=== PATIENT | male | born 1960 | race Caucasian/White ===

== ENCOUNTER 2020-10-12 19:15 | Inpatient (IN) ==
--- NOTE | 2020-10-12 21:24 | DR.DIZZY ---
HPI Time seen Time Seen by Provider: 10/12/20 21:16 PCP Primary Care Physician: Maggie HPI Comment HPI Comment: He's feeling dizzy as below with diarrhea x 2 days after he used an otc laxative; admits using otc laxative quite a bit to have a bm; otherwise, he's extremely constipated; no n/v/f/c; he has a cough when he "drinks water"; admits abd pain but denies wt loss, h/o anemia, cp, sob, dysuria and hematuria. Complaint Chief Complaint:: "I feel dizzy. When I pee, I pee a lot. Dry mouth. Pain in my neck and back from bad discs." COVID-19 Coronavirus risk:travel/contact w/high risk person: No Has patient experienced Coronavirus symptoms: No Source History Provided: Patient Timing Onset of Chief Complaint: 10/10/20 Context Stroke Symptoms: None PMH PMH Past Medical History: Yes Past Medical History: Arthritis Past Medical History Comment: pain doctor for pain management Past Surgical History: Yes Surgical History: Cholecystectomy Family History History of Family Medical Conditions: No Family Medical History: Cancer Social History Alcohol Use: None Do you use any recreational Drugs:: No Lives With: Spouse Lives Where: Home Travel Risk Coronavirus risk:travel/contact w/high risk person: No Has patient experienced Coronavirus symptoms: No Infectious screening In the last 2 months have you had wt loss of >10#?: NO Have you had fever, night sweats or hemotysis?: No Have you traveled outside the country in the last 6 months?: No Isolation: Standard ROS Review of Systems Eyes: No Symptoms Reported ENTM: No Symptoms Reported Cardiovascular: No Symptoms Reported Genitourinary: No Symptoms Reported Neurological: No Symptoms Reported Integumentary: No Symptoms Reported Hematologic/Lymphatic: No Symptoms Reported PE Vital Signs Vitals: Temperature 98.1 F Pulse Rate [Left] 92 Pulse Rate 86 Respiratory Rate 16 Blood Pressure [Left Arm] 124/56 Blood Pressure [Right Arm] 176/80 Blood Pressure 118/60 O2 Sat by Pulse Oximetry 98 General Limitations: No Limitations General Appearance: Alert and In No Apparent Distress Head Head Exam: Normal Inspection Eyes Eye exam: Normal Appearance ENT ENT Exam: Normal Exam, Normal Oropharynx and Normal External Ear Exam Neck Neck Exam: Normal Inspection and Full ROM Chest Chest Inspection: Normal Inspection Respiratory Respiratory Exam: Normal Lung Sounds Bilat Cardiovascular Cardiovascular Exam: Regular Rate and Normal Rhythm Abdominal Exam Abdominal Exam: Normal Inspection, Soft and Hyperactive Bowel Sounds Abdominal Tenderness: Epigastrium Rectal Rectal Exam: Deferred Extremeties Extremities Exam: Normal Inspection and Full ROM Back Back Exam: Normal Inspection and Full ROM Neurologic Neurological Exam: Alert and Oriented X3 Psychiatric Psychiatric Exam: Normal Affect and Normal Mood Skin Skin Exam: Pallor COURSE Consultation Call Returned: 00:05 (admission d/w Dr Serrano who accepts; transfuse) ROR Labs Reviewed Laboratory Results Reviewed?: Yes Result Diagrams: 10/12/20 21:30 10/12/20 21:30 Laboratory: WBC 32.8 X10^3/uL (3.6-10.0) H* 10/12/20 21: RBC 3.98 X10^6/uL (4.7-6.0) L 10/12/20 21:30 Hgb 7.7 g/dL (13.5-18.0) L 10/12/20 21: Hct 25.7 % (42.0-54.0) L 10/12/20 21: MCV 64.6 fL (80.0-100.0) L 10/12/20 21:30 MCH 19.3 pg (27.0-34.0) L 10/12/20 21: MCHC 29.9 g/dL (33.0-35.0) L 10/12/20 21:30 RDW 18.8 % (11.6-16.5) H 10/12/20 21:30 Plt Count 409 X10^3/uL (150.0-450.0) 10/12/20 21: Plt Count Comment Adequate (ADEQUATE) 10/12/20 21: MPV 7.4 fL (7.4-11.0) 10/12/20 21:30 Neut % (Auto) 86.5 % (42.0-75.0) H 10/12/20 21: Lymph % (Auto) 8.2 % (21.0-51.0) L 10/12/20 21:30 [place] % (Auto) 4.4 % (0.0-13.0) 10/12/20 21: Eos % (Auto) 0.4 % (0.9-2.9) L 10/12/20 21:30 Baso % (Auto) 0.5 % (0.2-1.0) 10/12/20 21:30 Neut # (Auto) 28.3 x10^3/uL (2.2-4.8) H 10/12/20 21:30 Lymph # (Auto) 2.7 X10^3/uL (1.3-2.9) 10/12/20 21:30 [place] # (Auto) 1.4 x10^3/uL (0.3-0.8) H 10/12/20 21:30 Eos # (Auto) 0.1 x10^3/uL (0.0-0.2) 10/12/20 21:30 Baso # (Auto) 0.2 X10^3/uL (0.0-0.1) H 10/12/20 21:30 Absolute Nucleated RBC 0.1 /100WBC 10/12/20 21:30 Total Counted 100 10/12/20 21:30 Neutrophils % (Manual) 91 % (39-76) H 10/12/20 21:30 Lymphocytes % (Manual) 7 % (13-43) L 10/12/20 21:30 Monocytes % (Manual) 2 % (4-9) L 10/12/20 21:30 Plt Morphology Comment Normal (NORMAL) 10/12/20 21: RBC Morphology Abnormal (NORMAL) 10/12/20 21:30 Hypochromasia 2+ A 10/12/20 21:30 Microcytosis 2+ A 10/12/20 21:30 Target Cells Present 10/12/20 21:30 Sodium 132 mmol/L (136-145) L 10/12/20 21:30 Corrected Sodium TNP 10/12/20 21:30 Potassium 4.7 mmol/L (3.5-5.1) 10/12/20 21:30 Chloride 98 mmol/L (98-107) 10/12/20 21: Carbon Dioxide 27.1 mmol/L (21-32) 10/12/20 21:30 BUN 36 mg/dL (7-18) H 10/12/20 21:30 Creatinine 1.90 mg/dL (0.70-1.30) H 10/12/20 21:30 Est GFR (MDRD) Af Amer 47 (>60) L 10/12/20 21:30 Est GFR (MDRD) Non-Af 38 (>60) L 10/12/20 21: Glucose 103 mg/dL (65-99) H 10/12/20 21:30 Calcium 8.6 mg/dL (8.5-10.1) 10/12/20 21: Corrected Calcium 10.3 mg/dL (8.5-10.1) H 10/12/20:30 Total Bilirubin 0.60 mg/dL (0.2-1.0) 10/12/20: AST 89 Units/L (15-37) H 10/12/20: ALT 53 Units/L (12-78) 10/12/20: Alkaline Phosphatase 293 Units/L (46-116) H 10/12/20: Total Protein 6.7 g/dL (6.4-8.2) 10/12/20: Albumin 1.9 g/dL (3.4-5.0) L 10/12/20: Globulin 4.8 g/dL (2.5-4.5) H 10/12/20 21: Albumin/Globulin Ratio 0.4 Ratio (1.1-2.1) L 10/12/20: Lipase 46 Units/L (73-393) L 10/12/20 21:30 Blood Type O NEGATIVE 10/12/20 23:20 Antibody Screen Negative 10/12/20 23:20 XRAY X-ray Results: ct abd: - Bilateral nonobstructing nephrolithiasis is seen. Mild left-sided hydroureter and hydronephrosis is present and may be due to a recently passed kidney stone. - Moderate to severe constipation is noted. In addition, there is progressively worsening colonic wall edema with pericolic inflammatory changes involving the rectosigmoid region. Overall, this appears worsened when compared to the prior study dated April 26, 2019. Differential diagnosis for this imaging feature should include, but is not limited to infectious, inflammatory process, or possible underlying malignancy. Given the severity of the constipation, I am concerned about the possibility of obstruction due to a mass causing constipation. Follow-up with surgery may be obtained as clinically indicated. - Status post cholecystectomy abd series: . Abundant fecal material is seen within the left-sided large bowel loops and rectum in keeping with constipation and possible fecal retention in the appropriate clinical setting. 2. Abundant air is seen within up to 6.1 cm dilated right-sided large bowel loops (proximal to the fecal column, and small bowel loops, which may represent obstipation and/or ileus. 3. No gross organomegaly, free intraperitoneal air, or suspicious calcifications seen. Opioid Opioid Risk Tool Age (Shakir box if 16-45): Yes History of Preadolescent Sexual Abuse: No Total: 1 Total Score Risk Category: Low Risk Copyright: Noe MALONEY predicting aberrant behaviors Diagnosis Discharge Problem: Neutrophilic leukocytosis, Dehydration, Symptomatic anemia, Bilateral nephrolithiasis Diarrhea Qualifiers: Diarrhea type: unspecified type Qualified Code(s): R19.7 - Diarrhea, unspecified Anemia Qualifiers: Anemia type: unspecified type Qualified Code(s): D64.9 - Anemia, unspecified Renal failure, acute Qualifiers: Acute renal failure type: unspecified Qualified Code(s): N17.9 - Acute kidney failure, unspecified Constipation Qualifiers: Constipation type: unspecified constipation type Qualified Code(s): K59.00 - Constipation, unspecified Instructions Instructions: Diarrhea, Adult, Madn-mn-Lzyd Forms: Precautions for COVID19 Patient Portal Social Distancing
--- NOTE | 2020-10-12 21:47 | RAD ---
EXAM: ABDOMEN X-RAY SERIES WITH CXRHISTORY: Abdominal pain.TECHNIQUE: Supine and erect views of the abdomen; frontal single view CXRCOMPARISON: None.FINDINGS:ABDOMEN: Abundant fecal material is seen within the left-sided large bowel loops and rectum in keeping with constipation and possible fecal retention in the appropriate clinical setting.Abundant air is seen within up to 6.1 cm dilated right-sided large bowel loops (proximal to the fecal column, and small bowel loops, which may represent obstipation and/or ileus.No gross organomegaly, free intraperitoneal air, or suspicious calcifications seen. Multiple surgical clips are seen in the right upper quadrant. Diffuse osteopenia is noted.CHEST: The heart size and mediastinum are within normal limits. The lung vallejo and costophrenic angles are clear. There is no acute parenchymal infiltrate, pleural effusion, or pneumothorax seen. The visualized bony structures are within normal limits.IMPRESSION:1. Abundant fecal material is seen within the left-sided large bowel loops and rectum in keeping with constipation and possible fecal retention in the appropriate clinical setting.2. Abundant air is seen within up to 6.1 cm dilated right-sided large bowel loops (proximal to the fecal column, and small bowel loops, which may represent obstipation and/or ileus.3. No gross organomegaly, free intraperitoneal air, or suspicious calcifications seen.4. No evidence for acute cardiopulmonary disease seen.Electronically signed by: Lindsay Quiñonez (Oct 12, 2020 21:46:14)
[2020-10-12 21:58] LABS: ALANINE AMINOTRANSFERASE 53 Units/L (12-78); ALBUMIN 1.9 g/dL (3.4-5.0); ALKALINE PHOSPHATASE 293 Units/L (46-116); ASPARTATE AMINO TRANSFERASE 89 Units/L (15-37); BLOOD UREA NITROGEN 36 mg/dL (7-18); CALCIUM 8.6 mg/dL (8.5-10.1); CARBON DIOXIDE 27.1 mmol/L (21-32); CHLORIDE 98 mmol/L (98-107); COR CA(FOR HYPOALB) 10.3 mg/dL (8.5-10.1); LIPASE 46 Units/L (73-393); SODIUM 132 mmol/L (136-145); TOTAL PROTEIN 6.7 g/dL (6.4-8.2); eGFR NON BLACK RACES 38 (>60)
[2020-10-12 22:02] LABS: BASOPHILS # (AUTO) 0.2 X10^3/uL (0.0-0.1); BASOPHILS % (AUTO) 0.5 % (0.2-1.0); EOSINOPHILS # (AUTO) 0.1 x10^3/uL (0.0-0.2); EOSINOPHILS % (AUTO) 0.4 % (0.9-2.9); HEMATOCRIT 25.7 % (42.0-54.0); HEMOGLOBIN 7.7 g/dL (13.5-18.0); LYMPHOCYTES # (AUTO) 2.7 X10^3/uL (1.3-2.9); LYMPHOCYTES % (AUTO) 8.2 % (21.0-51.0); MEAN CORPUSCULAR HEMOGLOBIN 19.3 pg (27.0-34.0); MEAN CORPUSCULAR HGB CONC 29.9 g/dL (33.0-35.0); MEAN CORPUSCULAR VOLUME 64.6 fL (80.0-100.0); MEAN PLATELET VOLUME 7.4 fL (7.4-11.0); MONOCYTES # (AUTO) 1.4 x10^3/uL (0.3-0.8); MONOCYTES % (AUTO) 4.4 % (0.0-13.0); NEUTROPHILS # (AUTO) 28.3 x10^3/uL (2.2-4.8); NEUTROPHILS % (AUTO) 86.5 % (42.0-75.0); PLATELET COUNT 409 X10^3/uL (150.0-450.0); RED BLOOD COUNT 3.98 X10^6/uL (4.7-6.0); RED CELL DISTRIBUTION WIDTH 18.8 % (11.6-16.5)
[2020-10-12 22:19] LABS: HYPOCHROMASIA 2+; MICROCYTOSIS 2+; PLATELET MORPHOLOGY COMMENT NORMAL (NORMAL); TARGET CELLS PRESENT; WHITE BLOOD COUNT 32.8 X10^3/uL (3.6-10.0)
[2020-10-12] MEDS ORDERED: NS 1000 ML 1,000 ML ONE (23:25)
[2020-10-12] MEDS: NS 1000 ML 1,000 ML IV SCH (23:32)
--- NOTE | 2020-10-13 02:02 | CT ---
STUDY: CT ABDOMEN AND PELVIS WITHOUT IV CONTRASTCOMPARISON: April 26, 2019TECHNIQUE: Axial images were obtained of the abdomen and pelvis without IV contrast. Sagittal and coronal reformatted images were provided. All images were reviewed in a variety of windows and levels.RADIATION REDUCTION TECHNIQUE: Automated exposure control, adjustment of the mA or kV according to patient size, or iterative reconstruction techniques were used.HISTORY: PT STATES "I FEEL DIZZY, WHEN I PEE, I PEE ALOT. DRY MOUTH. PAIN IN MY NECK AND BACK FROM BAD DISCS" PT IS ALSO HAVING DIARRHEA, HE STATES "I TOOK A LAXATIVE"FINDINGS:Please note that lack of IV contrast does limit evaluation of the soft tissues and vascular detail.The visualized lower lung zones demonstrates scar-like changes with mild pleural thickening. The heart size is within normal limits. There is no evidence of a pericardial effusion.The liver, spleen, pancreas, adrenal glands, and kidneys are grossly unremarkable. The patient is status post cholecystectomy. Calcifications in the liver and spleen is most likely from prior cholecystectomy. Mild right-sided hydroureter and hydronephrosis is seen which may be from a recently passed kidney stone. Multiple calcified phleboliths are seen in the lower pelvis.Bilateral nonobstructing nephrolithiasis is noted.The stomach and small bowel appear grossly unremarkable. There is marked colonic wall thickening with pericolonic inflammatory changes around the rectosigmoid colon. Severe constipation is noted. These imaging features in the rectosigmoid colon are worrisome for a possible colonic mass which may be due to malignancy. Please note, this finding was previously noted on the April 26, 2019 CT examination but this appears worsened when compared to the prior study.There is no evidence of retroperitoneal or mesenteric lymphadenopathy.The visualized bones demonstrate degenerative changes. There are no concerning lytic or blastic lesions identified.IMPRESSION:- Bilateral nonobstructing nephrolithiasis is seen. Mild left-sided hydroureter and hydronephrosis is present and may be due to a recently passed kidney stone.- Moderate to severe constipation is noted. In addition, there is progressively worsening colonic wall edema with pericolic inflammatory changes involving the rectosigmoid region. Overall, this appears worsened when compared to the prior study dated April 26, 2019. Differential diagnosis for this imaging feature should include, but is not limited to infectious, inflammatory process, or possible underlying malignancy. Given the severity of the constipation, I am concerned about the possibility of obstruction due to a mass causing constipation. Follow-up with surgery may be obtained as clinically indicated.- Status post cholecystectomyElectronically signed by: Man Valladares (Oct 13, 2020 02:01:05)
[2020-10-13] MEDS ORDERED: NS 1000 ML 1,000 ML IV SCH (03:00)
[2020-10-13] MEDS ORDERED: PERCOCET TAB 5/325 MG ONE (03:03)
[2020-10-13] MEDS: PERCOCET TAB 5/325 MG PO PRN ×3 (03:07→20:59)
[2020-10-13] MEDS ORDERED: NS 500 ML IV 500 ML IV ONE (04:46)
[2020-10-13 05:56] LABS: BASOPHILS # (AUTO) 0.1 X10^3/uL (0.0-0.1); BASOPHILS % (AUTO) 0.2 % (0.2-1.0); EOSINOPHILS # (AUTO) 0.1 x10^3/uL (0.0-0.2); EOSINOPHILS % (AUTO) 0.2 % (0.9-2.9); HEMATOCRIT 27.1 % (42.0-54.0); HEMOGLOBIN 8.3 g/dL (13.5-18.0); MEAN CORPUSCULAR HEMOGLOBIN 19.7 pg (27.0-34.0); MEAN CORPUSCULAR HGB CONC 30.6 g/dL (33.0-35.0); MEAN CORPUSCULAR VOLUME 64.2 fL (80.0-100.0); MEAN PLATELET VOLUME 7.7 fL (7.4-11.0); MONOCYTES % (AUTO) 3.7 % (0.0-13.0); NEUTROPHILS # (AUTO) 25.3 x10^3/uL (2.2-4.8); NEUTROPHILS % (AUTO) 88.9 % (42.0-75.0); PLATELET COUNT 414 X10^3/uL (150.0-450.0); RED BLOOD COUNT 4.21 X10^6/uL (4.7-6.0); RED CELL DISTRIBUTION WIDTH 19.6 % (11.6-16.5); WHITE BLOOD COUNT 28.4 X10^3/uL (3.6-10.0)
[2020-10-13 05:59] LABS: ALANINE AMINOTRANSFERASE 58 Units/L (12-78); ALBUMIN 2.2 g/dL (3.4-5.0); ALKALINE PHOSPHATASE 346 Units/L (46-116); ASPARTATE AMINO TRANSFERASE 91 Units/L (15-37); BLOOD UREA NITROGEN 35 mg/dL (7-18); CARBON DIOXIDE 25.2 mmol/L (21-32); CHLORIDE 96 mmol/L (98-107); COR CA(FOR HYPOALB) 10.4 mg/dL (8.5-10.1); CREATININE 1.73 mg/dL (0.70-1.30); SODIUM 133 mmol/L (136-145); TOTAL PROTEIN 7.6 g/dL (6.4-8.2); eGFR NON BLACK RACES 43 (>60)
[2020-10-13 06:15] LABS: BILIRUBIN,URINE NEGATIVE (NEGATIVE); BLOOD/HEMOGLOBIN,URINE 5+ (NEGATIVE); GLUCOSE, URINE NEGATIVE (NEGATIVE); KETONES,URINE NEGATIVE (NEGATIVE); LEUKOCYTE ESTERASE ,URINE 3+ (NEGATIVE); NITRITES,URINE NEGATIVE (NEGATIVE); PROTEIN,URINE 3+ (NEGATIVE); UROBILINOGEN,URINE NORMAL (NORMAL)
[2020-10-13] MEDS: NS 1000 ML 1,000 ML IV SCH ×4 (06:29→23:09)
[2020-10-13 06:50] LABS: APPEARANCE,URINE SLIGHTLY HAZY (CLEAR); BACTERIA,URINE TRACE /HPF (NEGATIVE); COLOR,URINE YELLOW (YELLOW); SQUAMOUS EPITHELIAL CELL,UR RARE /HPF (NEGATIVE)
[2020-10-13 07:19] LABS: ANISOCYTOSIS SLIGHT; BAND NEUTROPHILS % 14 % (0-10); HYPOCHROMASIA 1+; PLATELET MORPHOLOGY COMMENT NORMAL (NORMAL)
[2020-10-13 08:54] LABS: IRON < 5 ug/dL (50-175)
[2020-10-13] MEDS ORDERED: NULYTELY or GO-LYTELY PO SCH (09:00)
[2020-10-13] MEDS ORDERED: COLACE CAP 100 MG PO SCH (09:00)
[2020-10-13] MEDS: PriLOSEC PO SCH (10:15)
[2020-10-13] MEDS ORDERED: LINZESS PO PRN (11:19)
[2020-10-13 11:28] LABS: MICROCYTOSIS 2+
[2020-10-13] MEDS ORDERED: ZOFRAN INJ 4 MG VIAL IVP NR (12:00)
[2020-10-13 13:15] VITALS: BMI 19.5
[2020-10-13] MEDS ORDERED: NS 100 ML IV + SPIKE MINIBAG* 100 ML IV ONE (17:47)
[2020-10-13] MEDS ORDERED: MERREM VIAL ONE (17:47)
[2020-10-13] MEDS: MERREM VIAL 500 MG in NS 100 ML IV + SPIKE MINIBAG* 100 ML IV SCH ×2 (19:00→21:00)
[2020-10-14] MEDS: MERREM VIAL 500 MG in NS 100 ML IV + SPIKE MINIBAG* 100 ML IV SCH ×3 (06:06→22:10)
--- NOTE | 2020-10-14 06:24 | RAD ---
[id number] is mild gaseous distention of scattered segments of small bowel and colon. The appearance does not suggest mechanical obstruction. There is n o evidence for mass, organ enlargement or urinary calcification. Surgical clips right upper quadrant. The lung bases are clear.IMPRESSIONMild nonobstructive intestinal distention. No excessive fecal bur den is identified.Electronically signed by: SHELLEY PUGH (Oct 14, 2020 06:22:36)
[2020-10-14 06:35] LABS: BASOPHILS % (AUTO) 0.1 % (0.2-1.0); EOSINOPHILS % (AUTO) 0.2 % (0.9-2.9); HEMATOCRIT 33.5 % (42.0-54.0); HEMOGLOBIN 10.5 g/dL (13.5-18.0); LYMPHOCYTES # (AUTO) 1.5 X10^3/uL (1.3-2.9); LYMPHOCYTES % (AUTO) 6.5 % (21.0-51.0); MEAN CORPUSCULAR HEMOGLOBIN 22.1 pg (27.0-34.0); MEAN CORPUSCULAR HGB CONC 31.5 g/dL (33.0-35.0); MEAN PLATELET VOLUME 7.7 fL (7.4-11.0); MONOCYTES # (AUTO) 1.3 x10^3/uL (0.3-0.8); MONOCYTES % (AUTO) 5.9 % (0.0-13.0); NEUTROPHILS # (AUTO) 19.8 x10^3/uL (2.2-4.8); NEUTROPHILS % (AUTO) 87.3 % (42.0-75.0); PLATELET COUNT 332 X10^3/uL (150.0-450.0); RED BLOOD COUNT 4.78 X10^6/uL (4.7-6.0); RED CELL DISTRIBUTION WIDTH 25.1 % (11.6-16.5); WHITE BLOOD COUNT 22.7 X10^3/uL (3.6-10.0)
[2020-10-14 06:48] LABS: ALANINE AMINOTRANSFERASE 60 Units/L (12-78); ALBUMIN 1.8 g/dL (3.4-5.0); ALKALINE PHOSPHATASE 522 Units/L (46-116); ASPARTATE AMINO TRANSFERASE 87 Units/L (15-37); BLOOD UREA NITROGEN 21 mg/dL (7-18); CALCIUM 8.8 mg/dL (8.5-10.1); CARBON DIOXIDE 26.7 mmol/L (21-32); CHLORIDE 99 mmol/L (98-107); COR CA(FOR HYPOALB) 10.6 mg/dL (8.5-10.1); CREATININE 1.28 mg/dL (0.70-1.30); SODIUM 135 mmol/L (136-145); TOTAL PROTEIN 6.6 g/dL (6.4-8.2); eGFR NON BLACK RACES > 60 (>60)
[2020-10-14 07:10] LABS: BAND NEUTROPHILS % 3 % (0-10); PLATELET MORPHOLOGY COMMENT NORMAL (NORMAL)
[2020-10-14 07:11] LABS: ANISOCYTOSIS 3+
[2020-10-14] MEDS: PriLOSEC PO SCH (08:45)
[2020-10-14] MEDS ORDERED: LINZESS PO SCH (09:00)
[2020-10-14] MEDS ORDERED: NS 100 ML IV 100 ML with VENOFER 400 MG IV NR ×2 (09:00)
[2020-10-14] MEDS: NS 1000 ML 1,000 ML IV SCH ×2 (10:22→14:57)
[2020-10-14] MEDS: COLACE CAP 100 MG PO SCH ×2 (10:24→20:47)
--- NOTE | 2020-10-14 11:41 | DR.PROGNOT ---
Hospital Progress Notes - Progress Note for Day of: Progress Note Date: 10/14/20 - Chief Complaint Chief Complaint: having moderate abdominal pain and loose bloody mucousy BM . no nausea or vomiting .. having BLOOD transfusioin - Past Medical Family Social History Past Med/Fam/Surg Hx: No changes since H&P Allergies: Allergies tramadol Allergy (Unknown, Verified 10/12/20 20:50) meloxicam [From Mobic] Allergy (Verified 10/12/20 20:50) Penicillins Allergy (Verified 04/26/19 00:59) - Review Of Systems ROS: No change since H&P - Vital Signs Vital Signs: Temperature 99.3 F Pulse Rate [Left] 86 Pulse Rate 86 Respiratory Rate 20 Blood Pressure [Left Arm] 136/65 Blood Pressure [Right Arm] 152/69 Blood Pressure 118/60 O2 Sat by Pulse Oximetry 94 - Physical Exam Oriented: Normal Eyes: Normal Ear: Normal Nose: Normal Respiratory: Normal Cardiovascular: Normal : Normal GI:Auscultation: Normal GI: Tenderness: Diffuse (mild distention and tympany ..BS+.. rectal exam revealed large, friable low rectal mass with partial obstruction .) Skin: Normal Musculoskeletal: Normal Psychiatric: Normal Mood Description: Calm Speech Pattern: Clear, Appropriate - Laboratory and Diagnostics Result Diagrams: 10/14/20 06:08 10/14/20 06:08 Labs: Laboratory WBC 22.7 X10^3/uL (3.6-10.0) H 10/14/20 06:08 RBC 4.78 X10^6/uL (4.7-6.0) 10/14/20 06:08 Hgb 10.5 g/dL (13.5-18.0) L D 10/14/20 06:08 Hct 33.5 % (42.0-54.0) L 10/14/20 06:08 MCV 70.0 fL (80.0-100.0) L 10/14/20 06:08 MCH 22.1 pg (27.0-34.0) L 10/14/20 06:08 MCHC 31.5 g/dL (33.0-35.0) L 10/14/20 06:08 RDW 25.1 % (11.6-16.5) H 10/14/20 06:08 Plt Count 332 X10^3/uL (150.0-450.0) 10/14/20 06:08 Plt Count Comment Adequate (ADEQUATE) 10/14/20 06:08 MPV 7.7 fL (7.4-11.0) 10/14/20 06:08 Neut % (Auto) 87.3 % (42.0-75.0) H 10/14/20 06:08 Lymph % (Auto) 6.5 % (21.0-51.0) L 10/14/20 06:08 [place] % (Auto) 5.9 % (0.0-13.0) 10/14/20 06:08 Eos % (Auto) 0.2 % (0.9-2.9) L 10/14/20 06:08 Baso % (Auto) 0.1 % (0.2-1.0) L 10/14/20 06:08 Neut # (Auto) 19.8 x10^3/uL (2.2-4.8) H 10/14/20 06:08 Lymph # (Auto) 1.5 X10^3/uL (1.3-2.9) 10/14/20 06:08 [place] # (Auto) 1.3 x10^3/uL (0.3-0.8) H 10/14/20 06:08 Eos # (Auto) 0.0 x10^3/uL (0.0-0.2) 10/14/20 06:08 Baso # (Auto) 0.0 X10^3/uL (0.0-0.1) 10/14/20 06:08 Absolute Nucleated RBC 0.0 /100WBC 10/14/20 06:08 Total Counted 0 10/14/20 06:08 Neutrophils % (Manual) 89 % (39-76) H 10/14/20 06:08 Band Neutrophils % 3 % (0-10) 10/14/20 06:08 Lymphocytes % (Manual) 4 % (13-43) L 10/14/20 06:08 Monocytes % (Manual) 4 % (4-9) 10/14/20 06:08 Plt Morphology Comment Normal (NORMAL) 10/14/20 06:08 RBC Morphology Abnormal (NORMAL) 10/14/20 06:08 Dimorphic RBCs Slight 10/14/20 06:08 Hypochromasia 1+ A 10/13/20 04:00 Anisocytosis 3+ A 10/14/20 06:08 Microcytosis 2+ A 10/13/20 04:00 Macrocytosis Wall Cleaner 10/13/20 04:00 Target Cells Present 10/12/20 21:30 Sodium 135 mmol/L (136-145) L 10/14/20 06:08 Corrected Sodium TNP 10/14/20 06:08 Potassium 3.6 mmol/L (3.5-5.1) 10/14/20 06:08 Chloride 99 mmol/L (98-107) 10/14/20 06:08 Carbon Dioxide 26.7 mmol/L (21-32) 10/14/20 06:08 BUN 21 mg/dL (7-18) H 10/14/20 06:08 Creatinine 1.28 mg/dL (0.70-1.30) 10/14/20 06:08 Est GFR (MDRD) Af Amer > 60 (>60) 10/14/20 06:08 Est GFR (MDRD) Non-Af > 60 (>60) 10/14/20 06:08 Glucose 91 mg/dL (65-99) 10/14/20 06:08 POC Glucose (mg/dL) 86 mg/dL (65-99) 10/14/20 11:33 Calcium 8.8 mg/dL (8.5-10.1) 10/14/20 06:08 Corrected Calcium 10.6 mg/dL (8.5-10.1) H 10/14/20 06:08 Iron < 5 ug/dL (50-175) L 10/13/20 04:00 Transferrin 195 mg/dL (202-364) L 10/13/20 04:00 Ferritin 114 ng/mL (26-388) 10/13/20 04:00 Total Bilirubin 1.40 mg/dL (0.2-1.0) H 10/14/20 06:08 AST 87 Units/L (15-37) H 10/14/20 06:08 ALT 60 Units/L (12-78) 10/14/20 06:08 Alkaline Phosphatase 522 Units/L (46-116) H 10/14/20 06:08 Total Protein 6.6 g/dL (6.4-8.2) 10/14/20 06:08 Albumin 1.8 g/dL (3.4-5.0) L 10/14/20 06:08 Globulin 4.8 g/dL (2.5-4.5) H 10/14/20 06:08 Albumin/Globulin Ratio 0.4 Ratio (1.1-2.1) L 10/14/20 06:08 Lipase 46 Units/L (73-393) L 10/12/20 21:30 Vitamin B12 > 2000 pg/mL (193-986) H 10/13/20 04:00 Folate 4.7 ng/mL (>8.6) L 10/13/20 04:00 Specimen Type Clean catch urine 10/13/20 06:09 Urine Color Yellow (YELLOW) 10/13/20 06:09 Urine Appearance Slightly hazy (CLEAR) 10/13/20 06:09 Urine pH 7.0 (5.0 - 8.0) 10/13/20 06:09 Ur Specific [place] 1.010 (1.000-1.030) 10/13/20 06:09 Urine Protein 3+ (NEGATIVE) 10/13/20 06:09 Urine Glucose (UA) Negative (NEGATIVE) 10/13/20 06:09 Urine Ketones Negative (NEGATIVE) 10/13/20 06:09 Urine Occult Blood 5+ (NEGATIVE) 10/13/20 06:09 Urine Nitrite Negative (NEGATIVE) 10/13/20 06:09 Urine Bilirubin Negative (NEGATIVE) 10/13/20 06:09 Urine Urobilinogen Normal (NORMAL) 10/13/20 06:09 Ur Leukocyte Esterase 3+ (NEGATIVE) 10/13/20 06:09 Urine RBC 3-5 /HPF (0-3) A 10/13/20 06:09 Urine WBC 20-30 /HPF (0-5) A 10/13/20 06:09 Ur Squamous Epith Cells Rare /HPF (NEGATIVE) 10/13/20 06:09 Urine Bacteria Trace /HPF (NEGATIVE) 10/13/20 06:09 Ur Culture Indicated? Yes/culture set up 10/13/20 06:09 SARS CoV-2 RNA Rapid ADELINA Negative (NEGATIVE) 10/13/20 02:55 Blood Type O NEGATIVE 10/12/20 23:20 Antibody Screen Negative 10/12/20 23:20 Crossmatch See Detail 10/12/20 23:20 - Assessment and Plan 1: large friable and bleeding low rectal cancer . anemia . partial large HORACIO . for colonoscopy on friday .. - Problem Patient Problems: Patient Problems Diarrhea (Acute) R19.7 Neutrophilic leukocytosis (Acute) D72.9 Anemia (Acute) D64.9 Renal failure, acute (Acute) N17.9 Dehydration (Acute) E86.0 Symptomatic anemia (Acute) D64.9 Constipation (Acute) K59.00 Bilateral nephrolithiasis (Acute) N20.0
[2020-10-14] MEDS: PERCOCET TAB 5/325 MG PO PRN ×2 (16:01→22:10)
[2020-10-14] MEDS ORDERED: NS 100 ML IV 100 ML with VENOFER 400 MG IV ONE ×2 (18:43)
[2020-10-14] MEDS: REQUIP PO SCH (20:47)
[2020-10-14] MEDS: NEURONTIN CAP 300 MG PO SCH ×2 (20:47→23:59)
[2020-10-14] MEDS: CYMBALTA PO SCH (20:47)
[2020-10-14] MEDS: CHECK PATCH XX SCH (20:47)
[2020-10-15] MEDS: NS 1000 ML 1,000 ML IV SCH ×6 (00:04→22:08)
[2020-10-15] MEDS: MERREM VIAL 500 MG in NS 100 ML IV + SPIKE MINIBAG* 100 ML IV SCH ×3 (05:22→21:49)
--- NOTE | 2020-10-15 06:07 | RAD ---
[id number]-up KUB again demonstrates mild nonobstr uctive gaseous dilatation of small and large bowel segments. There is little change since prior simil ar study. A significant portion of the right abdomen and flank are excluded from the available image. No developing mass, pneumatosis or ascites identified.IMPRESSIONNo definite change although technica lly limited by exclusion of significant portion of the right abdomen on this image.Electronically sig iban by: SHELLEY PUGH (Oct 15, 2020 06:05:49)
[2020-10-15 06:29] LABS: BASOPHILS % (AUTO) 0.2 % (0.2-1.0); EOSINOPHILS # (AUTO) 0.1 x10^3/uL (0.0-0.2); EOSINOPHILS % (AUTO) 0.5 % (0.9-2.9); HEMATOCRIT 34.9 % (42.0-54.0); LYMPHOCYTES # (AUTO) 1.6 X10^3/uL (1.3-2.9); LYMPHOCYTES % (AUTO) 7.2 % (21.0-51.0); MEAN CORPUSCULAR HEMOGLOBIN 22.3 pg (27.0-34.0); MEAN CORPUSCULAR HGB CONC 31.5 g/dL (33.0-35.0); MEAN CORPUSCULAR VOLUME 70.8 fL (80.0-100.0); MEAN PLATELET VOLUME 8.4 fL (7.4-11.0); MONOCYTES # (AUTO) 1.4 x10^3/uL (0.3-0.8); MONOCYTES % (AUTO) 6.5 % (0.0-13.0); NEUTROPHILS # (AUTO) 18.7 x10^3/uL (2.2-4.8); NEUTROPHILS % (AUTO) 85.6 % (42.0-75.0); PLATELET COUNT 308 X10^3/uL (150.0-450.0); RED BLOOD COUNT 4.93 X10^6/uL (4.7-6.0); RED CELL DISTRIBUTION WIDTH 25.4 % (11.6-16.5); WHITE BLOOD COUNT 21.8 X10^3/uL (3.6-10.0)
[2020-10-15 06:40] LABS: ALANINE AMINOTRANSFERASE 48 Units/L (12-78); ALBUMIN 1.7 g/dL (3.4-5.0); ALKALINE PHOSPHATASE 451 Units/L (46-116); ASPARTATE AMINO TRANSFERASE 55 Units/L (15-37); BLOOD UREA NITROGEN 16 mg/dL (7-18); CARBON DIOXIDE 23.2 mmol/L (21-32); CHLORIDE 99 mmol/L (98-107); COR CA(FOR HYPOALB) 10.8 mg/dL (8.5-10.1); CREATININE 1.06 mg/dL (0.70-1.30); SODIUM 135 mmol/L (136-145); TOTAL PROTEIN 6.4 g/dL (6.4-8.2); eGFR NON BLACK RACES > 60 (>60)
[2020-10-15 07:17] LABS: ANISOCYTOSIS 3+; PLATELET MORPHOLOGY COMMENT NORMAL (NORMAL)
[2020-10-15] MEDS ORDERED: NS 100 ML IV 100 ML with VENOFER 400 MG IV ONE ×2 (09:00)
[2020-10-15] MEDS: COLACE CAP 100 MG PO SCH ×2 (09:27→21:04)
[2020-10-15] MEDS: K-DUR TAB 20 MEQ PO SCH ×2 (09:28→21:04)
[2020-10-15] MEDS: NEURONTIN CAP 300 MG PO SCH ×4 (09:28→21:04)
[2020-10-15] MEDS: PriLOSEC PO SCH (09:28)
[2020-10-15] MEDS: CYMBALTA PO SCH ×2 (09:29→21:04)
[2020-10-15] MEDS: CHECK PATCH XX SCH ×2 (09:30→21:04)
[2020-10-15] MEDS: REQUIP PO SCH (21:04)
[2020-10-15] MEDS: PERCOCET TAB 5/325 MG PO PRN (21:05)
[2020-10-16] MEDS: MERREM VIAL 500 MG in NS 100 ML IV + SPIKE MINIBAG* 100 ML IV SCH ×3 (05:28→21:21)
--- NOTE | 2020-10-16 05:41 | CT ---
PROCEDURE: CT Abdomen and Pelvis with Contrast .HISTORY: ABDOMINAL PAIN CONSTIPATION POSSIBLE RECTAL MASS .TECHNIQUE: Axial images were performed through the abdomen and pelvis with the administration of IV contrast with multiplanar reformations . Oral contrast was administered. Dose reduction techniques including Automated Exposure Control (AEC) and adjustment of mA and kV were utilized .COMPARISON: 10/13/2020.TECHNICAL QUALITY: Satisfactory .FINDINGS:Small bilateral pleural effusions with dependent atelectasis both lung bases.Liver, spleen, adrenals, pancreas show no significant abnormality. Some punctate calcified granulomas in the spleen.Inhomogeneous enhancement throughout the left kidney suspicious for severe pyelonephritis without definite abscess. No obstructive uropathy. Right kidney is unremarkable.Previous cholecystectomy with normal size biliary tree.No abdominal ascites or pneumoperitoneum.Mild atherosclerosis aorta.No lymphadenopathy.Continued diffuse mucosal thickening and enlargement of the rectum with moderate perirectal stranding suspicious for proctitis with mass lesion not excluded. Some fluid and air in the remainder of the colon without obstruction. Normal appendix right lower quadrant.Pelvis shows no masses or free fluid in normal urinary bladder.No acute bony abnormality.IMPRESSION:1. Unchanged abnormal rectum could be related to proctitis or mass lesion.2. Findings consistent with severe pyelonephritis involving left kidney without obstruction and this appears to have increased compared to previous study.3. No other acute change identified.Electronically signed by: Jin Roca (Oct 16, 2020 05:39:42)
[2020-10-16] MEDS: NS 1000 ML 1,000 ML IV SCH ×3 (06:17→22:50)
[2020-10-16 06:21] LABS: BASOPHILS # (AUTO) 0.1 X10^3/uL (0.0-0.1); BASOPHILS % (AUTO) 0.3 % (0.2-1.0); EOSINOPHILS % (AUTO) 0.1 % (0.9-2.9); HEMATOCRIT 30.1 % (42.0-54.0); HEMOGLOBIN 9.4 g/dL (13.5-18.0); LYMPHOCYTES # (AUTO) 1.3 X10^3/uL (1.3-2.9); LYMPHOCYTES % (AUTO) 5.8 % (21.0-51.0); MEAN CORPUSCULAR HEMOGLOBIN 21.8 pg (27.0-34.0); MEAN CORPUSCULAR HGB CONC 31.2 g/dL (33.0-35.0); MEAN CORPUSCULAR VOLUME 69.9 fL (80.0-100.0); MONOCYTES # (AUTO) 2.4 x10^3/uL (0.3-0.8); MONOCYTES % (AUTO) 10.7 % (0.0-13.0); NEUTROPHILS # (AUTO) 18.6 x10^3/uL (2.2-4.8); NEUTROPHILS % (AUTO) 83.1 % (42.0-75.0); PLATELET COUNT 308 X10^3/uL (150.0-450.0); RED BLOOD COUNT 4.31 X10^6/uL (4.7-6.0); RED CELL DISTRIBUTION WIDTH 24.7 % (11.6-16.5); WHITE BLOOD COUNT 22.4 X10^3/uL (3.6-10.0)
[2020-10-16 06:28] LABS: ALANINE AMINOTRANSFERASE 31 Units/L (12-78); ALBUMIN 1.6 g/dL (3.4-5.0); ALKALINE PHOSPHATASE 328 Units/L (46-116); ASPARTATE AMINO TRANSFERASE 37 Units/L (15-37); BLOOD UREA NITROGEN 11 mg/dL (7-18); CALCIUM 8.5 mg/dL (8.5-10.1); CARBON DIOXIDE 24.5 mmol/L (21-32); CHLORIDE 102 mmol/L (98-107); COR CA(FOR HYPOALB) 10.4 mg/dL (8.5-10.1); SODIUM 137 mmol/L (136-145); TOTAL PROTEIN 5.7 g/dL (6.4-8.2); eGFR NON BLACK RACES > 60 (>60)
[2020-10-16 07:02] LABS: ANISOCYTOSIS 2+; HYPOCHROMASIA 1+; PLATELET MORPHOLOGY COMMENT NORMAL (NORMAL); TARGET CELLS FEW
[2020-10-16] MEDS: CHECK PATCH XX SCH (08:09)
[2020-10-16] MEDS: COLACE CAP 100 MG PO SCH ×2 (08:10→22:21)
[2020-10-16] MEDS ORDERED: TYGACIL 50 MG VIAL 100 MG in NS 100 ML IV 100 ML IV ONE (09:11)
[2020-10-16] MEDS ORDERED: STERILE WATER IRRIGATION IR ONE (09:54)
[2020-10-16] MEDS: K-DUR TAB 20 MEQ PO SCH ×2 (10:14→22:22)
[2020-10-16] MEDS ORDERED: DIPRIVAN VIAL 20 ML ONE (12:45)
[2020-10-16] MEDS: PriLOSEC PO SCH (14:53)
[2020-10-16] MEDS: NEURONTIN CAP 300 MG PO SCH ×4 (14:53→21:00)
[2020-10-16] MEDS: CYMBALTA PO SCH ×2 (14:53→21:00)
[2020-10-16] MEDS: PERCOCET TAB 5/325 MG PO PRN ×2 (14:57→22:24)
[2020-10-16] MEDS: REQUIP PO SCH (21:15)
[2020-10-16] MEDS: TYGACIL 50 MG VIAL 50 MG in NS 100 ML IV 100 ML IV SCH (22:23)
[2020-10-16] MEDS: RESTORIL CAP 15 MG PO PRN (22:24)
[2020-10-17] MEDS: CHECK PATCH XX SCH ×3 (01:21→21:02)
[2020-10-17] MEDS: MERREM VIAL 500 MG in NS 100 ML IV + SPIKE MINIBAG* 100 ML IV SCH ×3 (05:47→21:49)
[2020-10-17 07:00] LABS: BASOPHILS # (AUTO) 0.1 X10^3/uL (0.0-0.1); BASOPHILS % (AUTO) 0.3 % (0.2-1.0); EOSINOPHILS % (AUTO) 0.1 % (0.9-2.9); HEMATOCRIT 33.3 % (42.0-54.0); HEMOGLOBIN 10.3 g/dL (13.5-18.0); LYMPHOCYTES # (AUTO) 1.8 X10^3/uL (1.3-2.9); LYMPHOCYTES % (AUTO) 6.5 % (21.0-51.0); MEAN CORPUSCULAR HEMOGLOBIN 21.9 pg (27.0-34.0); MEAN CORPUSCULAR HGB CONC 30.8 g/dL (33.0-35.0); MEAN CORPUSCULAR VOLUME 71.1 fL (80.0-100.0); MEAN PLATELET VOLUME 8.2 fL (7.4-11.0); MONOCYTES # (AUTO) 2.2 x10^3/uL (0.3-0.8); NEUTROPHILS # (AUTO) 23.6 x10^3/uL (2.2-4.8); NEUTROPHILS % (AUTO) 85.1 % (42.0-75.0); PLATELET COUNT 411 X10^3/uL (150.0-450.0); RED BLOOD COUNT 4.68 X10^6/uL (4.7-6.0); RED CELL DISTRIBUTION WIDTH 25.1 % (11.6-16.5); WHITE BLOOD COUNT 27.8 X10^3/uL (3.6-10.0)
[2020-10-17 07:17] LABS: ALANINE AMINOTRANSFERASE 42 Units/L (12-78); ALBUMIN 1.9 g/dL (3.4-5.0); ALKALINE PHOSPHATASE 395 Units/L (46-116); ASPARTATE AMINO TRANSFERASE 49 Units/L (15-37); BLOOD UREA NITROGEN 21 mg/dL (7-18); CALCIUM 8.3 mg/dL (8.5-10.1); CARBON DIOXIDE 20.9 mmol/L (21-32); CHLORIDE 101 mmol/L (98-107); CREATININE 1.04 mg/dL (0.70-1.30); SODIUM 136 mmol/L (136-145); eGFR NON BLACK RACES > 60 (>60)
[2020-10-17 07:55] LABS: HYPOCHROMASIA 2+; PLATELET MORPHOLOGY COMMENT NORMAL (NORMAL)
[2020-10-17 07:56] LABS: ANISOCYTOSIS 3+
[2020-10-17] MEDS: K-DUR TAB 20 MEQ PO SCH ×2 (09:21→21:02)
[2020-10-17] MEDS: NEURONTIN CAP 300 MG PO SCH ×4 (09:22→20:07)
[2020-10-17] MEDS: TYGACIL 50 MG VIAL 50 MG in NS 100 ML IV 100 ML IV SCH ×2 (09:22→21:04)
[2020-10-17] MEDS: COLACE CAP 100 MG PO SCH ×2 (09:22→21:02)
[2020-10-17] MEDS: PriLOSEC PO SCH (10:22)
[2020-10-17] MEDS: NS 1000 ML 1,000 ML IV SCH ×2 (11:12→17:05)
[2020-10-17] MEDS: PERCOCET TAB 5/325 MG PO PRN ×2 (14:03→21:05)
[2020-10-17] MEDS: REQUIP PO SCH (21:04)
[2020-10-17] MEDS: RESTORIL CAP 15 MG PO PRN (21:05)
[2020-10-17] MEDS: MIRALAX POWDER (1 DOSE 17 G) PO SCH (21:49)
[2020-10-18] MEDS: NS 1000 ML 1,000 ML IV SCH ×3 (00:38→16:07)
[2020-10-18] MEDS: MERREM VIAL 500 MG in NS 100 ML IV + SPIKE MINIBAG* 100 ML IV SCH ×3 (06:00→21:43)
[2020-10-18 06:23] LABS: BASOPHILS # (AUTO) 0.1 X10^3/uL (0.0-0.1); BASOPHILS % (AUTO) 0.5 % (0.2-1.0); EOSINOPHILS # (AUTO) 0.1 x10^3/uL (0.0-0.2); EOSINOPHILS % (AUTO) 0.3 % (0.9-2.9); HEMATOCRIT 30.2 % (42.0-54.0); HEMOGLOBIN 9.6 g/dL (13.5-18.0); LYMPHOCYTES # (AUTO) 1.6 X10^3/uL (1.3-2.9); LYMPHOCYTES % (AUTO) 6.8 % (21.0-51.0); MEAN CORPUSCULAR HEMOGLOBIN 22.3 pg (27.0-34.0); MEAN CORPUSCULAR HGB CONC 31.6 g/dL (33.0-35.0); MEAN CORPUSCULAR VOLUME 70.5 fL (80.0-100.0); MEAN PLATELET VOLUME 8.1 fL (7.4-11.0); MONOCYTES # (AUTO) 1.9 x10^3/uL (0.3-0.8); NEUTROPHILS # (AUTO) 20.2 x10^3/uL (2.2-4.8); NEUTROPHILS % (AUTO) 84.4 % (42.0-75.0); PLATELET COUNT 403 X10^3/uL (150.0-450.0); RED BLOOD COUNT 4.28 X10^6/uL (4.7-6.0); RED CELL DISTRIBUTION WIDTH 25.8 % (11.6-16.5); WHITE BLOOD COUNT 23.9 X10^3/uL (3.6-10.0)
[2020-10-18 06:57] LABS: ALANINE AMINOTRANSFERASE 25 Units/L (12-78); ALBUMIN 1.6 g/dL (3.4-5.0); ALKALINE PHOSPHATASE 298 Units/L (46-116); ASPARTATE AMINO TRANSFERASE 25 Units/L (15-37); BLOOD UREA NITROGEN 22 mg/dL (7-18); CARBON DIOXIDE 23.2 mmol/L (21-32); CHLORIDE 105 mmol/L (98-107); COR CA(FOR HYPOALB) 9.9 mg/dL (8.5-10.1); CREATININE 0.99 mg/dL (0.70-1.30); MAGNESIUM 1.6 mg/dL (1.7-2.9); SODIUM 137 mmol/L (136-145); TOTAL PROTEIN 5.4 g/dL (6.4-8.2); eGFR NON BLACK RACES > 60 (>60)
[2020-10-18 07:55] LABS: ANISOCYTOSIS 3+; HYPOCHROMASIA 2+; PLATELET MORPHOLOGY COMMENT NORMAL (NORMAL); TARGET CELLS FEW
[2020-10-18] MEDS: NEURONTIN CAP 300 MG PO SCH ×4 (08:50→21:42)
[2020-10-18] MEDS: COLACE CAP 100 MG PO SCH ×2 (08:50→21:41)
[2020-10-18] MEDS: K-DUR TAB 20 MEQ PO SCH ×2 (08:50→21:42)
[2020-10-18] MEDS: CHECK PATCH XX SCH ×2 (08:50→21:41)
[2020-10-18] MEDS: PriLOSEC PO SCH (08:51)
[2020-10-18] MEDS: TYGACIL 50 MG VIAL 50 MG in NS 100 ML IV 100 ML IV SCH ×2 (08:51→21:43)
[2020-10-18] MEDS: CYMBALTA PO SCH (10:02)
[2020-10-18] MEDS: PERCOCET TAB 5/325 MG PO PRN ×3 (10:02→21:28)
--- NOTE | 2020-10-18 17:36 | DR.PROGNOT ---
Hospital Progress Notes - Progress Note for Day of: Progress Note Date: 10/18/20 - Chief Complaint Chief Complaint: having moderate abdominal pain and loose bloody mucousy BM . no nausea or vomiting .. WBC 23.9 . Hgb 9.7. Alb 1.6. EKG was abnormal ( to have ecchocardiogram ) - Past Medical Family Social History Past Med/Fam/Surg Hx: No changes since H&P Allergies: Allergies tramadol Allergy (Unknown, Verified 10/12/20 20:50) meloxicam [From Mobic] Allergy (Verified 10/12/20 20:50) Penicillins Allergy (Verified 04/26/19 00:59) - Review Of Systems ROS: No change since H&P - Vital Signs Vital Signs: Temperature 97.8 F Pulse Rate [Left] 72 Pulse Rate 86 Respiratory Rate 19 Blood Pressure [Left Arm] 127/59 Blood Pressure [Right Arm] 152/69 Blood Pressure 118/60 O2 Sat by Pulse Oximetry 100 - Physical Exam Oriented: Normal Eyes: Normal Ear: Normal Nose: Normal Respiratory: Normal Cardiovascular: Normal : Normal GI:Auscultation: Normal GI: Tenderness: Diffuse (mild distention and tympany ..BS+.. rectal exam revealed large, friable low rectal mass with partial obstruction .) Skin: Normal Musculoskeletal: Normal Psychiatric: Normal Mood Description: Calm Speech Pattern: Clear, Appropriate - Laboratory and Diagnostics Result Diagrams: 10/18/20 05:57 10/18/20 05:57 Labs: 10/12/20 23:25 Blood Blood Culture - Final Escherichia Coli 10/12/20 23:20 Blood Blood Culture - Final Escherichia Coli 10/13/20 06:09 Urine,Clean Catch Urine Culture - Final Escherichia Coli Laboratory WBC 23.9 X10^3/uL (3.6-10.0) H 10/18/20 05:57 RBC 4.28 X10^6/uL (4.7-6.0) L 10/18/20 05:57 Hgb 9.6 g/dL (13.5-18.0) L 10/18/20 05:57 Hct 30.2 % (42.0-54.0) L 10/18/20 05:57 MCV 70.5 fL (80.0-100.0) L 10/18/20 05:57 MCH 22.3 pg (27.0-34.0) L 10/18/20 05:57 MCHC 31.6 g/dL (33.0-35.0) L 10/18/20 05:57 RDW 25.8 % (11.6-16.5) H 10/18/20 05:57 Plt Count 403 X10^3/uL (150.0-450.0) 10/18/20 05:57 Plt Count Comment Adequate (ADEQUATE) 10/18/20 05:57 MPV 8.1 fL (7.4-11.0) 10/18/20 05:57 Neut % (Auto) 84.4 % (42.0-75.0) H 10/18/20 05:57 Lymph % (Auto) 6.8 % (21.0-51.0) L 10/18/20 05:57 [place] % (Auto) 8.0 % (0.0-13.0) 10/18/20 05:57 Eos % (Auto) 0.3 % (0.9-2.9) L 10/18/20 05:57 Baso % (Auto) 0.5 % (0.2-1.0) 10/18/20 05:57 Neut # (Auto) 20.2 x10^3/uL (2.2-4.8) H 10/18/20 05:57 Lymph # (Auto) 1.6 X10^3/uL (1.3-2.9) 10/18/20 05:57 [place] # (Auto) 1.9 x10^3/uL (0.3-0.8) H 10/18/20 05:57 Eos # (Auto) 0.1 x10^3/uL (0.0-0.2) 10/18/20 05:57 Baso # (Auto) 0.1 X10^3/uL (0.0-0.1) 10/18/20 05:57 Absolute Nucleated RBC 0.2 /100WBC 10/18/20 05:57 Total Counted 100 10/18/20 05:57 Neutrophils % (Manual) 86 % (39-76) H 10/18/20 05:57 Band Neutrophils % 3 % (0-10) 10/14/20 06:08 Lymphocytes % (Manual) 7 % (13-43) L 10/18/20 05:57 Monocytes % (Manual) 7 % (4-9) 10/18/20 05:57 Plt Morphology Comment Normal (NORMAL) 10/18/20 05:57 RBC Morphology Abnormal (NORMAL) 10/18/20 05:57 Dimorphic RBCs 1+ 10/18/20 05:57 Hypochromasia 2+ A 10/18/20 05:57 Anisocytosis 3+ A 10/18/20 05:57 Microcytosis 2+ A 10/13/20 04:00 Macrocytosis Sterile Process Tech 10/13/20 04:00 Target Cells Few 10/18/20 05:57 Sodium 137 mmol/L (136-145) 10/18/20 05:57 Corrected Sodium TNP 10/18/20 05:57 Potassium 3.7 mmol/L (3.5-5.1) 10/18/20 05:57 Chloride 105 mmol/L (98-107) 10/18/20 05:57 Carbon Dioxide 23.2 mmol/L (21-32) 10/18/20 05:57 BUN 22 mg/dL (7-18) H 10/18/20 05:57 Creatinine 0.99 mg/dL (0.70-1.30) 10/18/20 05:57 Est GFR (MDRD) Af Amer > 60 (>60) 10/18/20 05:57 Est GFR (MDRD) Non-Af > 60 (>60) 10/18/20 05:57 Glucose 88 mg/dL (65-99) 10/18/20 05:57 POC Glucose (mg/dL) 81 mg/dL (65-99) 10/18/20 05:40 Calcium 8.0 mg/dL (8.5-10.1) L 10/18/20 05:57 Corrected Calcium 9.9 mg/dL (8.5-10.1) 10/18/20 05:57 Magnesium 1.6 mg/dL (1.7-2.9) L 10/18/20 05:57 Iron < 5 ug/dL (50-175) L 10/13/20 04:00 Transferrin 195 mg/dL (202-364) L 10/13/20 04:00 Ferritin 114 ng/mL (26-388) 10/13/20 04:00 Total Bilirubin 0.90 mg/dL (0.2-1.0) 10/18/20 05:57 AST 25 Units/L (15-37) 10/18/20 05:57 ALT 25 Units/L (12-78) 10/18/20 05:57 Alkaline Phosphatase 298 Units/L (46-116) H 10/18/20 05:57 Total Protein 5.4 g/dL (6.4-8.2) L 10/18/20 05:57 Albumin 1.6 g/dL (3.4-5.0) L 10/18/20 05:57 Globulin 3.8 g/dL (2.5-4.5) 10/18/20 05:57 Albumin/Globulin Ratio 0.4 Ratio (1.1-2.1) L 10/18/20 05:57 Lipase 46 Units/L (73-393) L 10/12/20 21:30 Carcinoembryonic Ag 13.0 ng/mL (0.0-3.0) H 10/13/20 04:00 Vitamin B12 > 2000 pg/mL (193-986) H 10/13/20 04:00 Folate 4.7 ng/mL (>8.6) L 10/13/20 04:00 Specimen Type Clean catch urine 10/13/20 06:09 Urine Color Yellow (YELLOW) 10/13/20 06:09 Urine Appearance Slightly hazy (CLEAR) 10/13/20 06:09 Urine pH 7.0 (5.0 - 8.0) 10/13/20 06:09 Ur Specific [place] 1.010 (1.000-1.030) 10/13/20 06:09 Urine Protein 3+ (NEGATIVE) 10/13/20 06:09 Urine Glucose (UA) Negative (NEGATIVE) 10/13/20 06:09 Urine Ketones Negative (NEGATIVE) 10/13/20 06:09 Urine Occult Blood 5+ (NEGATIVE) 10/13/20 06:09 Urine Nitrite Negative (NEGATIVE) 10/13/20 06:09 Urine Bilirubin Negative (NEGATIVE) 10/13/20 06:09 Urine Urobilinogen Normal (NORMAL) 10/13/20 06:09 Ur Leukocyte Esterase 3+ (NEGATIVE) 10/13/20 06:09 Urine RBC 3-5 /HPF (0-3) A 10/13/20 06:09 Urine WBC 20-30 /HPF (0-5) A 10/13/20 06:09 Ur Squamous Epith Cells Rare /HPF (NEGATIVE) 10/13/20 06:09 Urine Bacteria Trace /HPF (NEGATIVE) 10/13/20 06:09 Ur Culture Indicated? Yes/culture set up 10/13/20 06:09 Stool Description 5g light brn liquid 10/16/20 17:50 Stl Occult Blood (IFOB) Positive (NEGATIVE) A 10/16/20 17:50 SARS CoV-2 RNA Rapid ADELINA Negative (NEGATIVE) 10/13/20 02:55 Tissue Pathology To follow 10/16/20 12:55 Blood Type O NEGATIVE 10/18/20 09:00 Antibody Screen Negative 10/18/20 09:00 Crossmatch See Detail 10/18/20 09:00 - Assessment and Plan 1: large friable and bleeding low rectal cancer . anemia and malnutrition. partial large HORACIO . same ATB , add Albumin . possible surgery on Friday . D/W Pt in details - Problem Patient Problems: Patient Problems Diarrhea (Acute) R19.7 Neutrophilic leukocytosis (Acute) D72.9 Anemia (Acute) D64.9 Renal failure, acute (Acute) N17.9 Dehydration (Acute) E86.0 Symptomatic anemia (Acute) D64.9 Constipation (Acute) K59.00 Bilateral nephrolithiasis (Acute) N20.0
[2020-10-18] MEDS: MIRALAX POWDER (1 DOSE 17 G) PO SCH ×2 (21:42)
[2020-10-18] MEDS: RESTORIL CAP 15 MG PO PRN (21:43)
[2020-10-18] MEDS: REQUIP PO SCH (21:43)
[2020-10-19] MEDS: NS 1000 ML 1,000 ML IV SCH ×3 (02:24→15:32)
[2020-10-19] MEDS: MERREM VIAL 500 MG in NS 100 ML IV + SPIKE MINIBAG* 100 ML IV SCH ×3 (05:53→22:02)
[2020-10-19] MEDS: PERCOCET TAB 5/325 MG PO PRN ×3 (06:00→20:47)
[2020-10-19 06:35] LABS: BASOPHILS # (AUTO) 0.1 X10^3/uL (0.0-0.1); BASOPHILS % (AUTO) 0.6 % (0.2-1.0); EOSINOPHILS # (AUTO) 0.1 x10^3/uL (0.0-0.2); EOSINOPHILS % (AUTO) 0.5 % (0.9-2.9); HEMATOCRIT 32.5 % (42.0-54.0); HEMOGLOBIN 10.1 g/dL (13.5-18.0); LYMPHOCYTES # (AUTO) 2.1 X10^3/uL (1.3-2.9); LYMPHOCYTES % (AUTO) 8.8 % (21.0-51.0); MEAN CORPUSCULAR HEMOGLOBIN 22.1 pg (27.0-34.0); MEAN CORPUSCULAR VOLUME 71.2 fL (80.0-100.0); MEAN PLATELET VOLUME 8.4 fL (7.4-11.0); MONOCYTES # (AUTO) 1.8 x10^3/uL (0.3-0.8); MONOCYTES % (AUTO) 7.8 % (0.0-13.0); NEUTROPHILS # (AUTO) 19.5 x10^3/uL (2.2-4.8); NEUTROPHILS % (AUTO) 82.3 % (42.0-75.0); PLATELET COUNT 494 X10^3/uL (150.0-450.0); RED BLOOD COUNT 4.56 X10^6/uL (4.7-6.0); RED CELL DISTRIBUTION WIDTH 25.7 % (11.6-16.5); WHITE BLOOD COUNT 23.7 X10^3/uL (3.6-10.0)
[2020-10-19 06:45] LABS: ALANINE AMINOTRANSFERASE 25 Units/L (12-78); ALBUMIN 1.8 g/dL (3.4-5.0); ALKALINE PHOSPHATASE 312 Units/L (46-116); ASPARTATE AMINO TRANSFERASE 24 Units/L (15-37); BLOOD UREA NITROGEN 22 mg/dL (7-18); CALCIUM 8.5 mg/dL (8.5-10.1); CHLORIDE 105 mmol/L (98-107); COR CA(FOR HYPOALB) 10.3 mg/dL (8.5-10.1); CREATININE 0.91 mg/dL (0.70-1.30); SODIUM 138 mmol/L (136-145); TOTAL PROTEIN 6.2 g/dL (6.4-8.2); eGFR NON BLACK RACES > 60 (>60)
[2020-10-19 07:22] LABS: ANISOCYTOSIS 2+; BAND NEUTROPHILS % 2 % (0-10); HYPOCHROMASIA 1+; PLATELET MORPHOLOGY COMMENT NORMAL (NORMAL)
[2020-10-19] MEDS: CHECK PATCH XX SCH ×2 (09:12→20:45)
[2020-10-19] MEDS: NEURONTIN CAP 300 MG PO SCH ×4 (09:14→20:46)
[2020-10-19] MEDS: PriLOSEC PO SCH (09:14)
[2020-10-19] MEDS: TYGACIL 50 MG VIAL 50 MG in NS 100 ML IV 100 ML IV SCH ×2 (09:14→22:02)
[2020-10-19] MEDS: K-DUR TAB 20 MEQ PO SCH ×2 (09:15→20:46)
[2020-10-19] MEDS: COLACE CAP 100 MG PO SCH ×2 (09:15→20:46)
[2020-10-19] MEDS: CYMBALTA PO SCH (09:15)
[2020-10-19] MEDS: ALBUMIN HUMAN 25%- 100 ML 100 ML IV SCH (10:00)
--- NOTE | 2020-10-19 10:14 | DR.PROGNOT ---
Hospital Progress Notes - Progress Note for Day of: Progress Note Date: 10/19/20 - Chief Complaint Chief Complaint: feeling better today . more talkative with less abdominal pain . still having loose bloody mucousy BM . no nausea , no vomiting .. WBC Alb 1.9. echocardiogram was normal - Past Medical Family Social History Past Med/Fam/Surg Hx: No changes since H&P Allergies: Allergies tramadol Allergy (Unknown, Verified 10/12/20 20:50) meloxicam [From Mobic] Allergy (Verified 10/12/20 20:50) Penicillins Allergy (Verified 04/26/19 00:59) - Review Of Systems ROS: No change since H&P - Vital Signs Vital Signs: Temperature 97.7 F Pulse Rate [Left] 73 Pulse Rate 86 Respiratory Rate 20 Blood Pressure [Left Arm] 143/64 Blood Pressure [Right Arm] 152/69 Blood Pressure 118/60 O2 Sat by Pulse Oximetry 98 - Physical Exam Oriented: Normal Eyes: Normal Ear: Normal Nose: Normal Respiratory: Normal Cardiovascular: Normal : Normal GI:Auscultation: Normal GI: Tenderness: Diffuse (mild distention and tympany ..BS+.. rectal exam revealed large, friable low rectal mass with partial obstruction .) Skin: Normal Musculoskeletal: Normal Psychiatric: Normal Mood Description: Calm Speech Pattern: Clear, Appropriate - Laboratory and Diagnostics Result Diagrams: 10/19/20 05:55 10/19/20 05:55 Labs: 10/12/20 23:25 Blood Blood Culture - Final Escherichia Coli 10/12/20 23:20 Blood Blood Culture - Final Escherichia Coli 10/13/20 06:09 Urine,Clean Catch Urine Culture - Final Escherichia Coli Laboratory WBC 23.7 X10^3/uL (3.6-10.0) H 10/19/20 05:55 RBC 4.56 X10^6/uL (4.7-6.0) L 10/19/20 05:55 Hgb 10.1 g/dL (13.5-18.0) L 10/19/20 05:55 Hct 32.5 % (42.0-54.0) L 10/19/20 05:55 MCV 71.2 fL (80.0-100.0) L 10/19/20 05:55 MCH 22.1 pg (27.0-34.0) L 10/19/20 05:55 MCHC 31.0 g/dL (33.0-35.0) L 10/19/20 05:55 RDW 25.7 % (11.6-16.5) H 10/19/20 05:55 Plt Count 494 X10^3/uL (150.0-450.0) H 10/19/20 05:55 Plt Count Comment Increased (ADEQUATE) 10/19/20 05:55 MPV 8.4 fL (7.4-11.0) 10/19/20 05:55 Neut % (Auto) 82.3 % (42.0-75.0) H 10/19/20 05:55 Lymph % (Auto) 8.8 % (21.0-51.0) L 10/19/20 05:55 [place] % (Auto) 7.8 % (0.0-13.0) 10/19/20 05:55 Eos % (Auto) 0.5 % (0.9-2.9) L 10/19/20 05:55 Baso % (Auto) 0.6 % (0.2-1.0) 10/19/20 05:55 Neut # (Auto) 19.5 x10^3/uL (2.2-4.8) H 10/19/20 05:55 Lymph # (Auto) 2.1 X10^3/uL (1.3-2.9) 10/19/20 05:55 [place] # (Auto) 1.8 x10^3/uL (0.3-0.8) H 10/19/20 05:55 Eos # (Auto) 0.1 x10^3/uL (0.0-0.2) 10/19/20 05:55 Baso # (Auto) 0.1 X10^3/uL (0.0-0.1) 10/19/20 05:55 Absolute Nucleated RBC 0.0 /100WBC 10/19/20 05:55 Total Counted 100 10/19/20 05:55 Neutrophils % (Manual) 84 % (39-76) H 10/19/20 05:55 Band Neutrophils % 2 % (0-10) 10/19/20 05:55 Lymphocytes % (Manual) 10 % (13-43) L 10/19/20 05:55 Monocytes % (Manual) 4 % (4-9) 10/19/20 05:55 Plt Morphology Comment Normal (NORMAL) 10/19/20 05:55 RBC Morphology Abnormal (NORMAL) 10/19/20 05:55 Dimorphic RBCs 1+ 10/18/20 05:57 Hypochromasia 1+ A 10/19/20 05:55 Anisocytosis 2+ A 10/19/20 05:55 Microcytosis 2+ A 10/13/20 04:00 Macrocytosis Sheet Metal Installer 10/13/20 04:00 Target Cells Few 10/18/20 05:57 Sodium 138 mmol/L (136-145) 10/19/20 05:55 Corrected Sodium TNP 10/19/20 05:55 Potassium 4.3 mmol/L (3.5-5.1) 10/19/20 05:55 Chloride 105 mmol/L (98-107) 10/19/20 05:55 Carbon Dioxide 25.0 mmol/L (21-32) 10/19/20 05:55 BUN 22 mg/dL (7-18) H 10/19/20 05:55 Creatinine 0.91 mg/dL (0.70-1.30) 10/19/20 05:55 Est GFR (MDRD) Af Amer > 60 (>60) 10/19/20 05:55 Est GFR (MDRD) Non-Af > 60 (>60) 10/19/20 05:55 Glucose 81 mg/dL (65-99) 10/19/20 05:55 POC Glucose (mg/dL) 81 mg/dL (65-99) 10/18/20 05:40 Calcium 8.5 mg/dL (8.5-10.1) 10/19/20 05:55 Corrected Calcium 10.3 mg/dL (8.5-10.1) H 10/19/20 05:55 Magnesium 1.6 mg/dL (1.7-2.9) L 10/18/20 05:57 Iron < 5 ug/dL (50-175) L 10/13/20 04:00 Transferrin 195 mg/dL (202-364) L 10/13/20 04:00 Ferritin 114 ng/mL (26-388) 10/13/20 04:00 Total Bilirubin 0.80 mg/dL (0.2-1.0) 10/19/20 05:55 AST 24 Units/L (15-37) 10/19/20 05:55 ALT 25 Units/L (12-78) 10/19/20 05:55 Alkaline Phosphatase 312 Units/L (46-116) H 10/19/20 05:55 Total Protein 6.2 g/dL (6.4-8.2) L 10/19/20 05:55 Albumin 1.8 g/dL (3.4-5.0) L 10/19/20 05:55 Globulin 4.4 g/dL (2.5-4.5) 10/19/20 05:55 Albumin/Globulin Ratio 0.4 Ratio (1.1-2.1) L 10/19/20 05:55 Lipase 46 Units/L (73-393) L 10/12/20 21:30 Carcinoembryonic Ag 13.0 ng/mL (0.0-3.0) H 10/13/20 04:00 Vitamin B12 > 2000 pg/mL (193-986) H 10/13/20 04:00 Folate 4.7 ng/mL (>8.6) L 10/13/20 04:00 Specimen Type Clean catch urine 10/13/20 06:09 Urine Color Yellow (YELLOW) 10/13/20 06:09 Urine Appearance Slightly hazy (CLEAR) 10/13/20 06:09 Urine pH 7.0 (5.0 - 8.0) 10/13/20 06:09 Ur Specific [place] 1.010 (1.000-1.030) 10/13/20 06:09 Urine Protein 3+ (NEGATIVE) 10/13/20 06:09 Urine Glucose (UA) Negative (NEGATIVE) 10/13/20 06:09 Urine Ketones Negative (NEGATIVE) 10/13/20 06:09 Urine Occult Blood 5+ (NEGATIVE) 10/13/20 06:09 Urine Nitrite Negative (NEGATIVE) 10/13/20 06:09 Urine Bilirubin Negative (NEGATIVE) 10/13/20 06:09 Urine Urobilinogen Normal (NORMAL) 10/13/20 06:09 Ur Leukocyte Esterase 3+ (NEGATIVE) 10/13/20 06:09 Urine RBC 3-5 /HPF (0-3) A 10/13/20 06:09 Urine WBC 20-30 /HPF (0-5) A 10/13/20 06:09 Ur Squamous Epith Cells Rare /HPF (NEGATIVE) 10/13/20 06:09 Urine Bacteria Trace /HPF (NEGATIVE) 10/13/20 06:09 Ur Culture Indicated? Yes/culture set up 10/13/20 06:09 Stool Description 5g light brn liquid 10/16/20 17:50 Stl Occult Blood (IFOB) Positive (NEGATIVE) A 10/16/20 17:50 SARS CoV-2 RNA Rapid ADELINA Negative (NEGATIVE) 10/13/20 02:55 Tissue Pathology To follow 10/16/20 12:55 Blood Type O NEGATIVE 10/18/20 09:00 Antibody Screen Negative 10/18/20 09:00 Crossmatch See Detail 10/18/20 09:00 - Assessment and Plan 1: large friable and bleeding low rectal cancer . anemia and malnutrition. partial large HORACIO . because of the bleeding and obstruction will proceed with resection and colostomy ( abdominal perineal resection . ). to place IJ line today , more bowel prep and surgery in am - Problem Patient Problems: Patient Problems Diarrhea (Acute) R19.7 Neutrophilic leukocytosis (Acute) D72.9 Anemia (Acute) D64.9 Renal failure, acute (Acute) N17.9 Dehydration (Acute) E86.0 Symptomatic anemia (Acute) D64.9 Constipation (Acute) K59.00 Bilateral nephrolithiasis (Acute) N20.0
[2020-10-19] MEDS: FLAGYL IV PREMIX 500 MG BAG 500 MG/100 ML BAG IV SCH ×3 (11:00→22:01)
--- NOTE | 2020-10-19 13:09 | DR.UPDATE ---
H&P Update History and Physical Update: History and Physical reviewed and patient examined. Changes noted: NO Yes with the following: H&P Reviewed: Yes Patient was examined?: Yes Procedures (ALL) - Central Line Placement PCM.CLCO: written consent Time out performed: Yes Patient placed pm monitor/pulse ox: Yes MD prep: mask, gown, gloves, other Centrial line prep: chlorhexidine scrub, sterile drapes applied Local anesthsia used: lidocane 1% Ultrasound used for placement: Yes (right ij id'd via u/s and cannulation visualized) Central line lumen ininserted: triple Post procedure: sutured in place, good blood return, all ports aspirated, flushed,capped, sterile dressing applied Post procedure xray: tip oc catheter in good position, no pneumothorax seen Patient tolerated procedure: Yes Complications: none
--- NOTE | 2020-10-19 13:23 | RAD ---
HISTORYCENTRAL LINE PLACEMENTSTUDYCHEST x-ray, 1 VIEWCOMPARISONX-ray 10/12/2020FINDINGSProbable COPD. Heart is normal in size. Persistent mild linear atelectasis in the lingula. Right central venous catheter is been placed and terminates in the region of the mid SVC. No pneumothorax or pleural effusion is seen.IMPRESSIONCentral venous catheter terminates in the region of the mid SVC. No pneumothorax is seen.Electronically signed by: Jon Barrett (Oct 19, 2020 13:21:46)
[2020-10-19] MEDS ORDERED: NS 500 ML IV 500 ML IV ONE (17:56)
[2020-10-19] MEDS: RESTORIL CAP 15 MG PO PRN (20:30)
[2020-10-19] MEDS: MIRALAX POWDER (1 DOSE 17 G) PO SCH (20:46)
[2020-10-19] MEDS: REQUIP PO SCH (20:47)
[2020-10-19] MEDS ORDERED: MAGNESIUM SULFATE 1 GRAM/100 mL PREMIX 1 GM/100 ML BAG IV PRN (23:47)
[2020-10-20] MEDS: NS 1000 ML 1,000 ML IV SCH ×4 (00:08→23:58)
[2020-10-20] MEDS ORDERED: NS 500 ML IV 500 ML IV ONE ×2 (00:47→01:08)
[2020-10-20] MEDS: PERCOCET TAB 5/325 MG PO PRN (02:50)
[2020-10-20] MEDS: FLAGYL IV PREMIX 500 MG BAG 500 MG/100 ML BAG IV SCH ×4 (02:57→21:01)
[2020-10-20 05:35] LABS: BASOPHILS # (AUTO) 0.2 X10^3/uL (0.0-0.1); EOSINOPHILS # (AUTO) 0.1 x10^3/uL (0.0-0.2); EOSINOPHILS % (AUTO) 0.4 % (0.9-2.9); HEMATOCRIT 36.1 % (42.0-54.0); HEMOGLOBIN 11.3 g/dL (13.5-18.0); LYMPHOCYTES % (AUTO) 9.5 % (21.0-51.0); MEAN CORPUSCULAR HEMOGLOBIN 23.1 pg (27.0-34.0); MEAN CORPUSCULAR HGB CONC 31.2 g/dL (33.0-35.0); MEAN PLATELET VOLUME 8.1 fL (7.4-11.0); MONOCYTES # (AUTO) 1.9 x10^3/uL (0.3-0.8); MONOCYTES % (AUTO) 9.4 % (0.0-13.0); NEUTROPHILS # (AUTO) 16.4 x10^3/uL (2.2-4.8); NEUTROPHILS % (AUTO) 79.7 % (42.0-75.0); PLATELET COUNT 428 X10^3/uL (150.0-450.0); RED BLOOD COUNT 4.87 X10^6/uL (4.7-6.0); RED CELL DISTRIBUTION WIDTH 26.4 % (11.6-16.5); WHITE BLOOD COUNT 20.6 X10^3/uL (3.6-10.0)
[2020-10-20 05:46] LABS: ALANINE AMINOTRANSFERASE 19 Units/L (12-78); ALBUMIN 2.1 g/dL (3.4-5.0); ALKALINE PHOSPHATASE 278 Units/L (46-116); ASPARTATE AMINO TRANSFERASE 19 Units/L (15-37); BLOOD UREA NITROGEN 21 mg/dL (7-18); CALCIUM 8.2 mg/dL (8.5-10.1); CARBON DIOXIDE 24.8 mmol/L (21-32); CHLORIDE 106 mmol/L (98-107); COR CA(FOR HYPOALB) 9.7 mg/dL (8.5-10.1); CREATININE 0.92 mg/dL (0.70-1.30); MAGNESIUM 1.7 mg/dL (1.7-2.9); SODIUM 141 mmol/L (136-145); TOTAL PROTEIN 5.6 g/dL (6.4-8.2); eGFR NON BLACK RACES > 60 (>60)
[2020-10-20 06:04] LABS: ANISOCYTOSIS 3+; PLATELET MORPHOLOGY COMMENT NORMAL (NORMAL)
[2020-10-20 06:05] LABS: HYPOCHROMASIA 1+; MICROCYTOSIS SLIGHT; TARGET CELLS 1+
[2020-10-20] MEDS: MERREM VIAL 500 MG in NS 100 ML IV + SPIKE MINIBAG* 100 ML IV SCH ×3 (06:36→21:03)
[2020-10-20] MEDS: COLACE CAP 100 MG PO SCH ×2 (08:12→21:00)
[2020-10-20] MEDS: K-DUR TAB 20 MEQ PO SCH ×2 (08:12→21:01)
[2020-10-20] MEDS: CYMBALTA PO SCH (08:12)
[2020-10-20] MEDS: CHECK PATCH XX SCH ×2 (08:12→21:00)
[2020-10-20] MEDS: NEURONTIN CAP 300 MG PO SCH ×4 (08:13→21:01)
[2020-10-20] MEDS: PriLOSEC PO SCH (08:13)
[2020-10-20] MEDS ORDERED: DILAUDID INJ ONE ×2 (09:23→09:57)
[2020-10-20] MEDS: DILAUDID INJ IVP PRN ×5 (09:47→21:31)
[2020-10-20] MEDS: TYGACIL 50 MG VIAL 50 MG in NS 100 ML IV 100 ML IV SCH ×2 (09:48→21:02)
[2020-10-20] MEDS ORDERED: FENTANYL INJ 250 mcg ONE (09:57)
[2020-10-20] MEDS ORDERED: OFIRMEV IV 1000 MG VIAL 1,000 MG/100 ML VIAL IV ONE (09:59)
[2020-10-20] MEDS ORDERED: BETADINE SOLN ONE (10:11)
[2020-10-20] MEDS ORDERED: POLYMYXIN B SULFATE ONE (10:11)
[2020-10-20] MEDS ORDERED: LR 1000 ML IV 1,000 ML IV ONE ×2 (10:27→12:10)
[2020-10-20] MEDS ORDERED: VERSED ONE (10:46)
[2020-10-20] MEDS ORDERED: ZOFRAN INJ 4 MG VIAL ONE (10:46)
[2020-10-20] MEDS ORDERED: DIPRIVAN VIAL ONE (10:46)
[2020-10-20] MEDS ORDERED: NORCURON INJ 10 MG VIAL ONE (10:46)
[2020-10-20] MEDS ORDERED: QUELICIN (OR ANECTINE) ONE (10:46)
[2020-10-20] MEDS ORDERED: NEOSTIGMINE INJ ONE (10:46)
[2020-10-20] MEDS ORDERED: ROBINUL ONE (10:46)
[2020-10-20] MEDS ORDERED: SUPRANE ONE (10:46)
[2020-10-20] MEDS ORDERED: BENADRYL INJ 50 MG VIAL IVP PRN (13:16)
[2020-10-20] MEDS ORDERED: ZOFRAN INJ 4 MG VIAL IVP PRN (13:16)
[2020-10-20] MEDS ORDERED: REGLAN INJ 10 MG VIAL IVP PRN (13:16)
[2020-10-20] MEDS ORDERED: PHENERGAN INJ 25 MG IM PRN (13:16)
[2020-10-20] MEDS: ALBUMIN HUMAN 25%- 100 ML 100 ML IV SCH (16:35)
[2020-10-20] MEDS: MIRALAX POWDER (1 DOSE 17 G) PO SCH (21:01)
[2020-10-20] MEDS: REQUIP PO SCH (21:02)
[2020-10-21] MEDS: DILAUDID INJ IVP PRN ×6 (01:34→23:55)
[2020-10-21] MEDS: FLAGYL IV PREMIX 500 MG BAG 500 MG/100 ML BAG IV SCH ×4 (02:05→21:00)
[2020-10-21] MEDS: NS 1000 ML 1,000 ML IV SCH ×3 (04:26→16:00)
[2020-10-21] MEDS: MERREM VIAL 500 MG in NS 100 ML IV + SPIKE MINIBAG* 100 ML IV SCH ×3 (05:49→21:00)
[2020-10-21] MEDS: TYGACIL 50 MG VIAL 50 MG in NS 100 ML IV 100 ML IV SCH ×2 (08:14→21:00)
[2020-10-21] MEDS: CHECK PATCH XX SCH ×2 (08:14→21:00)
[2020-10-21] MEDS: PriLOSEC PO SCH (08:14)
[2020-10-21] MEDS: COLACE CAP 100 MG PO SCH ×2 (08:15→22:38)
[2020-10-21] MEDS: NEURONTIN CAP 300 MG PO SCH ×4 (08:15→22:39)
[2020-10-21] MEDS: K-DUR TAB 20 MEQ PO SCH ×2 (08:16→22:39)
[2020-10-21] MEDS: PERCOCET TAB 5/325 MG PO PRN (08:17)
--- NOTE | 2020-10-21 08:19 | DR.PROGNOT ---
Hospital Progress Notes - Progress Note for Day of: Progress Note Date: 10/21/20 - Chief Complaint Chief Complaint: c/o incisional pain . good urine out put . WBC 20.6 Hgb 11.3 Lytes normal . temp 97 - Past Medical Family Social History Past Med/Fam/Surg Hx: No changes since H&P Allergies: Allergies tramadol Allergy (Unknown, Verified 10/12/20 20:50) meloxicam [From Mobic] Allergy (Verified 10/12/20 20:50) Penicillins Allergy (Verified 04/26/19 00:59) - Review Of Systems ROS: No change since H&P - Vital Signs Vital Signs: Temperature 97.7 F Pulse Rate [Left] 67 Pulse Rate 67 Respiratory Rate 18 Blood Pressure [Left Arm] 190/92 Blood Pressure [Right Arm] 152/69 Blood Pressure 147/72 O2 Sat by Pulse Oximetry 94 - Physical Exam Oriented: Normal Eyes: Normal Ear: Normal Nose: Normal Respiratory: Normal Cardiovascular: Normal : Normal GI:Auscultation: Decreased (soft , abdomen with moderate tenderness . ) GI: Tenderness: Diffuse (mild distention and tympany ..BS+.. rectal exam revealed large, friable low rectal mass with partial obstruction .) Skin: Normal Musculoskeletal: Normal Psychiatric: Normal Mood Description: Calm Speech Pattern: Clear - Laboratory and Diagnostics Result Diagrams: 10/20/20 05:26 10/20/20 05:26 Labs: 10/12/20 23:25 Blood Blood Culture - Final Escherichia Coli 10/12/20 23:20 Blood Blood Culture - Final Escherichia Coli 10/13/20 06:09 Urine,Clean Catch Urine Culture - Final Escherichia Coli Laboratory WBC 20.6 X10^3/uL (3.6-10.0) H 10/20/20 05:26 RBC 4.87 X10^6/uL (4.7-6.0) 10/20/20 05:26 Hgb 11.3 g/dL (13.5-18.0) L 10/20/20 05:26 Hct 36.1 % (42.0-54.0) L 10/20/20 05:26 MCV 74.0 fL (80.0-100.0) L 10/20/20 05:26 MCH 23.1 pg (27.0-34.0) L 10/20/20 05:26 MCHC 31.2 g/dL (33.0-35.0) L 10/20/20 05:26 RDW 26.4 % (11.6-16.5) H 10/20/20 05:26 Plt Count 428 X10^3/uL (150.0-450.0) 10/20/20 05:26 Plt Count Comment Adequate (ADEQUATE) 10/20/20 05:26 MPV 8.1 fL (7.4-11.0) 10/20/20 05:26 Neut % (Auto) 79.7 % (42.0-75.0) H 10/20/20 05:26 Lymph % (Auto) 9.5 % (21.0-51.0) L 10/20/20 05:26 [place] % (Auto) 9.4 % (0.0-13.0) 10/20/20 05:26 Eos % (Auto) 0.4 % (0.9-2.9) L 10/20/20 05:26 Baso % (Auto) 1.0 % (0.2-1.0) 10/20/20 05:26 Neut # (Auto) 16.4 x10^3/uL (2.2-4.8) H 10/20/20 05:26 Lymph # (Auto) 2.0 X10^3/uL (1.3-2.9) 10/20/20 05:26 [place] # (Auto) 1.9 x10^3/uL (0.3-0.8) H 10/20/20 05:26 Eos # (Auto) 0.1 x10^3/uL (0.0-0.2) 10/20/20 05:26 Baso # (Auto) 0.2 X10^3/uL (0.0-0.1) H 10/20/20 05:26 Absolute Nucleated RBC 0.1 /100WBC 10/20/20 05:26 Total Counted 100 10/19/20 05:55 Neutrophils % (Manual) 84 % (39-76) H 10/19/20 05:55 Band Neutrophils % 2 % (0-10) 10/19/20 05:55 Lymphocytes % (Manual) 10 % (13-43) L 10/19/20 05:55 Monocytes % (Manual) 4 % (4-9) 10/19/20 05:55 Plt Morphology Comment Normal (NORMAL) 10/20/20 05:26 RBC Morphology Abnormal (NORMAL) 10/20/20 05:26 Dimorphic RBCs 1+ 10/20/20 05:26 Hypochromasia 1+ A 10/20/20 05:26 Anisocytosis 3+ A 10/20/20 05:26 Microcytosis Slight A 10/20/20 05:26 Macrocytosis Consultant Education 10/13/20 04:00 Target Cells 1+ A 10/20/20 05:26 Sodium 141 mmol/L (136-145) 10/20/20 05:26 Corrected Sodium TNP 10/20/20 05:26 Potassium 4.0 mmol/L (3.5-5.1) 10/20/20 05:26 Chloride 106 mmol/L (98-107) 10/20/20 05:26 Carbon Dioxide 24.8 mmol/L (21-32) 10/20/20 05:26 BUN 21 mg/dL (7-18) H 10/20/20 05:26 Creatinine 0.92 mg/dL (0.70-1.30) 10/20/20 05:26 Est GFR (MDRD) Af Amer > 60 (>60) 10/20/20 05:26 Est GFR (MDRD) Non-Af > 60 (>60) 10/20/20 05:26 Glucose 89 mg/dL (65-99) 10/20/20 05:26 POC Glucose (mg/dL) 89 mg/dL (65-99) 10/21/20 05:40 Calcium 8.2 mg/dL (8.5-10.1) L 10/20/20 05:26 Corrected Calcium 9.7 mg/dL (8.5-10.1) 10/20/20 05:26 Magnesium 1.7 mg/dL (1.7-2.9) 10/20/20 05:26 Iron < 5 ug/dL (50-175) L 10/13/20 04:00 Transferrin 195 mg/dL (202-364) L 10/13/20 04:00 Ferritin 114 ng/mL (26-388) 10/13/20 04:00 Total Bilirubin 1.80 mg/dL (0.2-1.0) H 10/20/20 05:26 AST 19 Units/L (15-37) 10/20/20 05:26 ALT 19 Units/L (12-78) 10/20/20 05:26 Alkaline Phosphatase 278 Units/L (46-116) H 10/20/20 05:26 Total Protein 5.6 g/dL (6.4-8.2) L 10/20/20 05:26 Albumin 2.1 g/dL (3.4-5.0) L 10/20/20 05:26 Globulin 3.5 g/dL (2.5-4.5) 10/20/20 05:26 Albumin/Globulin Ratio 0.6 Ratio (1.1-2.1) L 10/20/20 05:26 Lipase 46 Units/L (73-393) L 10/12/20 21:30 Carcinoembryonic Ag 13.0 ng/mL (0.0-3.0) H 10/13/20 04:00 Vitamin B12 > 2000 pg/mL (193-986) H 10/13/20 04:00 Folate 4.7 ng/mL (>8.6) L 10/13/20 04:00 Specimen Type Clean catch urine 10/13/20 06:09 Urine Color Yellow (YELLOW) 10/13/20 06:09 Urine Appearance Slightly hazy (CLEAR) 10/13/20 06:09 Urine pH 7.0 (5.0 - 8.0) 10/13/20 06:09 Ur Specific [place] 1.010 (1.000-1.030) 10/13/20 06:09 Urine Protein 3+ (NEGATIVE) 10/13/20 06:09 Urine Glucose (UA) Negative (NEGATIVE) 10/13/20 06:09 Urine Ketones Negative (NEGATIVE) 10/13/20 06:09 Urine Occult Blood 5+ (NEGATIVE) 10/13/20 06:09 Urine Nitrite Negative (NEGATIVE) 10/13/20 06:09 Urine Bilirubin Negative (NEGATIVE) 10/13/20 06:09 Urine Urobilinogen Normal (NORMAL) 10/13/20 06:09 Ur Leukocyte Esterase 3+ (NEGATIVE) 10/13/20 06:09 Urine RBC 3-5 /HPF (0-3) A 10/13/20 06:09 Urine WBC 20-30 /HPF (0-5) A 10/13/20 06:09 Ur Squamous Epith Cells Rare /HPF (NEGATIVE) 10/13/20 06:09 Urine Bacteria Trace /HPF (NEGATIVE) 10/13/20 06:09 Ur Culture Indicated? Yes/culture set up 10/13/20 06:09 Stool Description 5g light brn liquid 10/16/20 17:50 Stl Occult Blood (IFOB) Positive (NEGATIVE) A 10/16/20 17:50 SARS CoV-2 RNA Rapid ADELINA Negative (NEGATIVE) 10/13/20 02:55 Tissue Pathology To follow 10/20/20 12:37 Blood Type O NEGATIVE 10/18/20 09:00 Antibody Screen Negative 10/18/20 09:00 Crossmatch See Detail 10/18/20 09:00 - Assessment and Plan 1: PO laparotomy and end colostomy of the sigmoid . the rectal mass was large and fixed to the pelvic floor .( inoperable ). OOB with binder . future adjuvant Tx the resection . - Problem Patient Problems: Patient Problems Diarrhea (Acute) R19.7 Neutrophilic leukocytosis (Acute) D72.9 Anemia (Acute) D64.9 Renal failure, acute (Acute) N17.9 Dehydration (Acute) E86.0 Symptomatic anemia (Acute) D64.9 Constipation (Acute) K59.00 Bilateral nephrolithiasis (Acute) N20.0
[2020-10-21] MEDS: ALBUMIN HUMAN 25%- 100 ML 100 ML IV SCH (09:47)
[2020-10-21 10:41] LABS: ALANINE AMINOTRANSFERASE 14 Units/L (12-78); ALBUMIN 2.7 g/dL (3.4-5.0); ALKALINE PHOSPHATASE 264 Units/L (46-116); ASPARTATE AMINO TRANSFERASE 21 Units/L (15-37); BLOOD UREA NITROGEN 17 mg/dL (7-18); CALCIUM 8.8 mg/dL (8.5-10.1); CARBON DIOXIDE 25.4 mmol/L (21-32); CHLORIDE 111 mmol/L (98-107); COR CA(FOR HYPOALB) 9.8 mg/dL (8.5-10.1); COR NA(FOR HYPERGLY) 147 mmol/L (136-145); CREATININE 0.89 mg/dL (0.70-1.30); SODIUM 147 mmol/L (136-145); TOTAL PROTEIN 6.4 g/dL (6.4-8.2); eGFR NON BLACK RACES > 60 (>60)
[2020-10-21 10:43] LABS: BASOPHILS # (AUTO) 0.2 X10^3/uL (0.0-0.1); BASOPHILS % (AUTO) 0.5 % (0.2-1.0); EOSINOPHILS % (AUTO) 0.1 % (0.9-2.9); HEMATOCRIT 45.8 % (42.0-54.0); HEMOGLOBIN 14.2 g/dL (13.5-18.0); LYMPHOCYTES # (AUTO) 1.4 X10^3/uL (1.3-2.9); LYMPHOCYTES % (AUTO) 3.8 % (21.0-51.0); MEAN CORPUSCULAR HEMOGLOBIN 23.6 pg (27.0-34.0); MEAN CORPUSCULAR VOLUME 76.1 fL (80.0-100.0); MEAN PLATELET VOLUME 9.1 fL (7.4-11.0); MONOCYTES # (AUTO) 2.7 x10^3/uL (0.3-0.8); MONOCYTES % (AUTO) 7.1 % (0.0-13.0); NEUTROPHILS # (AUTO) 33.7 x10^3/uL (2.2-4.8); NEUTROPHILS % (AUTO) 88.5 % (42.0-75.0); PLATELET COUNT 471 X10^3/uL (150.0-450.0); RED BLOOD COUNT 6.02 X10^6/uL (4.7-6.0); RED CELL DISTRIBUTION WIDTH 27.5 % (11.6-16.5)
[2020-10-21 10:52] LABS: WHITE BLOOD COUNT 38.1 X10^3/uL (3.6-10.0)
[2020-10-21 11:01] LABS: ANISOCYTOSIS 3+; HYPOCHROMASIA 1+; MICROCYTOSIS SLIGHT; PLATELET MORPHOLOGY COMMENT NORMAL (NORMAL)
[2020-10-21] MEDS: LOVENOX INJ 40 MG SYR SC SCH (15:05)
[2020-10-21] MEDS: CYMBALTA PO SCH (15:05)
[2020-10-21] MEDS: MIRALAX POWDER (1 DOSE 17 G) PO SCH (22:39)
[2020-10-21] MEDS: REQUIP PO SCH (22:40)
[2020-10-21] MEDS: DILAUDID INJ ONE (23:54)
[2020-10-22] MEDS: DILAUDID INJ ONE (00:35)
[2020-10-22] MEDS: NS 1000 ML 1,000 ML IV SCH ×4 (01:27→17:58)
[2020-10-22] MEDS: FLAGYL IV PREMIX 500 MG BAG 500 MG/100 ML BAG IV SCH ×4 (03:03→21:51)
[2020-10-22] MEDS: DILAUDID INJ IVP PRN ×4 (04:29→17:58)
[2020-10-22] MEDS: MERREM VIAL 500 MG in NS 100 ML IV + SPIKE MINIBAG* 100 ML IV SCH ×3 (05:30→21:52)
[2020-10-22 07:03] LABS: BASOPHILS # (AUTO) 0.2 X10^3/uL (0.0-0.1); BASOPHILS % (AUTO) 0.7 % (0.2-1.0); EOSINOPHILS % (AUTO) 0.1 % (0.9-2.9); HEMATOCRIT 40.8 % (42.0-54.0); LYMPHOCYTES # (AUTO) 1.9 X10^3/uL (1.3-2.9); LYMPHOCYTES % (AUTO) 5.3 % (21.0-51.0); MEAN CORPUSCULAR HEMOGLOBIN 24.1 pg (27.0-34.0); MEAN CORPUSCULAR HGB CONC 31.9 g/dL (33.0-35.0); MEAN CORPUSCULAR VOLUME 75.5 fL (80.0-100.0); MEAN PLATELET VOLUME 9.3 fL (7.4-11.0); MONOCYTES # (AUTO) 2.7 x10^3/uL (0.3-0.8); MONOCYTES % (AUTO) 7.5 % (0.0-13.0); NEUTROPHILS # (AUTO) 31.3 x10^3/uL (2.2-4.8); NEUTROPHILS % (AUTO) 86.4 % (42.0-75.0); PLATELET COUNT 416 X10^3/uL (150.0-450.0); RED BLOOD COUNT 5.41 X10^6/uL (4.7-6.0); RED CELL DISTRIBUTION WIDTH 27.3 % (11.6-16.5)
[2020-10-22 07:11] LABS: ALANINE AMINOTRANSFERASE 10 Units/L (12-78); ALBUMIN 2.5 g/dL (3.4-5.0); ALKALINE PHOSPHATASE 213 Units/L (46-116); ASPARTATE AMINO TRANSFERASE 23 Units/L (15-37); BLOOD UREA NITROGEN 15 mg/dL (7-18); CALCIUM 8.2 mg/dL (8.5-10.1); CARBON DIOXIDE 25.3 mmol/L (21-32); CHLORIDE 112 mmol/L (98-107); COR CA(FOR HYPOALB) 9.4 mg/dL (8.5-10.1); CREATININE 0.94 mg/dL (0.70-1.30); SODIUM 147 mmol/L (136-145); TOTAL PROTEIN 5.9 g/dL (6.4-8.2); eGFR NON BLACK RACES > 60 (>60)
[2020-10-22 07:34] LABS: WHITE BLOOD COUNT 36.2 X10^3/uL (3.6-10.0)
[2020-10-22 08:33] LABS: PLATELET MORPHOLOGY COMMENT NORMAL (NORMAL)
[2020-10-22 08:34] LABS: ANISOCYTOSIS 3+; HYPOCHROMASIA SLIGHT; MICROCYTOSIS SLIGHT
[2020-10-22] MEDS: PERCOCET TAB 5/325 MG PO PRN ×3 (08:40→21:30)
[2020-10-22] MEDS: TYGACIL 50 MG VIAL 50 MG in NS 100 ML IV 100 ML IV SCH ×2 (08:51→21:51)
[2020-10-22] MEDS: PriLOSEC PO SCH (08:51)
[2020-10-22] MEDS: NEURONTIN CAP 300 MG PO SCH ×4 (08:52→21:51)
[2020-10-22] MEDS: LOVENOX INJ 40 MG SYR SC SCH (08:52)
[2020-10-22] MEDS: COLACE CAP 100 MG PO SCH ×2 (08:52→21:50)
[2020-10-22] MEDS: K-DUR TAB 20 MEQ PO SCH ×2 (08:52→21:51)
[2020-10-22] MEDS: CHECK PATCH XX SCH ×2 (08:53→21:49)
[2020-10-22] MEDS ORDERED: ZOFRAN INJ 4 MG VIAL IVP PRN (09:20)
[2020-10-22] MEDS ORDERED: ZOFRAN INJ 4 MG VIAL ONE (09:20)
[2020-10-22] MEDS: ALBUMIN HUMAN 25%- 100 ML 100 ML IV SCH (09:24)
--- NOTE | 2020-10-22 09:53 | DR.PROGNOT ---
Hospital Progress Notes - Progress Note for Day of: Progress Note Date: 10/22/20 - Chief Complaint Chief Complaint: c/o nausea and abdominal distention .. colostomyis not functioning yet.. WBC 36.2. NA 147. temp 97.7 - Past Medical Family Social History Past Med/Fam/Surg Hx: No changes since H&P Allergies: Allergies tramadol Allergy (Unknown, Verified 10/12/20 20:50) meloxicam [From Mobic] Allergy (Verified 10/12/20 20:50) Penicillins Allergy (Verified 04/26/19 00:59) - Review Of Systems ROS: No change since H&P - Vital Signs Vital Signs: Temperature 97.7 F Pulse Rate [Left] 83 Pulse Rate 67 Respiratory Rate 18 Blood Pressure [Left Arm] 131/68 Blood Pressure [Right Arm] 173/83 Blood Pressure 147/72 O2 Sat by Pulse Oximetry 90 - Physical Exam Oriented: Normal Eyes: Normal Ear: Normal Nose: Normal Respiratory: Normal Cardiovascular: Normal : Normal GI:Auscultation: Decreased (soft , abdomen with moderate tenderness . ) GI: Tenderness: Diffuse (moderate distention . BS hypoactive .. colostomy is not functioning yet .) Skin: Normal Musculoskeletal: Normal Psychiatric: Normal Mood Description: Calm Speech Pattern: Clear, Appropriate - Laboratory and Diagnostics Result Diagrams: 10/22/20 06:24 10/22/20 06:24 Labs: 10/12/20 23:25 Blood Blood Culture - Final Escherichia Coli 10/12/20 23:20 Blood Blood Culture - Final Escherichia Coli 10/13/20 06:09 Urine,Clean Catch Urine Culture - Final Escherichia Coli Laboratory WBC 36.2 X10^3/uL (3.6-10.0) H* 10/22/20 06:24 RBC 5.41 X10^6/uL (4.7-6.0) 10/22/20 06:24 Hgb 13.0 g/dL (13.5-18.0) L 10/22/20 06:24 Hct 40.8 % (42.0-54.0) L 10/22/20 06:24 MCV 75.5 fL (80.0-100.0) L 10/22/20 06:24 MCH 24.1 pg (27.0-34.0) L 10/22/20 06:24 MCHC 31.9 g/dL (33.0-35.0) L 10/22/20 06:24 RDW 27.3 % (11.6-16.5) H 10/22/20 06:24 Plt Count 416 X10^3/uL (150.0-450.0) 10/22/20 06:24 Plt Count Comment Increased (ADEQUATE) 10/22/20 06:24 MPV 9.3 fL (7.4-11.0) 10/22/20 06:24 Neut % (Auto) 86.4 % (42.0-75.0) H 10/22/20 06:24 Lymph % (Auto) 5.3 % (21.0-51.0) L 10/22/20 06:24 [place] % (Auto) 7.5 % (0.0-13.0) 10/22/20 06:24 Eos % (Auto) 0.1 % (0.9-2.9) L 10/22/20 06:24 Baso % (Auto) 0.7 % (0.2-1.0) 10/22/20 06:24 Neut # (Auto) 31.3 x10^3/uL (2.2-4.8) H 10/22/20 06:24 Lymph # (Auto) 1.9 X10^3/uL (1.3-2.9) 10/22/20 06:24 [place] # (Auto) 2.7 x10^3/uL (0.3-0.8) H 10/22/20 06:24 Eos # (Auto) 0.0 x10^3/uL (0.0-0.2) 10/22/20 06:24 Baso # (Auto) 0.2 X10^3/uL (0.0-0.1) H 10/22/20 06:24 Absolute Nucleated RBC 0.1 /100WBC 10/22/20 06:24 Total Counted 100 10/22/20 06:24 Neutrophils % (Manual) 93 % (39-76) H 10/22/20 06:24 Band Neutrophils % 2 % (0-10) 10/19/20 05:55 Lymphocytes % (Manual) 2 % (13-43) L 10/22/20 06:24 Monocytes % (Manual) 5 % (4-9) 10/22/20 06:24 Plt Morphology Comment Normal (NORMAL) 10/22/20 06:24 RBC Morphology Abnormal (NORMAL) 10/22/20 06:24 Dimorphic RBCs Present 10/21/20 09:51 Hypochromasia Slight A 10/22/20 06:24 Anisocytosis 3+ A 10/22/20 06:24 Microcytosis Slight A 10/22/20 06:24 Macrocytosis Smoking Tobacco Packing Machine Hand 10/13/20 04:00 Target Cells 1+ A 10/20/20 05:26 Sodium 147 mmol/L (136-145) H 10/22/20 06:24 Corrected Sodium TNP 10/22/20 06:24 Potassium 3.6 mmol/L (3.5-5.1) 10/22/20 06:24 Chloride 112 mmol/L (98-107) H 10/22/20 06:24 Carbon Dioxide 25.3 mmol/L (21-32) 10/22/20 06:24 BUN 15 mg/dL (7-18) 10/22/20 06:24 Creatinine 0.94 mg/dL (0.70-1.30) 10/22/20 06:24 Est GFR (MDRD) Af Amer > 60 (>60) 10/22/20 06:24 Est GFR (MDRD) Non-Af > 60 (>60) 10/22/20 06:24 Glucose 68 mg/dL (65-99) 10/22/20 06:24 POC Glucose (mg/dL) 89 mg/dL (65-99) 10/21/20 05:40 Calcium 8.2 mg/dL (8.5-10.1) L 10/22/20 06:24 Corrected Calcium 9.4 mg/dL (8.5-10.1) 10/22/20 06:24 Magnesium 1.7 mg/dL (1.7-2.9) 10/20/20 05:26 Iron < 5 ug/dL (50-175) L 10/13/20 04:00 Transferrin 195 mg/dL (202-364) L 10/13/20 04:00 Ferritin 114 ng/mL (26-388) 10/13/20 04:00 Total Bilirubin 1.60 mg/dL (0.2-1.0) H 10/22/20 06:24 AST 23 Units/L (15-37) 10/22/20 06:24 ALT 10 Units/L (12-78) L 10/22/20 06:24 Alkaline Phosphatase 213 Units/L (46-116) H 10/22/20 06:24 Total Protein 5.9 g/dL (6.4-8.2) L 10/22/20 06:24 Albumin 2.5 g/dL (3.4-5.0) L 10/22/20 06:24 Globulin 3.4 g/dL (2.5-4.5) 10/22/20 06:24 Albumin/Globulin Ratio 0.7 Ratio (1.1-2.1) L 10/22/20 06:24 Lipase 46 Units/L (73-393) L 10/12/20 21:30 Carcinoembryonic Ag 13.0 ng/mL (0.0-3.0) H 10/13/20 04:00 Vitamin B12 > 2000 pg/mL (193-986) H 10/13/20 04:00 Folate 4.7 ng/mL (>8.6) L 10/13/20 04:00 Specimen Type Clean catch urine 10/13/20 06:09 Urine Color Yellow (YELLOW) 10/13/20 06:09 Urine Appearance Slightly hazy (CLEAR) 10/13/20 06:09 Urine pH 7.0 (5.0 - 8.0) 10/13/20 06:09 Ur Specific [place] 1.010 (1.000-1.030) 10/13/20 06:09 Urine Protein 3+ (NEGATIVE) 10/13/20 06:09 Urine Glucose (UA) Negative (NEGATIVE) 10/13/20 06:09 Urine Ketones Negative (NEGATIVE) 10/13/20 06:09 Urine Occult Blood 5+ (NEGATIVE) 10/13/20 06:09 Urine Nitrite Negative (NEGATIVE) 10/13/20 06:09 Urine Bilirubin Negative (NEGATIVE) 10/13/20 06:09 Urine Urobilinogen Normal (NORMAL) 10/13/20 06:09 Ur Leukocyte Esterase 3+ (NEGATIVE) 10/13/20 06:09 Urine RBC 3-5 /HPF (0-3) A 10/13/20 06:09 Urine WBC 20-30 /HPF (0-5) A 10/13/20 06:09 Ur Squamous Epith Cells Rare /HPF (NEGATIVE) 10/13/20 06:09 Urine Bacteria Trace /HPF (NEGATIVE) 10/13/20 06:09 Ur Culture Indicated? Yes/culture set up 10/13/20 06:09 Stool Description 5g light brn liquid 10/16/20 17:50 Stl Occult Blood (IFOB) Positive (NEGATIVE) A 10/16/20 17:50 SARS CoV-2 RNA Rapid ADELINA Negative (NEGATIVE) 10/13/20 02:55 Tissue Pathology To follow 10/20/20 12:37 Blood Type O NEGATIVE 10/18/20 09:00 Antibody Screen Negative 10/18/20 09:00 Crossmatch See Detail 10/18/20 09:00 - Assessment and Plan 1: large lower recat ca. S/P PO laparotomy and end colostomy of the sigmoid . same PO care . on clear liquid till distention subsides . D/C villegas . OOB . - Problem Patient Problems: Patient Problems Diarrhea (Acute) R19.7 Neutrophilic leukocytosis (Acute) D72.9 Anemia (Acute) D64.9 Renal failure, acute (Acute) N17.9 Dehydration (Acute) E86.0 Symptomatic anemia (Acute) D64.9 Constipation (Acute) K59.00 Bilateral nephrolithiasis (Acute) N20.0
[2020-10-22] MEDS: CYMBALTA PO SCH (11:25)
[2020-10-22] MEDS: REQUIP PO SCH (21:51)
[2020-10-22] MEDS: MIRALAX POWDER (1 DOSE 17 G) PO SCH (21:51)
[2020-10-22] MEDS: RESTORIL CAP 15 MG PO PRN (21:53)
[2020-10-23] MEDS: DILAUDID INJ IVP PRN (00:06)
[2020-10-23] MEDS: FLAGYL IV PREMIX 500 MG BAG 500 MG/100 ML BAG IV SCH ×4 (03:04→22:08)
[2020-10-23] MEDS: PERCOCET TAB 5/325 MG PO PRN ×4 (03:11→22:10)
[2020-10-23] MEDS: NS 1000 ML 1,000 ML IV SCH ×2 (04:18→06:55)
[2020-10-23] MEDS: MERREM VIAL 500 MG in NS 100 ML IV + SPIKE MINIBAG* 100 ML IV SCH (05:30)
[2020-10-23 06:53] LABS: BASOPHILS # (AUTO) 0.1 X10^3/uL (0.0-0.1); BASOPHILS % (AUTO) 0.3 % (0.2-1.0); EOSINOPHILS # (AUTO) 0.1 x10^3/uL (0.0-0.2); EOSINOPHILS % (AUTO) 0.3 % (0.9-2.9); HEMATOCRIT 38.2 % (42.0-54.0); HEMOGLOBIN 11.7 g/dL (13.5-18.0); LYMPHOCYTES # (AUTO) 2.6 X10^3/uL (1.3-2.9); LYMPHOCYTES % (AUTO) 8.7 % (21.0-51.0); MEAN CORPUSCULAR HEMOGLOBIN 23.5 pg (27.0-34.0); MEAN CORPUSCULAR HGB CONC 30.5 g/dL (33.0-35.0); MEAN PLATELET VOLUME 9.2 fL (7.4-11.0); MONOCYTES % (AUTO) 9.9 % (0.0-13.0); NEUTROPHILS # (AUTO) 24.6 x10^3/uL (2.2-4.8); NEUTROPHILS % (AUTO) 80.8 % (42.0-75.0); PLATELET COUNT 389 X10^3/uL (150.0-450.0); RED BLOOD COUNT 4.97 X10^6/uL (4.7-6.0); RED CELL DISTRIBUTION WIDTH 27.7 % (11.6-16.5)
[2020-10-23 07:08] LABS: ALANINE AMINOTRANSFERASE 12 Units/L (12-78); ALBUMIN 2.6 g/dL (3.4-5.0); ALKALINE PHOSPHATASE 184 Units/L (46-116); ASPARTATE AMINO TRANSFERASE 22 Units/L (15-37); BLOOD UREA NITROGEN 15 mg/dL (7-18); CALCIUM 8.4 mg/dL (8.5-10.1); CARBON DIOXIDE 25.8 mmol/L (21-32); CHLORIDE 113 mmol/L (98-107); COR CA(FOR HYPOALB) 9.5 mg/dL (8.5-10.1); CREATININE 0.86 mg/dL (0.70-1.30); SODIUM 148 mmol/L (136-145); TOTAL PROTEIN 5.9 g/dL (6.4-8.2); eGFR NON BLACK RACES > 60 (>60)
[2020-10-23 07:43] LABS: WHITE BLOOD COUNT 30.5 X10^3/uL (3.6-10.0)
[2020-10-23 07:44] LABS: ANISOCYTOSIS 3+; HYPOCHROMASIA 1+; MICROCYTOSIS 1+; PLATELET MORPHOLOGY COMMENT NORMAL (NORMAL); TARGET CELLS FEW
[2020-10-23] MEDS: COLACE CAP 100 MG PO SCH ×2 (09:00→22:08)
[2020-10-23] MEDS: NEURONTIN CAP 300 MG PO SCH ×4 (09:00→22:09)
[2020-10-23] MEDS: CYMBALTA PO SCH (09:00)
[2020-10-23] MEDS: PriLOSEC PO SCH (09:00)
[2020-10-23] MEDS: LOVENOX INJ 40 MG SYR SC SCH (09:00)
[2020-10-23] MEDS: K-DUR TAB 20 MEQ PO SCH ×2 (09:00→22:09)
[2020-10-23] MEDS: CHECK PATCH XX SCH ×2 (09:16→22:08)
[2020-10-23] MEDS: ALBUMIN HUMAN 25%- 100 ML 100 ML IV SCH (09:46)
[2020-10-23] MEDS: TYGACIL 50 MG VIAL 50 MG in NS 100 ML IV 100 ML IV SCH (10:40)
--- NOTE | 2020-10-23 11:07 | DR.PROGNOT ---
Hospital Progress Notes - Chief Complaint Chief Complaint: c/o nausea and abdominal distention .. colostomyis not functi oning yet.. WBC 30.5. NA 147. K 3.3 .. BUN, Creat normal . temp 97.7 - Past Medical Family Social History Past Med/Fam/Surg Hx: No changes since H&P Allergies: Allergies tramadol Allergy (Unknown, Verified 10/12/20 20:50) meloxicam [From Mobic] Allergy (Verified 10/12/20 20:50) Penicillins Allergy (Verified 04/26/19 00:59) - Review Of Systems ROS: No change since H&P - Vital Signs Vital Signs: Temperature 97.9 F Pulse Rate [Left] 93 Pulse Rate 67 Respiratory Rate 18 Blood Pressure [Left Arm] 149/85 Blood Pressure [Right Arm] 173/83 Blood Pressure 147/72 O2 Sat by Pulse Oximetry 90 - Physical Exam Oriented: Normal Eyes: Normal Ear: Normal Nose: Normal Respiratory: Normal Cardiovascular: Normal : Normal GI:Auscultation: Decreased (soft , abdomen with moderate tenderness . ) GI: Tenderness: Diffuse (moderate distention . BS hypoactive .. colostomy is not functioning yet .) Skin: Normal Musculoskeletal: Normal Psychiatric: Normal Mood Description: Calm Speech Pattern: Clear, Appropriate - Laboratory and Diagnostics Result Diagrams: 10/23/20 05:15 10/23/20 05:15 Labs: 10/12/20 23:25 Blood Blood Culture - Final Escherichia Coli 10/12/20 23:20 Blood Blood Culture - Final Escherichia Coli 10/13/20 06:09 Urine,Clean Catch Urine Culture - Final Escherichia Coli Laboratory WBC 30.5 X10^3/uL (3.6-10.0) H* 10/23/20 05:15 RBC 4.97 X10^6/uL (4.7-6.0) 10/23/20 05:15 Hgb 11.7 g/dL (13.5-18.0) L 10/23/20 05:15 Hct 38.2 % (42.0-54.0) L 10/23/20 05:15 MCV 77.0 fL (80.0-100.0) L 10/23/20 05:15 MCH 23.5 pg (27.0-34.0) L 10/23/20 05:15 MCHC 30.5 g/dL (33.0-35.0) L 10/23/20 05:15 RDW 27.7 % (11.6-16.5) H 10/23/20 05:15 Plt Count 389 X10^3/uL (150.0-450.0) 10/23/20 05:15 Plt Count Comment Adequate (ADEQUATE) 10/23/20 05:15 MPV 9.2 fL (7.4-11.0) 10/23/20 05:15 Neut % (Auto) 80.8 % (42.0-75.0) H 10/23/20 05:15 Lymph % (Auto) 8.7 % (21.0-51.0) L 10/23/20 05:15 [place] % (Auto) 9.9 % (0.0-13.0) 10/23/20 05:15 Eos % (Auto) 0.3 % (0.9-2.9) L 10/23/20 05:15 Baso % (Auto) 0.3 % (0.2-1.0) 10/23/20 05:15 Neut # (Auto) 24.6 x10^3/uL (2.2-4.8) H 10/23/20 05:15 Lymph # (Auto) 2.6 X10^3/uL (1.3-2.9) 10/23/20 05:15 [place] # (Auto) 3.0 x10^3/uL (0.3-0.8) H 10/23/20 05:15 Eos # (Auto) 0.1 x10^3/uL (0.0-0.2) 10/23/20 05:15 Baso # (Auto) 0.1 X10^3/uL (0.0-0.1) 10/23/20 05:15 Absolute Nucleated RBC 0.1 /100WBC 10/23/20 05:15 Total Counted 100 10/23/20 05:15 Neutrophils % (Manual) 85 % (39-76) H 10/23/20 05:15 Band Neutrophils % 2 % (0-10) 10/19/20 05:55 Lymphocytes % (Manual) 5 % (13-43) L 10/23/20 05:15 Monocytes % (Manual) 9 % (4-9) 10/23/20 05:15 Eosinophils % (Manual) 1 % (0-6) 10/23/20 05:15 Plt Morphology Comment Normal (NORMAL) 10/23/20 05:15 RBC Morphology Abnormal (NORMAL) 10/23/20 05:15 Dimorphic RBCs Present 10/21/20 09:51 Hypochromasia 1+ A 10/23/20 05:15 Anisocytosis 3+ A 10/23/20 05:15 Microcytosis 1+ A 10/23/20 05:15 Macrocytosis Ic [employer]er Standard Cells 10/13/20 04:00 Target Cells Few 10/23/20 05:15 Sodium 148 mmol/L (136-145) H 10/23/20 05:15 Corrected Sodium TNP 10/23/20 05:15 Potassium 3.3 mmol/L (3.5-5.1) L 10/23/20 05:15 Chloride 113 mmol/L (98-107) H 10/23/20 05:15 Carbon Dioxide 25.8 mmol/L (21-32) 10/23/20 05:15 BUN 15 mg/dL (7-18) 10/23/20 05:15 Creatinine 0.86 mg/dL (0.70-1.30) 10/23/20 05:15 Est GFR (MDRD) Af Amer > 60 (>60) 10/23/20 05:15 Est GFR (MDRD) Non-Af > 60 (>60) 10/23/20 05:15 Glucose 50 mg/dL (65-99) L 10/23/20 05:15 POC Glucose (mg/dL) 89 mg/dL (65-99) 10/21/20 05:40 Calcium 8.4 mg/dL (8.5-10.1) L 10/23/20 05:15 Corrected Calcium 9.5 mg/dL (8.5-10.1) 10/23/20 05:15 Magnesium 1.7 mg/dL (1.7-2.9) 10/20/20 05:26 Iron < 5 ug/dL (50-175) L 10/13/20 04:00 Transferrin 195 mg/dL (202-364) L 10/13/20 04:00 Ferritin 114 ng/mL (26-388) 10/13/20 04:00 Total Bilirubin 1.20 mg/dL (0.2-1.0) H 10/23/20 05:15 AST 22 Units/L (15-37) 10/23/20 05:15 ALT 12 Units/L (12-78) 10/23/20 05:15 Alkaline Phosphatase 184 Units/L (46-116) H 10/23/20 05:15 Total Protein 5.9 g/dL (6.4-8.2) L 10/23/20 05:15 Albumin 2.6 g/dL (3.4-5.0) L 10/23/20 05:15 Globulin 3.3 g/dL (2.5-4.5) 10/23/20 05:15 Albumin/Globulin Ratio 0.8 Ratio (1.1-2.1) L 10/23/20 05:15 Lipase 46 Units/L (73-393) L 10/12/20 21:30 Carcinoembryonic Ag 13.0 ng/mL (0.0-3.0) H 10/13/20 04:00 Vitamin B12 > 2000 pg/mL (193-986) H 10/13/20 04:00 Folate 4.7 ng/mL (>8.6) L 10/13/20 04:00 Specimen Type Clean catch urine 10/13/20 06:09 Urine Color Yellow (YELLOW) 10/13/20 06:09 Urine Appearance Slightly hazy (CLEAR) 10/13/20 06:09 Urine pH 7.0 (5.0 - 8.0) 10/13/20 06:09 Ur Specific [place] 1.010 (1.000-1.030) 10/13/20 06:09 Urine Protein 3+ (NEGATIVE) 10/13/20 06:09 Urine Glucose (UA) Negative (NEGATIVE) 10/13/20 06:09 Urine Ketones Negative (NEGATIVE) 10/13/20 06:09 Urine Occult Blood 5+ (NEGATIVE) 10/13/20 06:09 Urine Nitrite Negative (NEGATIVE) 10/13/20 06:09 Urine Bilirubin Negative (NEGATIVE) 10/13/20 06:09 Urine Urobilinogen Normal (NORMAL) 10/13/20 06:09 Ur Leukocyte Esterase 3+ (NEGATIVE) 10/13/20 06:09 Urine RBC 3-5 /HPF (0-3) A 10/13/20 06:09 Urine WBC 20-30 /HPF (0-5) A 10/13/20 06:09 Ur Squamous Epith Cells Rare /HPF (NEGATIVE) 10/13/20 06:09 Urine Bacteria Trace /HPF (NEGATIVE) 10/13/20 06:09 Ur Culture Indicated? Yes/culture set up 10/13/20 06:09 Stool Description 5g light brn liquid 10/16/20 17:50 Stl Occult Blood (IFOB) Positive (NEGATIVE) A 10/16/20 17:50 SARS CoV-2 RNA Rapid ADELINA Negative (NEGATIVE) 10/13/20 02:55 Tissue Pathology To follow 10/20/20 12:37 Blood Type O NEGATIVE 10/18/20 09:00 Antibody Screen Negative 10/18/20 09:00 Crossmatch See Detail 10/18/20 09:00 - Assessment and Plan 1: large lower recat ca. S/P PO laparotomy and end colostomy of the sigmoid . same PO care . on full liquid. OOB . colostomy education and training .. - Problem Patient Problems: Patient Problems Diarrhea (Acute) R19.7 Neutrophilic leukocytosis (Acute) D72.9 Anemia (Acute) D64.9 Renal failure, acute (Acute) N17.9 Dehydration (Acute) E86.0 Symptomatic anemia (Acute) D64.9 Constipation (Acute) K59.00 Bilateral nephrolithiasis (Acute) N20.0
[2020-10-23] MEDS: LEVAQUIN PREMIX IV 750 MG 750 MG/150 ML BAG IV SCH (11:50)
[2020-10-23] MEDS ORDERED: LASIX IVP ONE ×2 (12:08→12:09)
--- NOTE | 2020-10-23 21:28 | RAD ---
HISTORYABD PAIN AND DISTENTION, S/P PO laparotomy and end colostomy of the sigmoid COPD SX: GB, ORTHOSTUDYKUBCOMPARISONJanuary 2019FINDINGSEvaluation of the abdomen demonstrates a nonspecific small enlarged bowel distention probably postoperative in nature given the overlying surgical clips. This could be due to a postoperative ileus although continued follow-up is recommended.. No pathological soft tissue mass or calcification can be observed. The bony structures are grossly intact.IMPRESSIONNonspecific bowel gas pattern as above which may be due to a postoperative ileusElectronically signed by: RAVEN HUNTER (Oct 23, 2020 21:26:14)
[2020-10-23] MEDS: MIRALAX POWDER (1 DOSE 17 G) PO SCH (22:09)
[2020-10-23] MEDS: REQUIP PO SCH (22:09)
[2020-10-23] MEDS: RESTORIL CAP 15 MG PO PRN (22:10)
[2020-10-24] MEDS ORDERED: PERCOCET TAB 5/325 MG ONE (03:55)
[2020-10-24] MEDS: PERCOCET TAB 5/325 MG PO PRN ×2 (04:01→10:50)
[2020-10-24] MEDS: FLAGYL IV PREMIX 500 MG BAG 500 MG/100 ML BAG IV SCH ×2 (04:01→09:59)
[2020-10-24 06:25] LABS: ALANINE AMINOTRANSFERASE 8 Units/L (12-78); ALBUMIN 2.6 g/dL (3.4-5.0); ALKALINE PHOSPHATASE 173 Units/L (46-116); ASPARTATE AMINO TRANSFERASE 22 Units/L (15-37); BASOPHILS # (AUTO) 0.1 X10^3/uL (0.0-0.1); BASOPHILS % (AUTO) 0.4 % (0.2-1.0); BLOOD UREA NITROGEN 12 mg/dL (7-18); CALCIUM 8.3 mg/dL (8.5-10.1); CARBON DIOXIDE 28.5 mmol/L (21-32); CHLORIDE 109 mmol/L (98-107); COR CA(FOR HYPOALB) 9.4 mg/dL (8.5-10.1); CREATININE 0.85 mg/dL (0.70-1.30); EOSINOPHILS # (AUTO) 0.1 x10^3/uL (0.0-0.2); EOSINOPHILS % (AUTO) 0.5 % (0.9-2.9); HEMATOCRIT 35.2 % (42.0-54.0); LYMPHOCYTES # (AUTO) 2.2 X10^3/uL (1.3-2.9); LYMPHOCYTES % (AUTO) 10.7 % (21.0-51.0); MEAN CORPUSCULAR HEMOGLOBIN 23.7 pg (27.0-34.0); MEAN CORPUSCULAR HGB CONC 31.4 g/dL (33.0-35.0); MEAN CORPUSCULAR VOLUME 75.6 fL (80.0-100.0); MEAN PLATELET VOLUME 9.3 fL (7.4-11.0); MONOCYTES % (AUTO) 9.8 % (0.0-13.0); NEUTROPHILS # (AUTO) 15.9 x10^3/uL (2.2-4.8); NEUTROPHILS % (AUTO) 78.6 % (42.0-75.0); PLATELET COUNT 330 X10^3/uL (150.0-450.0); RED BLOOD COUNT 4.65 X10^6/uL (4.7-6.0); RED CELL DISTRIBUTION WIDTH 27.6 % (11.6-16.5); SODIUM 146 mmol/L (136-145); TOTAL PROTEIN 5.6 g/dL (6.4-8.2); WHITE BLOOD COUNT 20.2 X10^3/uL (3.6-10.0); eGFR NON BLACK RACES > 60 (>60)
[2020-10-24 06:57] LABS: PLATELET MORPHOLOGY COMMENT NORMAL (NORMAL)
[2020-10-24 06:58] LABS: ANISOCYTOSIS 2+; HYPOCHROMASIA SLIGHT; TARGET CELLS FEW
[2020-10-24] MEDS: ALBUMIN HUMAN 25%- 100 ML 100 ML IV SCH (09:06)
[2020-10-24] MEDS: K-DUR TAB 20 MEQ PO SCH (09:27)
[2020-10-24] MEDS: COLACE CAP 100 MG PO SCH (09:27)
[2020-10-24] MEDS: CHECK PATCH XX SCH (09:28)
[2020-10-24] MEDS: PriLOSEC PO SCH (09:28)
[2020-10-24] MEDS: NEURONTIN CAP 300 MG PO SCH ×2 (09:29→14:23)
[2020-10-24] MEDS: LOVENOX INJ 40 MG SYR SC SCH (09:31)
[2020-10-24] MEDS: CYMBALTA PO SCH (09:59)
[2020-10-24] MEDS: LEVAQUIN PREMIX IV 750 MG 750 MG/150 ML BAG IV SCH (11:16)
[2020-10-24 14:27] VITALS: BP 136/74
== END 2020-10-24 14:10 | disposition home health service (06) | DRG 330 ==
LOC: OBS 20:23 → ER 20:23 → OBS 10-13 04:28
PROVIDERS: ADMIT Obstetrics & Gynecology Obstetrics; ATTEND Obstetrics & Gynecology Obstetrics
DX: N19 Unspecified kidney failure; K64.8 Other hemorrhoids; G89.18 Other acute postprocedural pain; N20.0 Calculus of kidney; E86.0 Dehydration; K56.609 Unspecified intestinal obstruction, unspecified as to partial versus complete obstruction; M54.89 Other dorsalgia; N10 Acute pyelonephritis; Z20.822 Contact with and (suspected) exposure to COVID-19; N39.0 Urinary tract infection, site not specified; R10.9 Unspecified abdominal pain; C20 Malignant neoplasm of rectum; I87.2 Venous insufficiency (chronic) (peripheral); K62.89 Other specified diseases of anus and rectum; R26.81 Unsteadiness on feet; B96.20 Unspecified Escherichia coli [E. coli] as the cause of diseases classified elsewhere; D64.89 Other specified anemias; R94.31 Abnormal electrocardiogram [ECG] [EKG]

== ENCOUNTER 2020-11-16 20:02 | Inpatient (IN) ==
[2020-11-16] MEDS ORDERED: NARCAN INJ IVP ONE (20:21)
[2020-11-16 21:08] LABS: BASOPHILS # (AUTO) 0.2 X10^3/uL (0.0-0.1); BASOPHILS % (AUTO) 0.7 % (0.2-1.0); EOSINOPHILS # (AUTO) 0.1 x10^3/uL (0.0-0.2); EOSINOPHILS % (AUTO) 0.3 % (0.9-2.9); HEMATOCRIT 26.5 % (42.0-54.0); HEMOGLOBIN 8.6 g/dL (13.5-18.0); LYMPHOCYTES # (AUTO) 1.1 X10^3/uL (1.3-2.9); MEAN CORPUSCULAR HEMOGLOBIN 24.3 pg (27.0-34.0); MEAN CORPUSCULAR HGB CONC 32.3 g/dL (33.0-35.0); MEAN CORPUSCULAR VOLUME 75.1 fL (80.0-100.0); MONOCYTES # (AUTO) 1.4 x10^3/uL (0.3-0.8); MONOCYTES % (AUTO) 6.3 % (0.0-13.0); NEUTROPHILS # (AUTO) 19.6 x10^3/uL (2.2-4.8); NEUTROPHILS % (AUTO) 87.7 % (42.0-75.0); PLATELET COUNT 629 X10^3/uL (150.0-450.0); RED BLOOD COUNT 3.53 X10^6/uL (4.7-6.0); RED CELL DISTRIBUTION WIDTH 26.3 % (11.6-16.5); WHITE BLOOD COUNT 22.4 X10^3/uL (3.6-10.0)
[2020-11-16 21:16] LABS: AMMONIA < 10 umol/L (11-32)
--- NOTE | 2020-11-16 21:27 | CT ---
HISTORYEMS WAS CALLED OUT TO PT DUE TO PT WAS UNRESPONSIVE.STUDYBRAIN W/O CONCOMPARISONNone available.TECHNIQUEAxial non-contrast images of the head with coronal and sagittal reformats.Radiation dose: 1222.60 mGy-cm total DLPFINDINGSNo abnormal areas of acute attenuation in the brain parenchyma.Vazquez-white differentiation remains intact.No intracranial, extra-axial, fluid collection.No hemorrhage.No mass, mass effect or midline shift.No ventriculomegaly.No acute fracture.Sinuses are well aerated.Mastoid air cells are well aerated.Globes and intraorbital contents are unremarkable.IMPRESSIONNo acute intracranial abnormality identified.Electronically signed by: Harrison Salamanca (Nov 16, 2020 21:25:37)
[2020-11-16 21:28] LABS: ALANINE AMINOTRANSFERASE 150 Units/L (12-78); ALBUMIN 2.4 g/dL (3.4-5.0); ALKALINE PHOSPHATASE 481 Units/L (46-116); ASPARTATE AMINO TRANSFERASE 165 Units/L (15-37); BLOOD UREA NITROGEN 23 mg/dL (7-18); CALCIUM 9.7 mg/dL (8.5-10.1); CARBON DIOXIDE 26.1 mmol/L (21-32); CHLORIDE 93 mmol/L (98-107); CKMB % 3.5 % (<4); CREATINE KINASE 29 Units/L (39-308); CREATINE KINASE MB < 1.0 ng/mL (0-4.0); CREATININE 1.87 mg/dL (0.70-1.30); TROPONIN I < 0.02 ng/mL (0-1.5); eGFR NON BLACK RACES 39 (>60)
[2020-11-16 21:29] LABS: PLATELET MORPHOLOGY COMMENT NORMAL (NORMAL)
[2020-11-16 21:30] LABS: ANISOCYTOSIS 3+
--- NOTE | 2020-11-16 21:36 | CT ---
HISTORYEMS WAS CALLED OUT TO PT DUE TO PT WAS UNRESPONSIVE.STUDYABDOMEN/PELVIS W/O CONCOMPARISONNoneTECHNIQUENon-contrasted axial CT images of the abdomen and pelvis were obtained and reformatted into coronal and sagittal planes for further evaluation.Radiation dose: 905.80 mGy-cm total DLPFINDINGSLung bases are clear.Stomach appears normal.Solid visceral organs of the upper abdomen are unremarkable.Status post cholecystectomy.Atherosclerotic changes to the abdominal aorta and iliac vessels without aneurysmNonobstructing 2 mm bilateral nephroliths.Mild bilateral hydronephrosis and hydroureter.Unremarkable appearance of the urinary bladder.José Luis pouch in place containing high attenuation blood products measuring 8 x 9.3 cm on axial image 8.Ostomy in the left anterior abdominal wall.Moderate stool burden in the colon.Unremarkable appearance of the small bowel.Reproductive structures are unremarkable.No evidence of acute appendicitis.No pneumoperitoneum.No significant fluid collection.No adenopathy.No acute osseous abnormality.Mild multilevel degenerative disc disease without vertebral body height loss.IMPRESSION1. Acute blood products expanding the José Luis pouch resulting in bilateral hydronephrosis and hydroureter.2. Bilateral nonobstructing 2 mm nephroliths.Electronically signed by: Harrison Salamanca (Nov 16, 2020 21:33:37)
--- NOTE | 2020-11-16 21:38 | RAD ---
CHEST, 1 VIEWHISTORY: UnresponsiveStudy: Single view of the chest.Comparison:NoneFindings:The cardiomediastinal silhouette is normal.No focal consolidations, pleural effusions or pneumothorax. Osseous structures demonstrate no acute abnormality.IMPRESSION:1. No acute cardiopulmonary process.Electronically signed by: ULISSES LORENZO (Nov 16, 2020 21:36:14)
[2020-11-16 21:39] LABS: COR NA(FOR HYPERGLY) 129 mmol/L (136-145); SODIUM 128 mmol/L (136-145)
--- NOTE | 2020-11-16 22:06 | DR.AMS ---
HPI Time Seen Time Seen by Provider: 11/16/20 22:02 PCP Primary Care Physician: UNKNOWN HPI Comment HPI Comment: Brought in as below; now awake after narcan but does not respond to questions; daughter reports he's had problems urinating this past day or so and has not been eating or drinking much; he had surgery about a month ago and saw Dr Hernández earlier today; he has not had n/v/d/f/c. Complaint Chief Complaint:: EMS WAS CALLED OUT TO PT DUE TO PT WAS UNRESPONSIVE. Source History Provided: EMS Mode of Arrival Mode of Arrival: EMS Timing Onset of Chief Complaint: 11/16/20 PMH PMH Past Medical History: Yes Past Medical History Comment: COLON CANCER Past Surgical History: Yes (COLON SURGERY) Family History History of Family Medical Conditions: No (UNKNOWN) Social History Do you use any recreational Drugs:: No (UNKNOWN) Lives With: Family Lives Where: Home Infectious screening In the last 2 months have you had wt loss of >10#?: NO Have you had fever, night sweats or hemotysis?: No Have you traveled outside the country in the last 6 months?: No Isolation: Standard ROS Review of Systems Unable to Obtain Due To: Altered mental status (opens eyes to name, makes eye contact and closes them back but does not speak) PE Vitals Vital Signs: Temp Pulse Pulse Resp BP BP Pulse Ox 11/16/20 23:28 77 16 122/59 100 11/16/20 21:37 84 16 127/57 98 11/16/20 20:10 97.6 F 85 19 103/51 96 11/16/20 20:09 87 20 127/57 98 General Limitations: Altered Mental Status General Appearance: In No Apparent Distress (opens eyes to name, moves all extremities, turns to side ) Head Head Exam: Normal Inspection Eyes Eye exam: Normal Appearance ENT ENT Exam: Normal Exam External Ear Exam: Normal External Inspection Nose Exam: Normal Nose Exam Mouth Exam: Normal Inspection Throat Exam: Normal Inspection Neck Neck Exam: Normal Inspection Chest Chest Inspection: Normal Inspection Respiratory Respiratory Exam: Normal Lung Sounds Bilat Cardiovascular Cardiovascular Exam: Regular Rate and Normal Rhythm Abdominal Exam Abdominal Exam: Normal Inspection, Normal Bowel Sounds and Soft Extremities Extremities Exam: Normal Inspection Back Back Exam: Normal Inspection Skin Skin Exam: Warm, Dry, Intact and Normal Color MDM Differential Diagnosis Metabolic: Dehydration, Hypernatremia and Hyponatremia Structural: CVA Toxicologic: Drug Overdose Infectious: Sepsis and UTI COURSE Reevaluation 1st: Unchanged ROR Labs Reviewed Laboratory Results Reviewed?: Yes Result Diagrams: 11/16/20 20:55 11/16/20 20:55 Laboratory: WBC 22.4 X10^3/uL (3.6-10.0) H 11/16/20 20:55 RBC 3.53 X10^6/uL (4.7-6.0) L 11/16/20 20:55 Hgb 8.6 g/dL (13.5-18.0) L 11/16/20 20:55 Hct 26.5 % (42.0-54.0) L 11/16/20 20:55 MCV 75.1 fL (80.0-100.0) L 11/16/20 20:55 MCH 24.3 pg (27.0-34.0) L 11/16/20 20:55 MCHC 32.3 g/dL (33.0-35.0) L 11/16/20 20:55 RDW 26.3 % (11.6-16.5) H 11/16/20 20:55 Plt Count 629 X10^3/uL (150.0-450.0) H 11/16/20 20:55 Plt Count Comment Increased (ADEQUATE) 11/16/20 20:55 MPV 7.0 fL (7.4-11.0) L 11/16/20 20:55 Neut % (Auto) 87.7 % (42.0-75.0) H 11/16/20 20:55 Lymph % (Auto) 5.0 % (21.0-51.0) L 11/16/20 20:55 [place] % (Auto) 6.3 % (0.0-13.0) 11/16/20 20:55 Eos % (Auto) 0.3 % (0.9-2.9) L 11/16/20 20:55 Baso % (Auto) 0.7 % (0.2-1.0) 11/16/20 20:55 Neut # (Auto) 19.6 x10^3/uL (2.2-4.8) H 11/16/20 20:55 Lymph # (Auto) 1.1 X10^3/uL (1.3-2.9) L 11/16/20 20:55 [place] # (Auto) 1.4 x10^3/uL (0.3-0.8) H 11/16/20 20:55 Eos # (Auto) 0.1 x10^3/uL (0.0-0.2) 11/16/20 20:55 Baso # (Auto) 0.2 X10^3/uL (0.0-0.1) H 11/16/20 20:55 Absolute Nucleated RBC 0.0 /100WBC 11/16/20 20:55 Total Counted 100 11/16/20 20:55 Neutrophils % (Manual) 89 % (39-76) H 11/16/20 20:55 Lymphocytes % (Manual) 9 % (13-43) L 11/16/20 20:55 Monocytes % (Manual) 2 % (4-9) L 11/16/20 20:55 Plt Morphology Comment Normal (NORMAL) 11/16/20 20:55 RBC Morphology Normal (NORMAL) 11/16/20 20:55 Anisocytosis 3+ A 11/16/20 20:55 Sodium 128 mmol/L (136-145) L 11/16/20 20:55 Corrected Sodium 129 mmol/L (136-145) L 11/16/20 20:55 Potassium 4.1 mmol/L (3.5-5.1) 11/16/20 20:55 Chloride 93 mmol/L (98-107) L 11/16/20 20:55 Carbon Dioxide 26.1 mmol/L (21-32) 11/16/20 20:55 BUN 23 mg/dL (7-18) H 11/16/20 20:55 Creatinine 1.87 mg/dL (0.70-1.30) H 11/16/20 20:55 Est GFR (MDRD) Af Amer 47 (>60) L 11/16/20 20:55 Est GFR (MDRD) Non-Af 39 (>60) L 11/16/20 20:55 Glucose 134 mg/dL (65-99) H 11/16/20 20:55 Calcium 9.7 mg/dL (8.5-10.1) 11/16/20 20:55 Corrected Calcium 11.0 mg/dL (8.5-10.1) H 11/16/20 20:55 Total Bilirubin 0.50 mg/dL (0.2-1.0) 11/16/20 20:55 AST 165 Units/L (15-37) H 11/16/20 20:55 ALT 150 Units/L (12-78) H 11/16/20 20:55 Alkaline Phosphatase 481 Units/L (46-116) H 11/16/20 20:55 Ammonia < 10 umol/L (11-32) L 11/16/20 20:55 Creatine Kinase 29 Units/L (39-308) L 11/16/20 20:55 CK-MB (CK-2) < 1.0 ng/mL (0-4.0) 11/16/20 20:55 CK/CKMB % Calc 3.5 % (<4) 11/16/20 20:55 Troponin I < 0.02 ng/mL (0-1.5) 11/16/20 20:55 Total Protein 8.0 g/dL (6.4-8.2) 11/16/20 20:55 Albumin 2.4 g/dL (3.4-5.0) L 11/16/20 20:55 Globulin 5.6 g/dL (2.5-4.5) H 11/16/20 20:55 Albumin/Globulin Ratio 0.4 Ratio (1.1-2.1) L 11/16/20 20:55 Specimen Type Catherized urine 11/16/20 23:28 Urine Color Yellow (YELLOW) 11/16/20 23:28 Urine Appearance Cloudy (CLEAR) 11/16/20 23:28 Urine pH 5.0 (5.0 - 8.0) 11/16/20 23:28 Ur Specific [place] 1.015 (1.000-1.030) 11/16/20 23:28 Urine Protein 3+ (NEGATIVE) 11/16/20 23: Urine Glucose (UA) Negative (NEGATIVE) 11/16/20 23: Urine Ketones Negative (NEGATIVE) 11/16/20 23: Urine Occult Blood 4+ (NEGATIVE) 11/16/20 23: Urine Nitrite Negative (NEGATIVE) 11/16/20 23: Urine Bilirubin Negative (NEGATIVE) 11/16/20 23: Urine Urobilinogen Normal (NORMAL) 11/16/20 23:28 Ur Leukocyte Esterase 3+ (NEGATIVE) 11/16/20 23:28 Urine RBC None seen /HPF (0-3) 11/16/20 23:28 Urine WBC Tntc /HPF (0-5) A 11/16/20 23:28 Ur Squamous Epith Cells Negative /HPF (NEGATIVE) 11/16/20 23:28 Urine Bacteria 3+ /HPF (NEGATIVE) 11/16/20 23:28 Ur Culture Indicated? Yes/culture set up 11/16/20 23:28 Urine Opiates Screen Positive (NEG=<300) 11/16/20 23: Urine Methadone Screen Negative (NEG=<300) 11/16/20 23: Ur Barbiturates Screen Negative (NEG=<200) 11/16/20 23: Ur Phencyclidine Scrn Negative (NEG=<25) 11/16/20 23: Ur Amphetamines Screen Negative (NEG=<1000) 11/16/20 23: U Benzodiazepines Scrn Negative (NEG=<200) 11/16/20 23: Urine Cocaine Screen Negative (NEG=<300) 11/16/20 23:28 U Marijuana (THC) Screen Negative (NEG=<50) 11/16/20 23:28 SARS CoV-2 RNA Rapid ADELINA Negative (NEGATIVE) 11/16/20 23:37 XRAY XRAY Interpreted by: Radiologist X-ray Results: ct abd: 1. Acute blood products expanding the José Luis pouch resulting in bilateral hydronephrosis and hydroureter. 2. Bilateral nonobstructing 2 mm nephroliths. cxr: Unremarkable exam. Opioid Opioid Risk Tool Total: 0 Total Score Risk Category: Low Risk Copyright: Noe MALONEY predicting aberrant behaviors Diagnosis Discharge Problem: Acute hyponatremia, Acquired hydroureter Hydronephrosis Qualifiers: Hydronephrosis type: other Qualified Code(s): N13.39 - Other hydronephrosis Urinary tract infection Qualifiers: Urinary tract infection type: acute cystitis Hematuria presence: with hematuria Qualified Code(s): N30.01 - Acute cystitis with hematuria Instructions Instructions: Urinary Tract Infection, Adult, [id number]
[2020-11-16] MEDS ORDERED: ZOSYN VIAL 3.375 GRAMS 3.375 G in NS 100 ML IV + SPIKE MINIBAG* 100 ML IV ONE ×2 (22:08→22:26)
[2020-11-16] MEDS ORDERED: NS 1000 ML 1,000 ML ONE (22:16)
[2020-11-16] MEDS ORDERED: NS 100 ML IV + SPIKE MINIBAG* 100 ML IV ONE (22:16)
[2020-11-16] MEDS ORDERED: ZOSYN VIAL 3.375 GRAMS IV ONE (22:16)
[2020-11-16] MEDS: NS 1000 ML 1,000 ML IV SCH ×2 (22:18→22:19)
[2020-11-16] MEDS ORDERED: ZOFRAN INJ 4 MG VIAL ONE (23:09)
[2020-11-16] MEDS ORDERED: ZOFRAN INJ 4 MG VIAL IVP ONE (23:09)
[2020-11-16 23:37] LABS: BILIRUBIN,URINE NEGATIVE (NEGATIVE); BLOOD/HEMOGLOBIN,URINE 4+ (NEGATIVE); GLUCOSE, URINE NEGATIVE (NEGATIVE); KETONES,URINE NEGATIVE (NEGATIVE); LEUKOCYTE ESTERASE ,URINE 3+ (NEGATIVE); NITRITES,URINE NEGATIVE (NEGATIVE); PROTEIN,URINE 3+ (NEGATIVE); UROBILINOGEN,URINE NORMAL (NORMAL)
[2020-11-16] MEDS ORDERED: NS 1000 ML 1,000 ML IV SCH (23:45)
[2020-11-16 23:46] LABS: APPEARANCE,URINE CLOUDY (CLEAR); BACTERIA,URINE 3+ /HPF (NEGATIVE); COLOR,URINE YELLOW (YELLOW); RBC,URINE NONE SEEN /HPF (0-3); SQUAMOUS EPITHELIAL CELL,UR NEGATIVE /HPF (NEGATIVE)
[2020-11-17] MEDS: ZOSYN VIAL 2.25 GRAMS 2.25 G in NS 100 ML IV + SPIKE MINIBAG* 100 ML IV SCH ×2 (02:09→05:26)
[2020-11-17 04:23] VITALS: BMI 19.5
[2020-11-17] MEDS ORDERED: ATIVAN INJ 2 MG VIAL IVP ONE (04:35)
[2020-11-17] MEDS ORDERED: ATIVAN INJ 2 MG VIAL ONE (04:37)
[2020-11-17 05:15] LABS: BASOPHILS % (AUTO) 0.2 % (0.2-1.0); EOSINOPHILS % (AUTO) 0.1 % (0.9-2.9); HEMATOCRIT 25.7 % (42.0-54.0); HEMOGLOBIN 8.3 g/dL (13.5-18.0); LYMPHOCYTES # (AUTO) 1.4 X10^3/uL (1.3-2.9); LYMPHOCYTES % (AUTO) 6.1 % (21.0-51.0); MEAN CORPUSCULAR HEMOGLOBIN 24.3 pg (27.0-34.0); MEAN CORPUSCULAR HGB CONC 32.4 g/dL (33.0-35.0); MEAN CORPUSCULAR VOLUME 75.2 fL (80.0-100.0); MEAN PLATELET VOLUME 7.2 fL (7.4-11.0); MONOCYTES # (AUTO) 1.3 x10^3/uL (0.3-0.8); MONOCYTES % (AUTO) 5.9 % (0.0-13.0); NEUTROPHILS # (AUTO) 20.1 x10^3/uL (2.2-4.8); NEUTROPHILS % (AUTO) 87.7 % (42.0-75.0); PLATELET COUNT 574 X10^3/uL (150.0-450.0); RED BLOOD COUNT 3.42 X10^6/uL (4.7-6.0); RED CELL DISTRIBUTION WIDTH 26.7 % (11.6-16.5); WHITE BLOOD COUNT 22.9 X10^3/uL (3.6-10.0)
[2020-11-17 05:29] LABS: ALBUMIN 2.1 g/dL (3.4-5.0); CALCIUM 9.3 mg/dL (8.5-10.1); CARBON DIOXIDE 22.1 mmol/L (21-32); COR CA(FOR HYPOALB) 10.8 mg/dL (8.5-10.1); CREATININE 1.78 mg/dL (0.70-1.30); TOTAL PROTEIN 7.3 g/dL (6.4-8.2)
[2020-11-17 05:56] LABS: ANISOCYTOSIS 3+; PLATELET MORPHOLOGY COMMENT NORMAL (NORMAL)
[2020-11-17] MEDS ORDERED: NS 1000 ML 2,000 ML IV ONE (09:25)
[2020-11-17] MEDS ORDERED: PERCOCET TAB 5/325 MG PO PRN (10:05)
[2020-11-17 13:13] VITALS: BP 111/52
[2020-11-17] MEDS ORDERED: COLACE CAP 100 MG PO SCH (21:00)
[2020-11-17] MEDS ORDERED: FLOMAX PO SCH (21:00)
[2020-11-18] MEDS ORDERED: LINZESS PO SCH (09:00)
== END 2020-11-17 12:15 | disposition short-term general hospital (02) | DRG 375 ==
LOC: MED/SURG 20:02 → ER 20:02 → OBSVTOIN 23:39 → MERGE 23:39 → MED/SURG 11-17 01:34
PROVIDERS: ADMIT Obstetrics & Gynecology Obstetrics; ATTEND Obstetrics & Gynecology Obstetrics

== ENCOUNTER 2020-12-01 19:13 | Inpatient (IN) ==
[2020-12-01 19:32] VITALS: BMI 19.0
[2020-12-01] MEDS ORDERED: NS 1000 ML 1,000 ML ONE ×2 (19:54→22:50)
[2020-12-01] MEDS ORDERED: NS 1000 ML 1,000 ML IV ONE (20:07)
[2020-12-01] MEDS ORDERED: VANCOMYCIN IV *PREMIX 1 G/200 ML BAG 1 G/200 ML PIGGYBACK IV ONE ×2 (20:15→20:25)
[2020-12-01] MEDS ORDERED: ROCEPHIN 1 GRAM IV PREMIX 1 G/50 ML IV.SOLN. IV ONE ×2 (20:16→20:25)
--- NOTE | 2020-12-01 20:21 | DR.N/VMALE ---
HPI Time Seen Time Seen by Provider: 12/01/20 20:13 Primary Care Physician Primary Care Physician: HPI Comment HPI Comment: Patient presents with the complaint of weakness. Notes recent dx of rectal cancer and has not started chemo/rads as of yet. Denies fever, but notes chills and sweating earlier today. Vomiting x 1 episode. No known sick contacts or bad food exposure. Complaints Chief Complaint:: PT STATED SINCE YESTERDAY HE HAS BEEN WEAK AND HAVING SOME BACK PAIN. Self Treatment fo Chief Complaint: HYDROCODNE 10325 COVID-19 Coronavirus risk:travel/contact w/high risk person: No Has patient experienced Coronavirus symptoms: No Source History Provided: Patient Mode of Arrival Mode of Arrival: Wheelchair Timing Onset of Chief Complaint: 12/01/20 PMH PMH Past Medical History: Yes Past Medical History: Arthritis Past Surgical History: Yes Surgical History: Cholecystectomy Past Surgical History Comment: TUMOR REMOVED FROM BACK , KIDNEYS A ND BILATERAL KNEE Family History History of Family Medical Conditions: Yes Family Medical History: Cancer Social History Does patient currently use any type of tobacco product: Yes Have you used tobacco products in the last 12 months: Yes Type of Tobacco Use: Cigarettes Alcohol Use: None Do you use any recreational Drugs:: No Lives With: Family Lives Where: Home Travel Risk Coronavirus risk:travel/contact w/high risk person: No Has patient experienced Coronavirus symptoms: No Infectious screening In the last 2 months have you had wt loss of >10#?: NO Have you traveled outside the country in the last 6 months?: No Isolation: Standard ROS Review of Systems Constitutional: See HPI, Chills, Weakness and Fatigue All Other Systems: Reviewed and Negative PE Vital Signs Vitals: Temperature 98.1 F Pulse Rate [Left] 104 Pulse Rate 102 Respiratory Rate 13 Blood Pressure [Left Arm] 78/51 Blood Pressure [Right Arm] 173/83 Blood Pressure 87/54 O2 Sat by Pulse Oximetry 98 General Limitations: No Limitations General Appearance: Alert and In No Apparent Distress Head Head Exam: Normal Inspection, Atraumatic and Normocephalic ENT ENT Exam: Normal Exam Neck Neck Exam: Normal Inspection and Trachea Midline Chest Chest Inspection: Normal Inspection and Symmetric Chest Wall Rise Respiratory Respiratory Exam: Normal Lung Sounds Bilat Respiratory Exam: Bilateral: Clear to Auscultation Cardiovascular Cardiovascular Exam: Regular Rate, Normal Rhythm and Normal Heart Sounds Extremities Extremities Exam: Normal Inspection Neurologic Neurological Exam: Alert and Oriented X3 Psychiatric Psychiatric Exam: Normal Affect and Normal Mood Skin Skin Exam: Warm, Dry and Intact COURSE Reevaluation 1st: Improved Consultation Consultation Comments: Spoke with Dr. Bolton who accepts the patient for admission ROR Labs Reviewed Laboratory Results Reviewed?: Yes Result Diagrams: 12/01/20 20:25 12/01/20 20:25 Laboratory: WBC 32.7 X10^3/uL (3.6-10.0) H* 12/01/20 20:25 RBC 3.02 X10^6/uL (4.7-6.0) L 12/01/20 20:25 Hgb 7.2 g/dL (13.5-18.0) L 12/01/20 20:25 Hct 23.2 % (42.0-54.0) L 12/01/20 20:25 MCV 77.0 fL (80.0-100.0) L 12/01/20 20:25 MCH 23.8 pg (27.0-34.0) L 12/01/20 20:25 MCHC 30.9 g/dL (33.0-35.0) L 12/01/20 20:25 RDW 24.5 % (11.6-16.5) H 12/01/20 20:25 Plt Count 737 X10^3/uL (150.0-450.0) H 12/01/20 20:25 Plt Count Comment Increased (ADEQUATE) 12/01/20 20: MPV 7.2 fL (7.4-11.0) L 12/01/20 20:25 Neut % (Auto) 89.6 % (42.0-75.0) H 12/01/20 20:25 Lymph % (Auto) 3.5 % (21.0-51.0) L 12/01/20 20:25 [place] % (Auto) 6.6 % (0.0-13.0) 12/01/20 20:25 Eos % (Auto) 0.0 % (0.9-2.9) L 12/01/20 20:25 Baso % (Auto) 0.3 % (0.2-1.0) 12/01/20 20:25 Neut # (Auto) 29.3 x10^3/uL (2.2-4.8) H 12/01/20 20:25 Lymph # (Auto) 1.1 X10^3/uL (1.3-2.9) L 12/01/20 20:25 [place] # (Auto) 2.1 x10^3/uL (0.3-0.8) H 12/01/20 20:25 Eos # (Auto) 0.0 x10^3/uL (0.0-0.2) 12/01/20 20:25 Baso # (Auto) 0.1 X10^3/uL (0.0-0.1) 12/01/20 20:25 Absolute Nucleated RBC 0.0 /100WBC 12/01/20 20:25 Plt Morphology Comment Normal (NORMAL) 12/01/20 20:25 RBC Morphology Abnormal (NORMAL) 12/01/20 20:25 Dimorphic RBCs 1+ 12/01/20 20:25 Hypochromasia 2+ A 12/01/20 20:25 Anisocytosis 3+ A 12/01/20 20:25 Microcytosis 1+ A 12/01/20 20:25 Sodium 127 mmol/L (136-145) L 12/01/20 20:25 Corrected Sodium 128 mmol/L (136-145) L 12/01/20 20:25 Potassium 4.2 mmol/L (3.5-5.1) 12/01/20 20:25 Chloride 94 mmol/L (98-107) L 12/01/20 20:25 Carbon Dioxide 22.9 mmol/L (21-32) 12/01/20 20:25 BUN 22 mg/dL (7-18) H 12/01/20 20:25 Creatinine 1.65 mg/dL (0.70-1.30) H 12/01/20 20:25 Est GFR (MDRD) Af Amer 55 (>60) L 12/01/20 20:25 Est GFR (MDRD) Non-Af 45 (>60) L 12/01/20 20:25 Glucose 139 mg/dL (65-99) H 12/01/20 20:25 Calcium 9.0 mg/dL (8.5-10.1) 12/01/20 20:25 Corrected Calcium 10.7 mg/dL (8.5-10.1) H 12/01/20 20:25 Total Bilirubin 0.50 mg/dL (0.2-1.0) 12/01/20 20:25 AST 37 Units/L (15-37) 12/01/20 20:25 ALT 78 Units/L (12-78) 12/01/20 20:25 Alkaline Phosphatase 364 Units/L (46-116) H 12/01/20 20:25 Creatine Kinase 15 Units/L (39-308) L 12/01/20 20:25 CK-MB (CK-2) < 1.0 ng/mL (0-4.0) 12/01/20 20:25 CK/CKMB % Calc 6.7 % (<4) 12/01/20 20:25 Troponin I < 0.02 ng/mL (0-1.5) 12/01/20 20:25 Total Protein 7.9 g/dL (6.4-8.2) 12/01/20 20:25 Albumin 1.9 g/dL (3.4-5.0) L 12/01/20 20:25 Globulin 6.0 g/dL (2.5-4.5) H 12/01/20 20:25 Albumin/Globulin Ratio 0.3 Ratio (1.1-2.1) L 12/01/20 20:25 SARS-CoV-2 (PCR) Negative (NEGATIVE) 12/01/20 20:28 Influenza Type A (PCR) Negative (NEGATIVE) 12/01/20 20:28 Influenza Type B (PCR) Negative (NEGATIVE) 12/01/20 20:28 RSV (PCR) Negative (NEGATIVE) 12/01/20 20:28 XRAY X-ray Results: HISTORY PT STATED SINCE YESTERDAY HE HAS BEEN WEAK AND HAVING SOME BACK PAIN. STUDY CHEST, 1 VIEW COMPARISON November 06, 2020 TECHNIQUE Chest radiographic imaging, frontal projection, 1 image FINDINGS No cardiomegaly. No focal airspace disease. No pleural effusion. No pneumothorax. No acute osseous abnormality. Left chest port in place. IMPRESSION No imaging findings of acute cardiopulmonary disease. Electronically signed by: Harrison Salamanca (Dec 01, 2020 22:02:09) Opioid Opioid Risk Tool Age (Shakir box if 16-45): No History of Preadolescent Sexual Abuse: No Total: 0 Total Score Risk Category: Low Risk Copyright: Noe MALONEY predicting aberrant behaviors Diagnosis Discharge Problem: SIRS (systemic inflammatory response syndrome)
[2020-12-01 20:48] LABS: BASOPHILS # (AUTO) 0.1 X10^3/uL (0.0-0.1); RED BLOOD COUNT 3.02 X10^6/uL (4.7-6.0)
[2020-12-01 20:51] LABS: BASOPHILS % (AUTO) 0.3 % (0.2-1.0); HEMATOCRIT 23.2 % (42.0-54.0); HEMOGLOBIN 7.2 g/dL (13.5-18.0); LYMPHOCYTES # (AUTO) 1.1 X10^3/uL (1.3-2.9); LYMPHOCYTES % (AUTO) 3.5 % (21.0-51.0); MEAN CORPUSCULAR HEMOGLOBIN 23.8 pg (27.0-34.0); MEAN CORPUSCULAR HGB CONC 30.9 g/dL (33.0-35.0); MEAN PLATELET VOLUME 7.2 fL (7.4-11.0); MONOCYTES # (AUTO) 2.1 x10^3/uL (0.3-0.8); MONOCYTES % (AUTO) 6.6 % (0.0-13.0); NEUTROPHILS # (AUTO) 29.3 x10^3/uL (2.2-4.8); NEUTROPHILS % (AUTO) 89.6 % (42.0-75.0); PLATELET COUNT 737 X10^3/uL (150.0-450.0); RED CELL DISTRIBUTION WIDTH 24.5 % (11.6-16.5)
[2020-12-01 20:55] LABS: WHITE BLOOD COUNT 32.7 X10^3/uL (3.6-10.0)
[2020-12-01 21:07] LABS: BLOOD UREA NITROGEN 22 mg/dL (7-18); CARBON DIOXIDE 22.9 mmol/L (21-32); CHLORIDE 94 mmol/L (98-107); COR NA(FOR HYPERGLY) 128 mmol/L (136-145); CREATININE 1.65 mg/dL (0.70-1.30); SODIUM 127 mmol/L (136-145); TROPONIN I < 0.02 ng/mL (0-1.5); eGFR NON BLACK RACES 45 (>60)
[2020-12-01 21:12] LABS: ALANINE AMINOTRANSFERASE 78 Units/L (12-78); ALBUMIN 1.9 g/dL (3.4-5.0); ALKALINE PHOSPHATASE 364 Units/L (46-116); ASPARTATE AMINO TRANSFERASE 37 Units/L (15-37); CKMB % 6.7 % (<4); COR CA(FOR HYPOALB) 10.7 mg/dL (8.5-10.1); CREATINE KINASE 15 Units/L (39-308); CREATINE KINASE MB < 1.0 ng/mL (0-4.0); TOTAL PROTEIN 7.9 g/dL (6.4-8.2)
[2020-12-01 21:26] LABS: ANISOCYTOSIS 3+; HYPOCHROMASIA 2+; PLATELET MORPHOLOGY COMMENT NORMAL (NORMAL)
[2020-12-01 21:27] LABS: MICROCYTOSIS 1+
--- NOTE | 2020-12-01 22:04 | RAD ---
HISTORYPT STATED SINCE YESTERDAY HE HAS BEEN WEAK AND HAVING SOME BACK PAIN.STUDYCHEST, 1 VIEWCOMPARISONFebruary 2020TECHNIQUEChest radiographic imaging, frontal projection, 1 imageFINDINGSNo cardiomegaly.No focal airspace disease.No pleural effusion.No pneumothorax.No acute osseous abnormality.Left chest port in place.IMPRESSIONNo imaging findings of acute cardiopulmonary disease.Electronically signed by: Harrison Salamanca (Dec 01, 2020 22:02:09)
[2020-12-01] MEDS ORDERED: ROCEPHIN VIAL 1 GRAM 1 G in NS 100 ML IV + SPIKE MINIBAG* 100 ML IV SCH (22:23)
[2020-12-01] MEDS ORDERED: VANCOMYCIN IV *PREMIX 1 G/200 ML BAG 1 G/200 ML PIGGYBACK IV SCH (22:24)
[2020-12-01] MEDS: NS 1000 ML 1,000 ML IV SCH (22:59)
[2020-12-01 23:13] LABS: BILIRUBIN,URINE NEGATIVE (NEGATIVE); BLOOD/HEMOGLOBIN,URINE 5+ (NEGATIVE); GLUCOSE, URINE NEGATIVE (NEGATIVE); KETONES,URINE NEGATIVE (NEGATIVE); LEUKOCYTE ESTERASE ,URINE 3+ (NEGATIVE); NITRITES,URINE NEGATIVE (NEGATIVE); PROTEIN,URINE 4+ (NEGATIVE); UROBILINOGEN,URINE NORMAL (NORMAL)
[2020-12-01 23:25] LABS: APPEARANCE,URINE CLOUDY (CLEAR); BACTERIA,URINE 3+ /HPF (NEGATIVE); COLOR,URINE YELLOW (YELLOW); HYALINE CASTS, URINE MODERATE /LPF (NEGATIVE); RBC,URINE 0-2 /HPF (0-3); SQUAMOUS EPITHELIAL CELL,UR NEGATIVE /HPF (NEGATIVE)
[2020-12-01] MEDS ORDERED: NS 1000 ML 0 ML ONE (23:39)
[2020-12-02] MEDS ORDERED: NORCO 10/325 TAB PO ONE (04:45)
[2020-12-02] MEDS ORDERED: NORCO 10/325 TAB ONE (04:47)
[2020-12-02 05:26] LABS: BASOPHILS # (AUTO) 0.1 X10^3/uL (0.0-0.1); MEAN CORPUSCULAR HGB CONC 31.4 g/dL (33.0-35.0); NEUTROPHILS # (AUTO) 24.5 x10^3/uL (2.2-4.8)
[2020-12-02 05:29] LABS: BASOPHILS % (AUTO) 0.4 % (0.2-1.0); LYMPHOCYTES # (AUTO) 1.9 X10^3/uL (1.3-2.9); LYMPHOCYTES % (AUTO) 6.7 % (21.0-51.0); MEAN CORPUSCULAR HEMOGLOBIN 23.9 pg (27.0-34.0); MEAN CORPUSCULAR VOLUME 76.2 fL (80.0-100.0); MEAN PLATELET VOLUME 7.2 fL (7.4-11.0); MONOCYTES # (AUTO) 1.3 x10^3/uL (0.3-0.8); MONOCYTES % (AUTO) 4.8 % (0.0-13.0); NEUTROPHILS % (AUTO) 88.1 % (42.0-75.0); PLATELET COUNT 662 X10^3/uL (150.0-450.0); RED BLOOD COUNT 2.39 X10^6/uL (4.7-6.0); WHITE BLOOD COUNT 27.8 X10^3/uL (3.6-10.0)
[2020-12-02 05:34] LABS: ALANINE AMINOTRANSFERASE 59 Units/L (12-78); ALBUMIN 1.7 g/dL (3.4-5.0); ALKALINE PHOSPHATASE 291 Units/L (46-116); ASPARTATE AMINO TRANSFERASE 32 Units/L (15-37); BLOOD UREA NITROGEN 24 mg/dL (7-18); CALCIUM 8.6 mg/dL (8.5-10.1); CHLORIDE 98 mmol/L (98-107); COR CA(FOR HYPOALB) 10.4 mg/dL (8.5-10.1); CREATININE 1.28 mg/dL (0.70-1.30); HEMATOCRIT 18.2 % (42.0-54.0); HEMOGLOBIN 5.7 g/dL (13.5-18.0); SODIUM 131 mmol/L (136-145); TOTAL PROTEIN 6.7 g/dL (6.4-8.2); eGFR NON BLACK RACES > 60 (>60)
[2020-12-02 05:44] LABS: ANISOCYTOSIS 3+; HYPOCHROMASIA 2+; MICROCYTOSIS 2+; PLATELET MORPHOLOGY COMMENT NORMAL (NORMAL)
[2020-12-02] MEDS: NS 1000 ML 1,000 ML IV SCH ×2 (08:03→16:27)
--- NOTE | 2020-12-02 09:49 | DR.H&P ---
H&P - History & Physical for Day of: H&P Date: 12/01/20 - Chief Complaint Chief Complaint: GENERALIZED WEAKNESS, CHILLS, DIAPHORESIS, LOWER BACK PAIN, AND NAUSEA/VOMITING. - History of Present Illness History of Present Illness: IS A 59 YEAR OLD PATIENT OF WHO PRESENTED TO THE ER WITH COMPLAINTS OF GENERALIZED WEAKNESS, CHILLS, DIAPHORESIS, LOWER BACK PAIN, AND NAUSEA/VOMITING. SYMPTOMS STARTED ONE DAY PRIOR TO ARRIVAL. HE REPORTS RECENTLY BEING DIAGNOSED WITH RECTAL CANCER, BUT HAS NOT STARTED CHEMO OR RADIATION YET. HE HAD AN EXPLORATORY LAPAROTOMY WITH END COLOSTOMY OF THE SIGMOD COLON AND PARTIAL RESECTION OF THE RECTOSIGMOID COLON ON 10/20/2020. HE ALSO HAS NEPHROSTOMY TUBES BILATERALLY. BACK PAIN IS DESCRIBED DULL AND WAS RATED A 5/10 ON ADMISSION. HE HAS BEEN TAKING HYDROCODONE 10/325MG Q6H PRN AT HOME. ON EXAMINATION, HEART IS REGULAR IN RATE AND RHYTHM. BILATERAL LUNGS ARE NOTED WITH DIMINISHED LUNG SOUNDS THROUGHOUT. ABDOMEN IS FLAT, SOFT, AND NON-TENDER WITH NORMAL BOWEL SOUNDS NOTED IN ALL QUADRANTS. COLOSTOMY NOTED TO THE RIGHT SIDE ABDOMEN. NEPHROSOTOMY TUBES NOTED TO THE LOWER BACK. DECREASED SKIN TURGOR NOTED AND PATIENT IS PALE IN COLOR. ON ARRIVAL, HIS VITALS WERE 98.1-109-24-99%-74/37. LABS WERE OBTAINED. ABNORMAL LAB VALUES INCLUDE THE FOLLOWING: WBC 32.7, RBC 3.02, HGB 7.2, HCT 23.2, PLT COUNT 737, SODIUM 127, CHLORIDE 94, BUN 22, CREATININE 1.65, GLUCOSE 139, ALK PHOS 364, CREATINE KINASE 15, ALBUMIN 1.9. URINALYSIS OBTAINED AND REVEALED: WBC TNTC, RBC 0-2, BACTERIA 3+, LEUKOCYTES 3+, OCCULT BLOOD 5+. A URINE CULTURE WAS SET UP. BLOOD CULTURES WERE ALSO SET UP. STOOL IS POSITIVE FOR OCCULT BLOOD. COVID-19, RSV, AND INFLUENZA NEGATIVE. A CHEST XRAY WAS OBTAINED AND REVEALED: No imaging findings of acute cardiopulmonary disease. IN THE ER, HE WAS GIVEN A NORMAL SALINE BOLUS, VANCOMYCIN 1G IV X 1 DOSE, ROCEPHIN 1G IV X 1 DOSE, NORCO 10/325MG X 1 DOSE. HE DENIED SIGNIFICANT IMPROVEMENT IN SYMPTOMS. HE WAS ADMITTED TO THE HOSPITAL FOR FURTHER EVALUATION AND TREATMENT OF SIRS, ACUTE RENAL FAILURE, ANEMIA, HYPONATREMIA, AND RECTAL CANCER. HE WAS STARTED ON NORMAL SALINE AT 125 ML/HR, ROCEPHIN 1G IV DAILY, VANCOMYCIN DAILY. WE PLANNED TO REVIEW HIS HOME MEDICATIONS WHEN THEY ARE AVAILABLE TO US. WE WILL TYPE AND SCREEN, CROSSMATCH, AND TRANSFUSE 2 UNITS OF PRBC. OTHERWISE, WE PLAN TO FOLLOW UP WITH AM LABS AND CONTINUE TO MONITOR. TIME SPENT ON CLINICAL ASSESSMENT, R EVIEWING LABS AND IMAGING, DECISION MAKING, AND DOCUMENTATION WAS GREATER THAN 75 MINUTES. - Past Medical History Past Medical History: Arthritis Additional Medical History: RECTAL CANCER - Past Surgical History Surgical History: Bowel Resection, Cholecystectomy Additional Surgical History: COLOSTOMY, NEPHROSTOMY TUBES - Family History Family Medical History: Cancer - Social History Does patient currently use any type of tobacco product: Yes Have you used tobacco products in the last 12 months: Yes Type of Tobacco Use: Cigarettes Alcohol Use: None Drug Use: None - Medications Home Medications: tramadol Allergy (Unknown, Verified 10/12/20 20:50) meloxicam [From Mobic] Allergy (Verified 10/12/20 20:50) Penicillins Allergy (Verified 04/26/19 00:59) - Review of Systems Constitutional: See HPI, Chills, Sweats, Weakness Eyes: No Symptoms Reported ENT: No Symptoms Reported Respiratory: No Symptoms Reported Cardiovascular: No Symptoms Reported Gastrointestinal: See HPI, Nausea, Vomiting Genitourinary: No Symptoms Reported Musculoskeletal: See HPI, Back Pain Skin: No Symptoms Reported Neurological: Weakness - Physical Exam Vital Signs: Temperature 97.4 F Pulse Rate [Left] 99 Pulse Rate 94 Respiratory Rate 18 Blood Pressure [Left Arm] 100/54 Blood Pressure [Right Arm] 173/83 Blood Pressure 94/55 O2 Sat by Pulse Oximetry 97 Oriented: Normal Eyes: Normal Ear: Normal Nose: Normal Throat: Normal Respiratory: Diminished Throughout Cardiovascular: Normal : Normal Auscultation: Bowel Sounds: Normal Palpation: Normal Tenderness: Normal, Other (COLOSTOMY ) Skin: Decreased Turgur Musculoskeletal: Back:Lumbar, Tender Psychiatric: Normal Mood Description: Calm Affect: Normal Speech Pattern: Clear - Assessment/Plan (1) SIRS (systemic inflammatory response syndrome) Status: Acute Plan: ADMIT, NORMAL SALINE AT 125 ML/HR, ROCEPHIN 1G IV DAILY, VANCOMYCIN DAILY, TRANSFUSE 2 UNITS PRBC, CONTINUE TO MONITOR (2) Renal failure, acute Qualifiers: Acute renal failure type: unspecified Qualified Code(s): N17.9 - Acute kidney failure, unspecified Status: Acute (3) Anemia Qualifiers: Anemia type: iron deficiency Iron deficiency anemia type: chronic blood loss Qualified Code(s): D50.0 - Iron deficiency anemia secondary to blood loss (chronic) Status: Acute (4) Urinary tract infection Qualifiers: Urinary tract infection type: site unspecified Hematuria presence: without hematuria Qualified Code(s): N39.0 - Urinary tract infection, site not specified Status: Acute (5) Dehydration Status: Acute (6) Hyponatremia Status: Acute (7) Rectal cancer Status: Acute - Allergies Allergies/Adverse Reactions: Allergies Allergy/AdvReac Type Severity Reaction Status Date / Time tramadol Allergy Unknown Verified 10/12/20 20:50 meloxicam [From Mobic] Allergy Verified 10/12/20 20:50 Penicillins Allergy Verified 04/26/19 00:59
[2020-12-02] MEDS: CIPRO IV 400 MG PREMIX* 400 MG/200 ML IV.SOLN. IV SCH ×2 (09:53→20:06)
[2020-12-02] MEDS: INVANZ INJ 1 GM VIAL 1 GM in NS 100 ML IV + SPIKE MINIBAG* 100 ML IV SCH (09:53)
[2020-12-02] MEDS ORDERED: PHARMACY CONSULT - TPN XX SCH (10:00)
[2020-12-02] MEDS ORDERED: MORPHINE SULFATE INJ 2 MG INJ IVP PRN (11:35)
[2020-12-02] MEDS ORDERED: TYLENOL 325 MG TAB PO ONE (11:36)
[2020-12-02] MEDS: ALBUMIN HUMAN 25%- 100 ML 100 ML IV SCH (12:46)
[2020-12-02] MEDS: PERCOCET TAB 5/325 MG PO PRN ×2 (12:55→20:06)
[2020-12-02] MEDS ORDERED: NS 100 ML IV 100 ML IV ONE ×2 (15:00→20:15)
[2020-12-02] MEDS: NS 250 ML IV 250 ML IV STA ×2 (16:27→22:50)
[2020-12-02] MEDS ORDERED: VANCOMYCIN IV *PREMIX 1 G/200 ML BAG 1 G/200 ML PIGGYBACK IV SCH (21:00)
[2020-12-02] MEDS ORDERED: AMBIEN PO ONE (22:41)
[2020-12-03] MEDS ORDERED: NS 1000 ML 1,000 ML ONE (02:30)
[2020-12-03 02:31] LABS: HEMATOCRIT 23.7 % (42.0-54.0); HEMOGLOBIN 7.8 g/dL (13.5-18.0)
[2020-12-03] MEDS: PROCALAMINE 3 % 1,000 ML IV SCH ×3 (02:36→09:01)
[2020-12-03] MEDS: NS 1000 ML 1,000 ML IV SCH ×3 (02:37→15:45)
[2020-12-03] MEDS: PERCOCET TAB 5/325 MG PO PRN ×4 (04:59→21:01)
[2020-12-03 06:15] LABS: BASOPHILS # (AUTO) 0.1 X10^3/uL (0.0-0.1); BASOPHILS % (AUTO) 0.4 % (0.2-1.0); EOSINOPHILS % (AUTO) 0.2 % (0.9-2.9); HEMATOCRIT 24.3 % (42.0-54.0); LYMPHOCYTES # (AUTO) 1.4 X10^3/uL (1.3-2.9); MEAN CORPUSCULAR HEMOGLOBIN 26.2 pg (27.0-34.0); MEAN CORPUSCULAR VOLUME 79.4 fL (80.0-100.0); MEAN PLATELET VOLUME 7.3 fL (7.4-11.0); MONOCYTES % (AUTO) 6.9 % (0.0-13.0); NEUTROPHILS # (AUTO) 11.4 x10^3/uL (2.2-4.8); NEUTROPHILS % (AUTO) 82.5 % (42.0-75.0); PLATELET COUNT 612 X10^3/uL (150.0-450.0); RED BLOOD COUNT 3.06 X10^6/uL (4.7-6.0); RED CELL DISTRIBUTION WIDTH 22.7 % (11.6-16.5)
[2020-12-03 06:21] LABS: ALANINE AMINOTRANSFERASE 69 Units/L (12-78); ALKALINE PHOSPHATASE 247 Units/L (46-116); ASPARTATE AMINO TRANSFERASE 63 Units/L (15-37); BLOOD UREA NITROGEN 14 mg/dL (7-18); CALCIUM 9.1 mg/dL (8.5-10.1); CARBON DIOXIDE 21.4 mmol/L (21-32); CHLORIDE 104 mmol/L (98-107); COR CA(FOR HYPOALB) 10.7 mg/dL (8.5-10.1); CREATININE 0.98 mg/dL (0.70-1.30); SODIUM 138 mmol/L (136-145); TOTAL PROTEIN 6.9 g/dL (6.4-8.2); eGFR NON BLACK RACES > 60 (>60)
[2020-12-03 06:26] LABS: WHITE BLOOD COUNT 13.8 X10^3/uL (3.6-10.0)
[2020-12-03 06:40] LABS: ANISOCYTOSIS 2+; PLATELET MORPHOLOGY COMMENT NORMAL (NORMAL)
[2020-12-03] MEDS ORDERED: POTASSIUM CHL 40 MEQ/NS 0.45% 500 ML IV PRN (08:13)
[2020-12-03] MEDS ORDERED: K-DUR TAB 20 MEQ PO PRN (08:13)
[2020-12-03] MEDS ORDERED: POTASSIUM CHLORIDE LIQ 20 MEQ UDC PO PRN (08:13)
[2020-12-03] MEDS ORDERED: KLOR-CON PO PRN (08:13)
[2020-12-03] MEDS ORDERED: MICRO K EXTEN CAP 10 MEQ PO PRN (08:13)
[2020-12-03] MEDS ORDERED: K-RIDER 10 MEQ/NS 100 ML 10 MEQ/100 ML BAG IV PRN (08:13)
[2020-12-03] MEDS ORDERED: POTASSIUM CHL 60 MEQ/NS 0.45% 500 ML IV PRN (08:13)
[2020-12-03] MEDS: ALBUMIN HUMAN 25%- 100 ML 100 ML IV SCH (08:52)
[2020-12-03] MEDS: CIPRO IV 400 MG PREMIX* 400 MG/200 ML IV.SOLN. IV SCH ×2 (09:59→20:55)
[2020-12-03] MEDS ORDERED: DEXTROSE 10% 1,000 ML IV PRN (10:03)
[2020-12-03] MEDS ORDERED: HumuLIN R SUBCUT PRN (10:03)
[2020-12-03 10:33] LABS: PHOSPHORUS 2.6 mg/dL (2.6-4.7)
[2020-12-03] MEDS: INVANZ INJ 1 GM VIAL 1 GM in NS 100 ML IV + SPIKE MINIBAG* 100 ML IV SCH (11:25)
[2020-12-03] MEDS ORDERED: NS 100 ML IV 100 ML IV ONE (12:21)
[2020-12-03] MEDS: CLINIMIX 5 %/20 % 1,000 ML with MVI INJ (ADULT) 10 ML, TPN ELECTROLYTES 20 ML, TRACE EL... IV SCH ×8 (12:29→15:44)
[2020-12-03] MEDS: NEURONTIN CAP 300 MG PO SCH ×2 (17:20→20:56)
[2020-12-03] MEDS: LIORESAL PO SCH ×2 (17:20→22:56)
--- NOTE | 2020-12-03 17:51 | PCM.PROG ---
Progress Note - Progress Note for Day of Date of Exam: 12/02/20 - Subjective Subjective: WAS ADMITTED FOR TREATMENT OF SIRS, ACUTE RENAL FAILURE, ANEMIA, UTI, HYPONATREMIA, AND RECTAL CANCER. HE HAS HAD A COLON RESECTION WITH COLOSTOMY, BUT HAS NOT STARTED CHEMO OR RADIATION OF THIS TIME. TODAY, HE IS ALERT AND ORIENTED, LYING IN BED ON MORNING ROUNDS. HE CONTINUES WITH COMPLAINTS OF GENERALIZED WEAKNESS, NAUSEA, AND LOWER BACK PAIN. ON EXAMINATION, HEART IS REGULAR IN RATE AND RHYTHM. BILATERAL LUNGS ARE NOTED WITH DIMINISHED LUNG SOUNDS THROUGHOUT. ABDOMEN IS FLAT, SOFT, AND NON-TENDER WITH NORMAL BOWEL SOUNDS NOTED IN ALL QUADRANTS. COLOSTOMY NOTED TO THE RIGHT SIDE ABDOMEN. NEPHROSOTOMY TUBES NOTED. DECREASED SKIN TURGOR NOTED AND PATIENT IS PALE IN COLOR. HIS VITALS THIS MORNING WERE: 97.1-90-17-90%-98/63. LABS WERE OBTAINED. ABNORMAL LAB VALUES INCLUDE THE FOLLOWING: WBC 27.8, RBC 2.39, HGB 5.7, HCT 18.2, PLT COUNT 662, SODIUM 131, CARBON DIOXIDE 20, BUN 24, GLUCOSE 102, ALK PHOS 291, ALBUMIN 1.7, GLOBULIN 5.0, PREALBUMIN 8.7. BLOOD AND URINE CULTURES ARE PENDING. WE HAVE ORDERED TWO UNITS OF PRBC THAT WILL BE TRANSFUSED TODAY. HE IS CURRENTLY RECEIVING NORMAL SALINE AT 125 ML/HR, ROCEPHIN 1G IV DAILY, VANCOMYCIN DAILY. TODAY, WE WILL DISCONTINUE THE ROCEPHIN AND VANCOMYCIN. WE WILL START INVANZ 1G IV DAILY, CIPRO 400MG IV Q12H, TPN AT 50 ML/HR, AND ALBUMIN 25% IV DAILY. WE WILL DECREASE HIS IV FLUIDS TO 50 ML/HR. OTHERWISE, WE PLAN TO FOLLOW UP WITH AM LABS AND CONTINUE TO MONITOR. TIME SPENT ON CLINICAL ASSESSMENT, REVIEWING LABS AND IMAGING, DECISION MAKING, AND DOCUMENTATION WAS GREATER THAN 45 MINUTES. - Past Medical Family Social History Past Med/Fam/Surg Hx: No changes since H&P Allergies: Allergies tramadol Allergy (Unknown, Verified 10/12/20 20:50) meloxicam [From Mobic] Allergy (Verified 10/12/20 20:50) Penicillins Allergy (Verified 04/26/19 00:59) - Review of Systems ROS: No change since H&P - Vital Signs and I&O's Vital Signs: Temperature 97.6 F Pulse Rate [Left] 82 Pulse Rate 94 Respiratory Rate 18 Blood Pressure [Left Arm] 138/69 Blood Pressure [Right Arm] 173/83 Blood Pressure 94/55 O2 Sat by Pulse Oximetry 97 Intake and Output: Intake & Output 12/01/20 12/02/20 12/03/20 12/04/20 11:59 11:59 11:59 11:59 Intake Total 465 / 465 2288 / 2288 1761 / 1761 Output Total 900 / 900 2525 / 2525 250 / 250 Balance -435 / -435 -237 / -237 1511 / 1511 - Physical Exam Oriented: Normal Eyes: Normal Ear: Normal Nose: Normal Throat: Normal Respiratory: Generalized, Diminished Cardiovascular: Normal : Normal Auscultation: Bowel Sounds: Normal Palpation: Normal Tenderness: Normal, Other (COLOSTOMY ) Skin: Decreased Turgur Musculoskeletal: Back:Lumbar, Tender Psychiatric: Normal Mood Description: Calm Affect: Normal Speech Pattern: Clear, Appropriate - Laboratory and Diagnostics Result Diagrams: 12/03/20 05:34 12/03/20 05:34 Labs: 12/01/20 22:55 Urine,Catheterized Urine Culture - Preliminary 12/01/20 20:25 Blood Blood Culture - Preliminary 12/01/20 20:36 Blood Blood Culture - Preliminary Laboratory WBC 13.8 X10^3/uL (3.6-10.0) H D 12/03/20 05:34 RBC 3.06 X10^6/uL (4.7-6.0) L 12/03/20 05:34 Hgb 8.0 g/dL (13.5-18.0) L 12/03/20 05:34 Hct 24.3 % (42.0-54.0) L 12/03/20 05:34 MCV 79.4 fL (80.0-100.0) L 12/03/20 05:34 MCH 26.2 pg (27.0-34.0) L 12/03/20 05:34 MCHC 33.0 g/dL (33.0-35.0) 12/03/20 05:34 RDW 22.7 % (11.6-16.5) H 12/03/20 05:34 Plt Count 612 X10^3/uL (150.0-450.0) H 12/03/20 05:34 Plt Count Comment Increased (ADEQUATE) 12/03/20 05:34 MPV 7.3 fL (7.4-11.0) L 12/03/20 05:34 Neut % (Auto) 82.5 % (42.0-75.0) H 12/03/20 05:34 Lymph % (Auto) 10.0 % (21.0-51.0) L 12/03/20 05:34 [place] % (Auto) 6.9 % (0.0-13.0) 12/03/20 05:34 Eos % (Auto) 0.2 % (0.9-2.9) L 12/03/20 05:34 Baso % (Auto) 0.4 % (0.2-1.0) 12/03/20 05:34 Neut # (Auto) 11.4 x10^3/uL (2.2-4.8) H 12/03/20 05:34 Lymph # (Auto) 1.4 X10^3/uL (1.3-2.9) 12/03/20 05:34 [place] # (Auto) 1.0 x10^3/uL (0.3-0.8) H 12/03/20 05:34 Eos # (Auto) 0.0 x10^3/uL (0.0-0.2) 12/03/20 05:34 Baso # (Auto) 0.1 X10^3/uL (0.0-0.1) 12/03/20 05:34 Absolute Nucleated RBC 0.0 /100WBC 12/03/20 05:34 Total Counted 100 12/02/20 05:10 Neutrophils % (Manual) 90 % (39-76) H 12/02/20 05:10 Lymphocytes % (Manual) 10 % (13-43) L 12/02/20 05:10 Plt Morphology Comment Normal (NORMAL) 12/03/20 05:34 RBC Morphology Abnormal (NORMAL) 12/03/20 05:34 Dimorphic RBCs Slight 12/02/20 05:10 Hypochromasia 2+ A 12/02/20 05:10 Anisocytosis 2+ A 12/03/20 05:34 Microcytosis 2+ A 12/02/20 05:10 Sodium 138 mmol/L (136-145) 12/03/20 05:34 Corrected Sodium TNP 12/03/20 05:34 Potassium 3.6 mmol/L (3.5-5.1) 12/03/20 05:34 Chloride 104 mmol/L (98-107) 12/03/20 05:34 Carbon Dioxide 21.4 mmol/L (21-32) 12/03/20 05:34 BUN 14 mg/dL (7-18) 12/03/20 05:34 Creatinine 0.98 mg/dL (0.70-1.30) 12/03/20 05:34 Est GFR (MDRD) Af Amer > 60 (>60) 12/03/20 05:34 Est GFR (MDRD) Non-Af > 60 (>60) 12/03/20 05:34 Glucose 88 mg/dL (65-99) 12/03/20 05:34 POC Glucose (mg/dL) 94 mg/dL (65-99) 12/03/20 11:29 Calcium 9.1 mg/dL (8.5-10.1) 12/03/20 05:34 Corrected Calcium 10.7 mg/dL (8.5-10.1) H 12/03/20 05:34 Phosphorus 2.6 mg/dL (2.6-4.7) 12/03/20 05:34 Magnesium 1.8 mg/dL (1.7-2.9) 12/03/20 05:34 Total Bilirubin 0.30 mg/dL (0.2-1.0) 12/03/20 05:34 AST 63 Units/L (15-37) H 12/03/20 05:34 ALT 69 Units/L (12-78) 12/03/20 05:34 Alkaline Phosphatase 247 Units/L (46-116) H 12/03/20 05:34 Creatine Kinase 15 Units/L (39-308) L 12/01/20 20:25 CK-MB (CK-2) < 1.0 ng/mL (0-4.0) 12/01/20 20:25 CK/CKMB % Calc 6.7 % (<4) 12/01/20 20:25 Troponin I < 0.02 ng/mL (0-1.5) 12/01/20 20:25 Total Protein 6.9 g/dL (6.4-8.2) 12/03/20 05:34 Albumin 2.0 g/dL (3.4-5.0) L 12/03/20 05:34 Globulin 4.9 g/dL (2.5-4.5) H 12/03/20 05:34 Albumin/Globulin Ratio 0.4 Ratio (1.1-2.1) L 12/03/20 05:34 Prealbumin 8.7 mg/dL (18-35.7) L 12/02/20 05:10 Triglycerides 214 mg/dL (0-150) H 12/03/20 05:34 Specimen Type Catherized urine 12/01/20 22:55 Urine Color Yellow (YELLOW) 12/01/20 22:55 Urine Appearance Cloudy (CLEAR) 12/01/20 22:55 Urine pH 5.0 (5.0 - 8.0) 12/01/20 22:55 Ur Specific [place] 1.020 (1.000-1.030) 12/01/20 22:55 Urine Protein 4+ (NEGATIVE) 12/01/20 22:55 Urine Glucose (UA) Negative (NEGATIVE) 12/01/20 22:55 Urine Ketones Negative (NEGATIVE) 12/01/20 22:55 Urine Occult Blood 5+ (NEGATIVE) 12/01/20 22:55 Urine Nitrite Negative (NEGATIVE) 12/01/20 22:55 Urine Bilirubin Negative (NEGATIVE) 12/01/20 22:55 Urine Urobilinogen Normal (NORMAL) 12/01/20 22:55 Ur Leukocyte Esterase 3+ (NEGATIVE) 12/01/20 22:55 Urine RBC 0-2 /HPF (0-3) 12/01/20 22:55 Urine WBC Tntc /HPF (0-5) A 12/01/20 22:55 Ur Squamous Epith Cells Negative /HPF (NEGATIVE) 12/01/20 22:55 Urine Bacteria 3+ /HPF (NEGATIVE) 12/01/20 22:55 Hyaline Casts Moderate /LPF (NEGATIVE) 12/01/20 22:55 Ur Culture Indicated? Yes/culture set up 12/01/20 22:55 Stool Description 20g brown watery 12/02/20 05:40 Stl Occult Blood (IFOB) Positive (NEGATIVE) A 12/02/20 05:40 SARS-CoV-2 (PCR) Negative (NEGATIVE) 12/01/20 20:28 Influenza Type A (PCR) Negative (NEGATIVE) 12/01/20 20:28 Influenza Type B (PCR) Negative (NEGATIVE) 12/01/20 20:28 RSV (PCR) Negative (NEGATIVE) 12/01/20 20:28 Blood Type O NEGATIVE 12/02/20 05:58 Antibody Screen Negative 12/02/20 05:58 Crossmatch See Detail 12/02/20 05:58 - Plan (1) SIRS (systemic inflammatory response syndrome) Status: Acute Plan: NORMAL SALINE AT 50 ML/HR, TPN AT 50 ML/HR, CIPRO 400MG IV BID, INVANZ 1G IV DAILY, ALBUMIN 25% IV DAILY, TRANSFUSE 2 UNITS PRBC, CONTINUE TO MONITOR (2) Renal failure, acute Status: Acute Qualifiers: Acute renal failure type: unspecified Qualified Code(s): N17.9 - Acute kidney failure, unspecified (3) Anemia Status: Acute Qualifiers: Anemia type: iron deficiency Iron deficiency anemia type: chronic blood loss Qualified Code(s): D50.0 - Iron deficiency anemia secondary to blood loss (chronic) (4) Urinary tract infection Status: Acute Qualifiers: Urinary tract infection type: site unspecified Hematuria presence: without hematuria Qualified Code(s): N39.0 - Urinary tract infection, site not spe cified (5) Dehydration Status: Acute (6) Hyponatremia Status: Acute (7) Rectal cancer Status: Acute
--- NOTE | 2020-12-03 17:55 | PCM.PROG ---
Progress Note - Progress Note for Day of Date of Exam: 12/03/20 - Subjective Subjective: WAS ADMITTED FOR TREATMENT OF SIRS, ACUTE RENAL FAILURE, ANEMIA, UTI, HYPONATREMIA, AND RECTAL CANCER. HE HAS HAD A COLON RESECTION WITH COLOSTOMY, BUT HAS NOT STARTED CHEMO OR RADIATION OF THIS TIME. TODAY, HE IS ALERT AND ORIENTED, LYING IN BED ON MORNING ROUNDS. HE CONTINUES WITH COMPLAINTS OF GENERALIZED WEAKNESS AND LOWER BACK PAIN TODAY, BUT REPORTS SLIGHT IMPROVEMENT SINCE YESTERDAY. HE RECEIVED TWO UNITS OF PRBC YESTERDAY. ON EXAMINATION, HEART IS REGULAR IN RATE AND RHYTHM. BILATERAL LUNGS ARE NOTED WITH DIMINISHED LUNG SOUNDS THROUGHOUT. ABDOMEN IS FLAT, SOFT, AND NON-TENDER WITH NORMAL BOWEL SOUNDS NOTED IN ALL QUADRANTS. COLOSTOMY NOTED TO THE RIGHT SIDE ABDOMEN. NEPHROSOTOMY TUBES NOTED. DECREASED SKIN TURGOR NOTED AND PATIENT IS PALE IN COLOR. HIS VITALS THIS MORNING WERE: 97.6-85-19-99%-123/61. LABS WERE OBTAINED. ABNORMAL LAB VALUES INCLUDE THE FOLLOWING: WBC 13.8, RBC 3.06, HGB 8.0, HCT 24.3, PLT COUNT 612, SODIUM 131, CARBON DIOXIDE 20, BUN 24, GLUCOSE 102, ALK PHOS 291, ALBUMIN 1.7, GLOBULIN 5.0, PREALBUMIN 8.7. BLOOD AND URINE CULTURES ARE PENDING. HE IS CURRENTLY RECEIVING NORMAL SALINE AT 50 ML/HR, TPN AT 50 ML/HR, INVANZ 1G IV DAILY, CIPRO 400MG IV Q12H, AND ALBUMIN 25% IV DAILY. TODAY, WE WILL TRANSFUSE TWO ADDITIONAL UNITS OF PRBC. OTHERWISE, WE PLAN TO FOLLOW UP WITH AM LABS AND CONTINUE TO MONITOR. TIME SPENT ON CLINICAL ASSESSMENT, REVIEWING LABS AND IMAGING, DECISION MAKING, AND DOCUMENTATION WAS GREATER THAN 45 MINUTES. - Past Medical Family Social History Past Med/Fam/Surg Hx: No changes since H&P Allergies: Allergies tramadol Allergy (Unknown, Verified 10/12/20 20:50) meloxicam [From Mobic] Allergy (Verified 10/12/20 20:50) Penicillins Allergy (Verified 04/26/19 00:59) - Review of Systems ROS: No change since H&P - Vital Signs and I&O's Vital Signs: Temperature 97.6 F Pulse Rate [Left] 82 Pulse Rate 94 Respiratory Rate 18 Blood Pressure [Left Arm] 138/69 Blood Pressure [Right Arm] 173/83 Blood Pressure 94/55 O2 Sat by Pulse Oximetry 97 Intake and Output: Intake & Output 12/01/20 12/02/20 12/03/20 12/04/20 11:59 11:59 11:59 11:59 Intake Total 465 / 465 2288 / 2288 1761 / 1761 Output Total 900 / 900 2525 / 2525 250 / 250 Balance -435 / -435 -237 / -237 1511 / 1511 - Physical Exam Oriented: Normal Eyes: Normal Ear: Normal Nose: Normal Throat: Normal Respiratory: Generalized, Diminished Cardiovascular: Normal : Normal Auscultation: Bowel Sounds: Normal Tenderness: Normal, Other (COLOSTOMY ) Skin: Decreased Turgur Musculoskeletal: Back:Lumbar, Tender Psychiatric: Normal Mood Description: Calm Affect: Normal Speech Pattern: Clear, Appropriate - Laboratory and Diagnostics Result Diagrams: 12/03/20 05:34 12/03/20 05:34 Labs: 12/01/20 22:55 Urine,Catheterized Urine Culture - Preliminary 12/01/20 20:25 Blood Blood Culture - Preliminary 12/01/20 20:36 Blood Blood Culture - Preliminary Laboratory WBC 13.8 X10^3/uL (3.6-10.0) H D 12/03/20 05:34 RBC 3.06 X10^6/uL (4.7-6.0) L 12/03/20 05:34 Hgb 8.0 g/dL (13.5-18.0) L 12/03/20 05:34 Hct 24.3 % (42.0-54.0) L 12/03/20 05:34 MCV 79.4 fL (80.0-100.0) L 12/03/20 05:34 MCH 26.2 pg (27.0-34.0) L 12/03/20 05:34 MCHC 33.0 g/dL (33.0-35.0) 12/03/20 05:34 RDW 22.7 % (11.6-16.5) H 12/03/20 05:34 Plt Count 612 X10^3/uL (150.0-450.0) H 12/03/20 05:34 Plt Count Comment Increased (ADEQUATE) 12/03/20 05:34 MPV 7.3 fL (7.4-11.0) L 12/03/20 05:34 Neut % (Auto) 82.5 % (42.0-75.0) H 12/03/20 05:34 Lymph % (Auto) 10.0 % (21.0-51.0) L 12/03/20 05:34 [place] % (Auto) 6.9 % (0.0-13.0) 12/03/20 05:34 Eos % (Auto) 0.2 % (0.9-2.9) L 12/03/20 05:34 Baso % (Auto) 0.4 % (0.2-1.0) 12/03/20 05:34 Neut # (Auto) 11.4 x10^3/uL (2.2-4.8) H 12/03/20 05:34 Lymph # (Auto) 1.4 X10^3/uL (1.3-2.9) 12/03/20 05:34 [place] # (Auto) 1.0 x10^3/uL (0.3-0.8) H 12/03/20 05:34 Eos # (Auto) 0.0 x10^3/uL (0.0-0.2) 12/03/20 05:34 Baso # (Auto) 0.1 X10^3/uL (0.0-0.1) 12/03/20 05:34 Absolute Nucleated RBC 0.0 /100WBC 12/03/20 05:34 Total Counted 100 12/02/20 05:10 Neutrophils % (Manual) 90 % (39-76) H 12/02/20 05:10 Lymphocytes % (Manual) 10 % (13-43) L 12/02/20 05:10 Plt Morphology Comment Normal (NORMAL) 12/03/20 05:34 RBC Morphology Abnormal (NORMAL) 12/03/20 05:34 Dimorphic RBCs Slight 12/02/20 05:10 Hypochromasia 2+ A 12/02/20 05:10 Anisocytosis 2+ A 12/03/20 05:34 Microcytosis 2+ A 12/02/20 05:10 Sodium 138 mmol/L (136-145) 12/03/20 05:34 Corrected Sodium TNP 12/03/20 05:34 Potassium 3.6 mmol/L (3.5-5.1) 12/03/20 05:34 Chloride 104 mmol/L (98-107) 12/03/20 05:34 Carbon Dioxide 21.4 mmol/L (21-32) 12/03/20 05:34 BUN 14 mg/dL (7-18) 12/03/20 05:34 Creatinine 0.98 mg/dL (0.70-1.30) 12/03/20 05:34 Est GFR (MDRD) Af Amer > 60 (>60) 12/03/20 05:34 Est GFR (MDRD) Non-Af > 60 (>60) 12/03/20 05:34 Glucose 88 mg/dL (65-99) 12/03/20 05:34 POC Glucose (mg/dL) 94 mg/dL (65-99) 12/03/20 11:29 Calcium 9.1 mg/dL (8.5-10.1) 12/03/20 05:34 Corrected Calcium 10.7 mg/dL (8.5-10.1) H 12/03/20 05:34 Phosphorus 2.6 mg/dL (2.6-4.7) 12/03/20 05:34 Magnesium 1.8 mg/dL (1.7-2.9) 12/03/20 05:34 Total Bilirubin 0.30 mg/dL (0.2-1.0) 12/03/20 05:34 AST 63 Units/L (15-37) H 12/03/20 05:34 ALT 69 Units/L (12-78) 12/03/20 05:34 Alkaline Phosphatase 247 Units/L (46-116) H 12/03/20 05:34 Creatine Kinase 15 Units/L (39-308) L 12/01/20 20:25 CK-MB (CK-2) < 1.0 ng/mL (0-4.0) 12/01/20 20:25 CK/CKMB % Calc 6.7 % (<4) 12/01/20 20:25 Troponin I < 0.02 ng/mL (0-1.5) 12/01/20 20:25 Total Protein 6.9 g/dL (6.4-8.2) 12/03/20 05:34 Albumin 2.0 g/dL (3.4-5.0) L 12/03/20 05:34 Globulin 4.9 g/dL (2.5-4.5) H 12/03/20 05:34 Albumin/Globulin Ratio 0.4 Ratio (1.1-2.1) L 12/03/20 05:34 Prealbumin 8.7 mg/dL (18-35.7) L 12/02/20 05:10 Triglycerides 214 mg/dL (0-150) H 12/03/20 05:34 Specimen Type Catherized urine 12/01/20 22:55 Urine Color Yellow (YELLOW) 12/01/20 22:55 Urine Appearance Cloudy (CLEAR) 12/01/20 22:55 Urine pH 5.0 (5.0 - 8.0) 12/01/20 22:55 Ur Specific [place] 1.020 (1.000-1.030) 12/01/20 22:55 Urine Protein 4+ (NEGATIVE) 12/01/20 22:55 Urine Glucose (UA) Negative (NEGATIVE) 12/01/20 22:55 Urine Ketones Negative (NEGATIVE) 12/01/20 22:55 Urine Occult Blood 5+ (NEGATIVE) 12/01/20 22:55 Urine Nitrite Negative (NEGATIVE) 12/01/20 22:55 Urine Bilirubin Negative (NEGATIVE) 12/01/20 22:55 Urine Urobilinogen Normal (NORMAL) 12/01/20 22:55 Ur Leukocyte Esterase 3+ (NEGATIVE) 12/01/20 22:55 Urine RBC 0-2 /HPF (0-3) 12/01/20 22:55 Urine WBC Tntc /HPF (0-5) A 12/01/20 22:55 Ur Squamous Epith Cells Negative /HPF (NEGATIVE) 12/01/20 22:55 Urine Bacteria 3+ /HPF (NEGATIVE) 12/01/20 22:55 Hyaline Casts Moderate /LPF (NEGATIVE) 12/01/20 22:55 Ur Culture Indicated? Yes/culture set up 12/01/20 22:55 Stool Description 20g brown watery 12/02/20 05:40 Stl Occult Blood (IFOB) Positive (NEGATIVE) A 12/02/20 05:40 SARS-CoV-2 (PCR) Negative (NEGATIVE) 12/01/20 20:28 Influenza Type A (PCR) Negative (NEGATIVE) 12/01/20 20:28 Influenza Type B (PCR) Negative (NEGATIVE) 12/01/20 20:28 RSV (PCR) Negative (NEGATIVE) 12/01/20 20:28 Blood Type O NEGATIVE 12/02/20 05:58 Antibody Screen Negative 12/02/20 05:58 Crossmatch See Detail 12/02/20 05:58 - Plan (1) SIRS (systemic inflammatory response syndrome) Status: Acute Plan: NORMAL SALINE AT 50 ML/HR, TPN AT 50 ML/HR, CIPRO 400MG IV BID, INVANZ 1G IV DAILY, ALBUMIN 25% IV DAILY, TRANSFUSE 2 UNITS PRBC, CONTINUE TO MONITOR (2) Renal failure, acute Status: Acute Qualifiers: Acute renal failure type: unspecified Qualified Code(s): N17.9 - Acute kidney failure, unspecified (3) Anemia Status: Acute Qualifiers: Anemia type: iron deficiency Iron deficiency anemia type: chronic blood loss Qualified Code(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
[2020-12-03 20:54] LABS: HEMATOCRIT 30.9 % (42.0-54.0)
[2020-12-03 20:55] LABS: HEMOGLOBIN 9.9 g/dL (13.5-18.0)
[2020-12-03] MEDS: CYMBALTA PO SCH (20:57)
[2020-12-03] MEDS ORDERED: REQUIP PO SCH (21:00)
[2020-12-03] MEDS ORDERED: AMBIEN PO PRN (21:00)
[2020-12-03] MEDS ORDERED: ZANAFLEX PO SCH (21:00)
[2020-12-03] MEDS: COLACE CAP 100 MG PO SCH (21:01)
[2020-12-03] MEDS: MAGNESIUM SULFATE 1 GRAM/100 mL PREMIX 1 GM/100 ML BAG IV PRN (22:30)
[2020-12-04] MEDS: MAGNESIUM SULFATE 1 GRAM/100 mL PREMIX 1 GM/100 ML BAG IV PRN (00:23)
[2020-12-04] MEDS: NS 1000 ML 1,000 ML IV SCH ×2 (01:39→08:04)
[2020-12-04] MEDS: PERCOCET TAB 5/325 MG PO PRN ×2 (04:56→09:22)
[2020-12-04 05:06] LABS: BASOPHILS # (AUTO) 0.1 X10^3/uL (0.0-0.1); BASOPHILS % (AUTO) 1.3 % (0.2-1.0); EOSINOPHILS % (AUTO) 0.4 % (0.9-2.9); HEMATOCRIT 30.5 % (42.0-54.0); HEMOGLOBIN 9.7 g/dL (13.5-18.0); LYMPHOCYTES # (AUTO) 1.7 X10^3/uL (1.3-2.9); MEAN CORPUSCULAR VOLUME 81.3 fL (80.0-100.0); MEAN PLATELET VOLUME 7.6 fL (7.4-11.0); NEUTROPHILS # (AUTO) 8.2 x10^3/uL (2.2-4.8); NEUTROPHILS % (AUTO) 74.3 % (42.0-75.0); PLATELET COUNT 566 X10^3/uL (150.0-450.0); RED BLOOD COUNT 3.75 X10^6/uL (4.7-6.0); RED CELL DISTRIBUTION WIDTH 20.1 % (11.6-16.5); WHITE BLOOD COUNT 11.1 X10^3/uL (3.6-10.0)
[2020-12-04 05:10] LABS: PREALBUMIN 10.9 mg/dL (18-35.7)
[2020-12-04 05:18] LABS: ALANINE AMINOTRANSFERASE 118 Units/L (12-78); ALBUMIN 2.3 g/dL (3.4-5.0); ALKALINE PHOSPHATASE 393 Units/L (46-116); ASPARTATE AMINO TRANSFERASE 154 Units/L (15-37); BLOOD UREA NITROGEN 11 mg/dL (7-18); CALCIUM 9.4 mg/dL (8.5-10.1); CARBON DIOXIDE 22.3 mmol/L (21-32); CHLORIDE 103 mmol/L (98-107); COR CA(FOR HYPOALB) 10.8 mg/dL (8.5-10.1); COR NA(FOR HYPERGLY) 137 mmol/L (136-145); CREATININE 0.94 mg/dL (0.70-1.30); MAGNESIUM 2.6 mg/dL (1.7-2.9); SODIUM 136 mmol/L (136-145); eGFR NON BLACK RACES > 60 (>60)
[2020-12-04 05:46] LABS: ANISOCYTOSIS 1+; MICROCYTOSIS 2+; PLATELET MORPHOLOGY COMMENT NORMAL (NORMAL)
[2020-12-04] MEDS: CLINIMIX 5 %/20 % 1,000 ML with MVI INJ (ADULT) 10 ML, TPN ELECTROLYTES 20 ML, TRACE EL... IV SCH ×4 (06:12)
[2020-12-04] MEDS: LIORESAL PO SCH (06:19)
[2020-12-04 08:04] VITALS: BP 146/66
[2020-12-04] MEDS ORDERED: FERROUS GLUCONATE PO SCH (09:00)
[2020-12-04] MEDS: COLACE CAP 100 MG PO SCH (09:01)
[2020-12-04] MEDS: NEURONTIN CAP 300 MG PO SCH (09:01)
[2020-12-04] MEDS: CYMBALTA PO SCH (09:02)
[2020-12-04] MEDS: ALBUMIN HUMAN 25%- 100 ML 100 ML IV SCH (09:03)
[2020-12-04] MEDS: CIPRO IV 400 MG PREMIX* 400 MG/200 ML IV.SOLN. IV SCH (09:04)
[2020-12-04] MEDS: INVANZ INJ 1 GM VIAL 1 GM in NS 100 ML IV + SPIKE MINIBAG* 100 ML IV SCH (09:04)
[2020-12-04] MEDS ORDERED: PHARMACY COMMENT IV SCH (20:30)
== END 2020-12-04 12:15 | disposition home health service (06) | DRG 374 ==
LOC: ER 19:17 → MED/SURG 22:21
PROVIDERS: ADMIT Internal Medicine; ATTEND Obstetrics & Gynecology Obstetrics
DX: R26.89 Other abnormalities of gait and mobility; D50.0 Iron deficiency anemia secondary to blood loss (chronic); D63.0 Anemia in neoplastic disease; B96.29 Other Escherichia coli [E. coli] as the cause of diseases classified elsewhere; N39.0 Urinary tract infection, site not specified; Z20.822 Contact with and (suspected) exposure to COVID-19; C20 Malignant neoplasm of rectum; R94.5 Abnormal results of liver function studies; R94.31 Abnormal electrocardiogram [ECG] [EKG]; E87.1 Hypo-osmolality and hyponatremia; R65.11 Systemic inflammatory response syndrome (SIRS) of non-infectious origin with acute organ dysfunction; N17.8 Other acute kidney failure

== ENCOUNTER 2021-01-11 10:37 | Observation (INO) ==
[2021-01-11] MEDS: D5 1/2 NS 1000 ML 1,000 ML IV SCH (16:57)
[2021-01-11] MEDS: ZOFRAN INJ 4 MG VIAL IVP PRN (17:11)
[2021-01-11 17:21] LABS: BASOPHILS % (AUTO) 0.1 % (0.2-1.0); EOSINOPHILS # (AUTO) 0.1 x10^3/uL (0.0-0.2); EOSINOPHILS % (AUTO) 0.5 % (0.9-2.9); HEMATOCRIT 26.2 % (42.0-54.0); HEMOGLOBIN 8.6 g/dL (13.5-18.0); LYMPHOCYTES # (AUTO) 0.6 X10^3/uL (1.3-2.9); LYMPHOCYTES % (AUTO) 3.5 % (21.0-51.0); MEAN CORPUSCULAR HEMOGLOBIN 26.9 pg (27.0-34.0); MEAN CORPUSCULAR HGB CONC 32.9 g/dL (33.0-35.0); MEAN CORPUSCULAR VOLUME 81.8 fL (80.0-100.0); MEAN PLATELET VOLUME 7.1 fL (7.4-11.0); MONOCYTES # (AUTO) 1.1 x10^3/uL (0.3-0.8); MONOCYTES % (AUTO) 6.2 % (0.0-13.0); NEUTROPHILS # (AUTO) 15.7 x10^3/uL (2.2-4.8); NEUTROPHILS % (AUTO) 89.7 % (42.0-75.0); PLATELET COUNT 620 X10^3/uL (150.0-450.0); RED BLOOD COUNT 3.21 X10^6/uL (4.7-6.0); WHITE BLOOD COUNT 17.5 X10^3/uL (3.6-10.0)
[2021-01-11 17:26] LABS: ALANINE AMINOTRANSFERASE 29 Units/L (12-78); ALBUMIN 2.2 g/dL (3.4-5.0); ALKALINE PHOSPHATASE 372 Units/L (46-116); ASPARTATE AMINO TRANSFERASE 22 Units/L (15-37); BLOOD UREA NITROGEN 24 mg/dL (7-18); CALCIUM 9.7 mg/dL (8.5-10.1); CARBON DIOXIDE 29.8 mmol/L (21-32); CHLORIDE 92 mmol/L (98-107); COR CA(FOR HYPOALB) 11.1 mg/dL (8.5-10.1); COR NA(FOR HYPERGLY) 131 mmol/L (136-145); CREATININE 1.27 mg/dL (0.70-1.30); SODIUM 130 mmol/L (136-145); TOTAL PROTEIN 8.4 g/dL (6.4-8.2); eGFR NON BLACK RACES > 60 (>60)
[2021-01-11] MEDS ORDERED: POTASSIUM CHL 60 MEQ/NS 0.45% 500 ML IV PRN (17:32)
[2021-01-11] MEDS ORDERED: POTASSIUM CHL 40 MEQ/NS 0.45% 500 ML IV PRN (17:32)
[2021-01-11] MEDS ORDERED: KLOR-CON PO PRN (17:32)
[2021-01-11] MEDS ORDERED: MAGNESIUM SULFATE 1 GRAM/100 mL PREMIX 1 GM/100 ML BAG IV PRN (17:32)
[2021-01-11] MEDS ORDERED: POTASSIUM CHLORIDE LIQ 20 MEQ UDC PO PRN (17:32)
[2021-01-11] MEDS ORDERED: MICRO K EXTEN CAP 10 MEQ PO PRN (17:32)
[2021-01-11] MEDS ORDERED: K-DUR TAB 20 MEQ PO PRN (17:32)
[2021-01-11] MEDS: K-RIDER 10 MEQ/NS 100 ML 10 MEQ/100 ML BAG IV PRN ×4 (17:45→23:09)
[2021-01-11] MEDS ORDERED: NARCAN INJ IVP PRN (17:47)
--- NOTE | 2021-01-11 19:27 | RAD ---
HISTORYpatient noted with colostomy with hard stool in bag.patient stated he is having hard stool and that the 'whole is not big enough for the stool to pass easlySTUDYKUBBrighton Hospitaluary [id number] supine projection, 1 imageFINDINGSNumerous distended gas filled loops of small bowel.Ostomy in the left lower abdomen.Percutaneous bilateral nephrostomy tubes in place.Surgical clips in the right upper quadrant.IMPRESSIONNumerous gas distended loops of small bowel could represent an ileus or mechanical small bowel obstruction.Electronically signed by: Harrison Salamanca (Jan 11, 2021 19:26:17)
[2021-01-11] MEDS: DILAUDID INJ IVP PRN (23:59)
[2021-01-12] MEDS: D5 1/2 NS 1000 ML 1,000 ML IV SCH ×2 (03:36→04:47)
[2021-01-12] MEDS ORDERED: INFeD or DEXFERRUM 25 MG in NS 100 ML IV 100 ML IV NR (09:00)
[2021-01-12] MEDS ORDERED: LINZESS PO ONE (09:31)
[2021-01-12] MEDS ORDERED: COLACE CAP 100 MG PO ONE (09:32)
--- NOTE | 2021-01-12 09:58 | DR.PROGNOT ---
Hospital Progress Notes - Progress Note for Day of: Progress Note Date: 01/12/21 - Chief Complaint Chief Complaint: more alert this AM . no nausea or vomiting . stool in colostomy bag . abdominal Xray ahowed dilated small bowel loops . WBC 17.5 .. HGB 8.6 .. BUN/Creat - Past Medical Family Social History Past Med/Fam/Surg Hx: No changes since H&P Allergies: Allergies tramadol Allergy (Unknown, Verified 12/04/20 10:23) codeine Allergy (Verified 12/04/20 10:23) meloxicam [From Mobic] Allergy (Verified 12/04/20 10:23) Penicillins Allergy (Verified 12/04/20 10:23) - Review Of Systems ROS: No change since H&P - Vital Signs Vital Signs: Temperature 98.5 F Pulse Rate [Right Brachial] 61 Respiratory Rate 16 Blood Pressure [Right Arm] 151/67 Blood Pressure [Left Arm] 111/52 O2 Sat by Pulse Oximetry 98 - Physical Exam Oriented: Normal Eyes: Normal Ear: Normal Nose: Normal Throat: Normal Respiratory: Normal Cardiovascular: Normal : Normal GI: Tenderness: Diffuse (moderate tenderness . BS+.. colostomy is functioning ) Speech Pattern: Clear, Appropriate - Laboratory and Diagnostics Result Diagrams: 01/11/21 17:05 01/12/21 03:30 Labs: Laboratory WBC 17.5 X10^3/uL (3.6-10.0) H 01/11/21 17:05 RBC 3.21 X10^6/uL (4.7-6.0) L 01/11/21 17:05 Hgb 8.6 g/dL (13.5-18.0) L 01/11/21 17:05 Hct 26.2 % (42.0-54.0) L 01/11/21 17:05 MCV 81.8 fL (80.0-100.0) 01/11/21 17:05 MCH 26.9 pg (27.0-34.0) L 01/11/21 17:05 MCHC 32.9 g/dL (33.0-35.0) L 01/11/21 17:05 RDW 19.0 % (11.6-16.5) H 01/11/21 17:05 Plt Count 620 X10^3/uL (150.0-450.0) H 01/11/21 17:05 MPV 7.1 fL (7.4-11.0) L 01/11/21 17:05 Neut % (Auto) 89.7 % (42.0-75.0) H 01/11/21 17:05 Lymph % (Auto) 3.5 % (21.0-51.0) L 01/11/21 17:05 [place] % (Auto) 6.2 % (0.0-13.0) 01/11/21 17:05 Eos % (Auto) 0.5 % (0.9-2.9) L 01/11/21 17:05 Baso % (Auto) 0.1 % (0.2-1.0) L 01/11/21 17:05 Neut # (Auto) 15.7 x10^3/uL (2.2-4.8) H 01/11/21 17:05 Lymph # (Auto) 0.6 X10^3/uL (1.3-2.9) L 01/11/21 17:05 [place] # (Auto) 1.1 x10^3/uL (0.3-0.8) H 01/11/21 17:05 Eos # (Auto) 0.1 x10^3/uL (0.0-0.2) 01/11/21 17:05 Baso # (Auto) 0.0 X10^3/uL (0.0-0.1) 01/11/21 17:05 Absolute Nucleated RBC 0.0 /100WBC 01/11/21 17:05 Sodium 130 mmol/L (136-145) L 01/11/21 17:05 Corrected Sodium 131 mmol/L (136-145) L 01/11/21 17:05 Potassium 4.0 mmol/L (3.5-5.1) 01/12/21 03:30 Chloride 92 mmol/L (98-107) L 01/11/21 17:05 Carbon Dioxide 29.8 mmol/L (21-32) 01/11/21 17:05 BUN 24 mg/dL (7-18) H 01/11/21 17:05 Creatinine 1.27 mg/dL (0.70-1.30) 01/11/21 17:05 Est GFR (MDRD) Af Amer > 60 (>60) 01/11/21 17:05 Est GFR (MDRD) Non-Af > 60 (>60) 01/11/21 17:05 Glucose 124 mg/dL (65-99) H 01/11/21 17:05 Calcium 9.7 mg/dL (8.5-10.1) 01/11/21 17:05 Corrected Calcium 11.1 mg/dL (8.5-10.1) H 01/11/21 17:05 Magnesium 2.1 mg/dL (1.7-2.9) 01/11/21 17:05 Total Bilirubin 0.70 mg/dL (0.2-1.0) 01/11/21 17:05 AST 22 Units/L (15-37) 01/11/21 17:05 ALT 29 Units/L (12-78) 01/11/21 17:05 Alkaline Phosphatase 372 Units/L (46-116) H 01/11/21 17:05 Total Protein 8.4 g/dL (6.4-8.2) H 01/11/21 17:05 Albumin 2.2 g/dL (3.4-5.0) L 01/11/21 17:05 Globulin 6.2 g/dL (2.5-4.5) H 01/11/21 17:05 Albumin/Globulin Ratio 0.4 Ratio (1.1-2.1) L 01/11/21 17:05 SARS CoV-2 RNA Rapid ADELINA Negative (NEGATIVE) 01/11/21 14:12 - Assessment and Plan 1: partial SBO . dehydrtion and poor oral intake .. anemia ( on chemo and radiation [place] ). upper recal ca . to advance diet this am .
[2021-01-12] MEDS ORDERED: INFeD or DEXFERRUM 975 MG in NS 500 ML IV 500 ML IV NR (10:00)
[2021-01-12] MEDS: NS 1000 ML 1,000 ML IV SCH ×2 (10:42→17:38)
[2021-01-12 11:10] VITALS: BMI 17.8
[2021-01-12] MEDS: DILAUDID INJ IVP PRN ×3 (12:00→20:27)
[2021-01-12] MEDS: ZOFRAN INJ 4 MG VIAL IVP PRN ×2 (17:33→23:51)
[2021-01-13] MEDS: DILAUDID INJ IVP PRN ×2 (03:47→07:30)
[2021-01-13] MEDS: NS 1000 ML 1,000 ML IV SCH ×2 (03:47→10:13)
[2021-01-13 04:52] LABS: BASOPHILS % (AUTO) 0.2 % (0.2-1.0); EOSINOPHILS # (AUTO) 0.1 x10^3/uL (0.0-0.2); EOSINOPHILS % (AUTO) 0.3 % (0.9-2.9); HEMATOCRIT 25.1 % (42.0-54.0); HEMOGLOBIN 7.8 g/dL (13.5-18.0); LYMPHOCYTES # (AUTO) 0.5 X10^3/uL (1.3-2.9); LYMPHOCYTES % (AUTO) 2.9 % (21.0-51.0); MEAN CORPUSCULAR HEMOGLOBIN 25.9 pg (27.0-34.0); MEAN CORPUSCULAR HGB CONC 31.1 g/dL (33.0-35.0); MEAN CORPUSCULAR VOLUME 83.2 fL (80.0-100.0); MONOCYTES # (AUTO) 0.9 x10^3/uL (0.3-0.8); MONOCYTES % (AUTO) 4.8 % (0.0-13.0); NEUTROPHILS # (AUTO) 16.6 x10^3/uL (2.2-4.8); NEUTROPHILS % (AUTO) 91.8 % (42.0-75.0); PLATELET COUNT 619 X10^3/uL (150.0-450.0); RED BLOOD COUNT 3.02 X10^6/uL (4.7-6.0); RED CELL DISTRIBUTION WIDTH 18.8 % (11.6-16.5); WHITE BLOOD COUNT 18.1 X10^3/uL (3.6-10.0)
[2021-01-13 05:06] LABS: ALBUMIN 1.9 g/dL (3.4-5.0); ALKALINE PHOSPHATASE 348 Units/L (46-116); BLOOD UREA NITROGEN 12 mg/dL (7-18); CALCIUM 8.8 mg/dL (8.5-10.1); CARBON DIOXIDE 24.2 mmol/L (21-32); CHLORIDE 102 mmol/L (98-107); COR CA(FOR HYPOALB) 10.5 mg/dL (8.5-10.1); COR NA(FOR HYPERGLY) 136 mmol/L (136-145); SODIUM 136 mmol/L (136-145); TOTAL PROTEIN 7.4 g/dL (6.4-8.2); eGFR NON BLACK RACES > 60 (>60)
[2021-01-13 05:40] LABS: PLATELET MORPHOLOGY COMMENT NORMAL (NORMAL)
[2021-01-13 05:41] LABS: ALANINE AMINOTRANSFERASE 38 Units/L (12-78); ASPARTATE AMINO TRANSFERASE 43 Units/L (15-37)
[2021-01-13] MEDS: ZOFRAN INJ 4 MG VIAL IVP PRN (07:30)
[2021-01-13 07:49] VITALS: BP 140/63
[2021-01-13] MEDS ORDERED: LOVENOX INJ 40 MG SYR SC SCH (09:00)
--- NOTE | 2021-01-13 10:00 | DR.PROGNOT ---
Hospital Progress Notes - Progress Note for Day of: Progress Note Date: 01/13/21 - Chief Complaint Chief Complaint: more alert this AM . no nausea or vomiting .tolerating diet well . colostomy is functioning well now . Hgb 7.1.. Alk Phos 348 - Past Medical Family Social History Past Med/Fam/Surg Hx: No changes since H&P Allergies: Allergies tramadol Allergy (Unknown, Verified 12/04/20 10:23) codeine Allergy (Verified 12/04/20 10:23) meloxicam [From Mobic] Allergy (Verified 12/04/20 10:23) Penicillins Allergy (Verified 12/04/20 10:23) - Review Of Systems ROS: No change since H&P - Vital Signs Vital Signs: Temperature 98.7 F Pulse Rate [Right Brachial] 104 Respiratory Rate 18 Blood Pressure [Right Arm] 140/63 Blood Pressure [Left Arm] 111/52 O2 Sat by Pulse Oximetry 98 - Physical Exam Oriented: Normal Eyes: Normal Ear: Normal Nose: Normal Throat: Normal Respiratory: Normal Cardiovascular: Normal : Normal GI: Tenderness: Diffuse (moderate tenderness . BS+.. colostomy is functioning ) Speech Pattern: Clear, Appropriate - Laboratory and Diagnostics Result Diagrams: 01/13/21 04:05 01/13/21 04:05 Labs: Laboratory WBC 18.1 X10^3/uL (3.6-10.0) H 01/13/21 04:05 RBC 3.02 X10^6/uL (4.7-6.0) L 01/13/21 04:05 Hgb 7.8 g/dL (13.5-18.0) L 01/13/21 04:05 Hct 25.1 % (42.0-54.0) L 01/13/21 04:05 MCV 83.2 fL (80.0-100.0) 01/13/21 04:05 MCH 25.9 pg (27.0-34.0) L 01/13/21 04:05 MCHC 31.1 g/dL (33.0-35.0) L 01/13/21 04:05 RDW 18.8 % (11.6-16.5) H 01/13/21 04:05 Plt Count 619 X10^3/uL (150.0-450.0) H 01/13/21 04:05 Plt Count Comment Increased (ADEQUATE) 01/13/21 04:05 MPV 7.0 fL (7.4-11.0) L 01/13/21 04:05 Neut % (Auto) 91.8 % (42.0-75.0) H 01/13/21 04:05 Lymph % (Auto) 2.9 % (21.0-51.0) L 01/13/21 04:05 [place] % (Auto) 4.8 % (0.0-13.0) 01/13/21 04:05 Eos % (Auto) 0.3 % (0.9-2.9) L 01/13/21 04:05 Baso % (Auto) 0.2 % (0.2-1.0) 01/13/21 04:05 Neut # (Auto) 16.6 x10^3/uL (2.2-4.8) H 01/13/21 04:05 Lymph # (Auto) 0.5 X10^3/uL (1.3-2.9) L 01/13/21 04:05 [place] # (Auto) 0.9 x10^3/uL (0.3-0.8) H 01/13/21 04:05 Eos # (Auto) 0.1 x10^3/uL (0.0-0.2) 01/13/21 04:05 Baso # (Auto) 0.0 X10^3/uL (0.0-0.1) 01/13/21 04:05 Absolute Nucleated RBC 0.0 /100WBC 01/13/21 04:05 Total Counted 100 01/13/21 04:05 Neutrophils % (Manual) 95 % (39-76) H 01/13/21 04:05 Lymphocytes % (Manual) 5 % (13-43) L 01/13/21 04:05 Plt Morphology Comment Normal (NORMAL) 01/13/21 04:05 RBC Morphology Normal (NORMAL) 01/13/21 04:05 Sodium 136 mmol/L (136-145) 01/13/21 04:05 Corrected Sodium 136 mmol/L (136-145) 01/13/21 04:05 Potassium 3.6 mmol/L (3.5-5.1) 01/13/21 04:05 Chloride 102 mmol/L (98-107) 01/13/21 04:05 Carbon Dioxide 24.2 mmol/L (21-32) 01/13/21 04:05 BUN 12 mg/dL (7-18) 01/13/21 04:05 Creatinine 0.80 mg/dL (0.70-1.30) 01/13/21 04:05 Est GFR (MDRD) Af Amer > 60 (>60) 01/13/21 04:05 Est GFR (MDRD) Non-Af > 60 (>60) 01/13/21 04:05 Glucose 115 mg/dL (65-99) H 01/13/21 04:05 Calcium 8.8 mg/dL (8.5-10.1) 01/13/21 04:05 Corrected Calcium 10.5 mg/dL (8.5-10.1) H 01/13/21 04:05 Magnesium 2.1 mg/dL (1.7-2.9) 01/11/21 17:05 Total Bilirubin 0.60 mg/dL (0.2-1.0) 01/13/21 04:05 AST 43 Units/L (15-37) H 01/13/21 04:05 ALT 38 Units/L (12-78) 01/13/21 04:05 Alkaline Phosphatase 348 Units/L (46-116) H 01/13/21 04:05 Total Protein 7.4 g/dL (6.4-8.2) 01/13/21 04:05 Albumin 1.9 g/dL (3.4-5.0) L 01/13/21 04:05 Globulin 5.5 g/dL (2.5-4.5) H 01/13/21 04:05 Albumin/Globulin Ratio 0.3 Ratio (1.1-2.1) L 01/13/21 04:05 SARS CoV-2 RNA Rapid ADELINA Negative (NEGATIVE) 01/11/21 14:12 - Assessment and Plan 1: resoved partial SBO and impaction 2nd to narcotics . dehydrtion and poor oral intake .. anemia ( on chemo and radiation [place] ). chronic blodd loss. recal cancer .( s/p colostomy , bilateral nephrostomies. to advance diet this am and D/C today .
== END 2021-01-13 10:47 | disposition home health service (06) ==
LOC: MED/SURG
PROVIDERS: ADMIT Surgery; ATTEND Surgery
DX: K56.690 Other partial intestinal obstruction; Z93.3 Colostomy status; C20 Malignant neoplasm of rectum; R79.89 Other specified abnormal findings of blood chemistry; R26.89 Other abnormalities of gait and mobility; D62 Acute posthemorrhagic anemia; E86.0 Dehydration; K56.41 Fecal impaction; E87.1 Hypo-osmolality and hyponatremia; R10.84 Generalized abdominal pain; Z20.822 Contact with and (suspected) exposure to COVID-19; Z92.21 Personal history of antineoplastic chemotherapy; D64.81 Anemia due to antineoplastic chemotherapy; Z92.3 Personal history of irradiation; R41.82 Altered mental status, unspecified

== ENCOUNTER 2021-01-16 14:10 | Observation (INO) ==
[2021-01-16 14:26] VITALS: BMI 18.1
[2021-01-16] MEDS ORDERED: NS 1000 ML 1,000 ML IV ONE (14:52)
--- NOTE | 2021-01-16 15:25 | DR.EXTPAIN ---
HPI Time seen Time Seen by Provider: 01/16/21 14:51 PCP Primary Care Physician: BRITT HPI Comment HPI Comment: PATIENT WITH A HISTORY OF COLON CARCINOMA, PRESENTLY UNDERGOING CHEMOTHERAPY AND RADIATION THERAPY PAST 2 WEEK, UNDERWENT A NEPHROSTOMY TUBE IN SERTION RIGHT KIDNEY TO TO OBSTRUCTION. HAS ASSOCIATED GENERALIZED WEAKNESS, REFERRED BY HOME HEALTH NURSE FOR EVALUATION OF ANEMIA. PATIENT COMPLAINS OF GENERALIZED WEAKNESS. DENIES ABDOMINAL PAIN, FEVER, COUGH, DYSPNEA, NAUSEA OR EMESIS. Complaint/Symptoms Chief Complaint Doctor Comments: SEVERE ANEMIA Chief Complaint:: PT C/O HAVING A LOW HGB AND HIS TUBE THAT IS IN HIS RT KIDNEY IS TRYING TO COME OUT. PT STATES HIS HOME HEALTH NURSE CAME TO SEE HIM THIS MORNING AND STATES HIS BLOOD LEVELS WAS LOW AND SHE CHANGED THE TUBE IN HIS BACK THAT IS CONNECTED TO HIS RIGHT KIDNEY AND IT WAS MEETING RISITANCE AND CONTINUED TO SLIDE OUT. HOME HEALTH NURSE TAPED TUBE AND TOLD PATIENT HE NEEDED TO BE EVALUATED AND HAVING IT SEEN ABOUT. COVID-19 Coronavirus risk:travel/contact w/high risk person: No Has patient experienced Coronavirus symptoms: No Nurses notes reviewed Nurses Notes Review: Yes Source History Provided: Patient Mode of arrival Mode of Arrival: Ambulatory Timing Onset of Chief Complaint: 01/16/21 Associated signs and symptoms Associated Signs and Symptoms: Other (WEAKNESSS) PMH PMH Past Medical History: Yes Past Medical History: Arthritis Past Medical History Comment: COLON CA Past Surgical History: Yes Surgical History: Abdominal Surgery, Cholecystectomy and Other Family History History of Family Medical Conditions: Yes Family Medical History: Cancer Social History Does patient currently use any type of tobacco product: Yes Have you used tobacco products in the last 12 months: Yes Type of Tobacco Use: Cigarettes Does any household member use tobacco: Yes Alcohol Use: None Do you use any recreational Drugs:: No Lives With: Family Lives Where: Home Travel Risk Coronavirus risk:travel/contact w/high risk person: No Has patient experienced Coronavirus symptoms: No Infectious screening In the last 2 months have you had wt loss of >10#?: NO Have you had fever, night sweats or hemotysis?: No Have you traveled outside the country in the last 6 months?: No Isolation: Standard ROS Review of Systems Constitutional: See HPI and Weakness Eyes: No Symptoms Reported ENTM: No Symptoms Reported Respiratoy: No Symptoms Reported Cardiovascular: No Symptoms Reported Gastrointestinal/Abdominal: No Symptoms Reported Genitourinary: No Symptoms Reported Neurological: Weakness Musculoskeletal: No Symptoms Reported Integumentary: No Symptoms Reported Hematologic/Lymphatic: No Symptoms Reported Endocrine: No Symptoms Reported Psychiatric: No Symptoms Reported All Other Systems: Reviewed and Negative PE Vital Signs Vitals: Temperature 98.1 F Pulse Rate 114 Respiratory Rate 20 Blood Pressure [Right Arm] 140/63 Blood Pressure 108/54 O2 Sat by Pulse Oximetry 98 General Limitations: No Limitations General Appearance: Alert and In No Apparent Distress Head Head Exam: Normal Inspection and Atraumatic Eyes Eye exam: Normal Appearance, PERRL and EOMI ENT ENT Exam: Normal Exam and Normal Oropharynx Neck Neck Exam: Normal Inspection and Full ROM Chest Chest Inspection: Normal Inspection and Symmetric Chest Wall Rise Respiratory Respiratory Exam: Normal Lung Sounds Bilat and Accessory Muscle Use Respiratory Exam: Bilateral: Clear to Auscultation Cardiovascular Cardiovascular Exam: Regular Rate and Normal Rhythm Abdominal Exam Abdominal Exam: Normal Inspection, Normal Bowel Sounds and Soft (THERE IS A LEFT LOWER QUAD COLOSTOMY , PATENT) Extremities Extremities Exam: Normal Inspection and Full ROM Upper Extremities Shoulder Exam: Normal Inspection Neuromotor Exam: Normal Exam Back Back Exam: Normal Inspection and (R) CVA Tenderness (THERE IS A NEPHROSTOMY TUBE RIGHT CVA, URINE DRAINAGE IN LEG BAG) Neurological Neurological Exam: Alert and Oriented X3 Psychiatric Psychiatric Exam: Normal Affect and Normal Mood MDM Differential Diagnosis Differential Diagnosis: Other (SYMPTOMATIC ANEMIA, HISTORY OF COLON CARCINOMA) COURSE Treatment Treatment: IV NORMAL SALINE 50ML/HR Consultation Call Returned: 16:10 Consultation Comments: DISCUSSED FINDINGS WITH DR DE LA TORRE AT 1610 FOR OBSERVATION ROR Labs Reviewed Result Diagrams: 01/16/21 15:25 01/16/21 15:25 Laboratory: WBC 13.7 X10^3/uL (3.6-10.0) H 01/16/21 15:25 RBC 2.67 X10^6/uL (4.7-6.0) L 01/16/21 15:25 Hgb 7.2 g/dL (13.5-18.0) L 01/16/21 15:25 Hct 22.0 % (42.0-54.0) L 01/16/21 15:25 MCV 82.6 fL (80.0-100.0) 01/16/21 15:25 MCH 26.9 pg (27.0-34.0) L 01/16/21 15:25 MCHC 32.6 g/dL (33.0-35.0) L 01/16/21 15:25 RDW 19.2 % (11.6-16.5) H 01/16/21 15:25 Plt Count 395 X10^3/uL (150.0-450.0) 01/16/21 15:25 MPV 6.8 fL (7.4-11.0) L 01/16/21 15:25 Neut % (Auto) 83.8 % (42.0-75.0) H 01/16/21 15:25 Lymph % (Auto) 5.6 % (21.0-51.0) L 01/16/21 15:25 [place] % (Auto) 9.6 % (0.0-13.0) 01/16/21 15:25 Eos % (Auto) 0.7 % (0.9-2.9) L 01/16/21 15:25 Baso % (Auto) 0.3 % (0.2-1.0) 01/16/21 15:25 Neut # (Auto) 11.5 x10^3/uL (2.2-4.8) H 01/16/21 15:25 Lymph # (Auto) 0.8 X10^3/uL (1.3-2.9) L 01/16/21 15:25 [place] # (Auto) 1.3 x10^3/uL (0.3-0.8) H 01/16/21 15:25 Eos # (Auto) 0.1 x10^3/uL (0.0-0.2) 01/16/21 15:25 Baso # (Auto) 0.0 X10^3/uL (0.0-0.1) 01/16/21 15:25 Absolute Nucleated RBC 0.0 /100WBC 01/16/21 15:25 Sodium 133 mmol/L (136-145) L 01/16/21 15:25 Corrected Sodium 134 mmol/L (136-145) L 01/16/21 15:25 Potassium 3.1 mmol/L (3.5-5.1) L 01/16/21 15:25 Chloride 97 mmol/L (98-107) L 01/16/21 15:25 Carbon Dioxide 27.5 mmol/L (21-32) 01/16/21 15:25 BUN 13 mg/dL (7-18) 01/16/21 15:25 Creatinine 0.97 mg/dL (0.70-1.30) 01/16/21 15:25 Est GFR (MDRD) Af Amer > 60 (>60) 01/16/21 15:25 Est GFR (MDRD) Non-Af > 60 (>60) 01/16/21 15:25 Glucose 127 mg/dL (65-99) H 01/16/21 15:25 Calcium 8.9 mg/dL (8.5-10.1) 01/16/21 15:25 Corrected Calcium 10.7 mg/dL (8.5-10.1) H 01/16/21 15:25 Total Bilirubin 0.40 mg/dL (0.2-1.0) 01/16/21 15:25 AST 30 Units/L (15-37) 01/16/21 15:25 ALT 43 Units/L (12-78) 01/16/21 15:25 Alkaline Phosphatase 282 Units/L (46-116) H 01/16/21 15:25 Total Protein 7.2 g/dL (6.4-8.2) 01/16/21 15:25 Albumin 1.8 g/dL (3.4-5.0) L 01/16/21 15:25 Globulin 5.4 g/dL (2.5-4.5) H 01/16/21 15:25 Albumin/Globulin Ratio 0.3 Ratio (1.1-2.1) L 01/16/21 15:25 SARS CoV-2 RNA Rapid ADELINA Negative (NEGATIVE) 01/16/21 16:46 Blood Type O NEGATIVE 01/16/21 15:25 Antibody Screen Negative 01/16/21 15:25 Crossmatch See Detail 01/16/21 15:25 Other Results Comments: PATIENT TYPED AND CROSS FOR 2 UNITS OF PRPC XRAY X-ray Results: PORTABLE CHEST XRAY NEGATIVE Opioid Opioid Risk Tool Age (Shakir box if 16-45): No History of Preadolescent Sexual Abuse: No Total: 0 Total Score Risk Category: Low Risk Copyright: Noe MALONEY predicting aberrant behaviors Diagnosis Discharge Problem: Symptomatic anemia, Acute hypokalemia
[2021-01-16] MEDS ORDERED: NS 1000 ML 1,000 ML ONE (15:26)
[2021-01-16 15:35] LABS: BASOPHILS % (AUTO) 0.3 % (0.2-1.0); EOSINOPHILS # (AUTO) 0.1 x10^3/uL (0.0-0.2); EOSINOPHILS % (AUTO) 0.7 % (0.9-2.9); HEMOGLOBIN 7.2 g/dL (13.5-18.0); LYMPHOCYTES # (AUTO) 0.8 X10^3/uL (1.3-2.9); LYMPHOCYTES % (AUTO) 5.6 % (21.0-51.0); MEAN CORPUSCULAR HEMOGLOBIN 26.9 pg (27.0-34.0); MEAN CORPUSCULAR HGB CONC 32.6 g/dL (33.0-35.0); MEAN CORPUSCULAR VOLUME 82.6 fL (80.0-100.0); MEAN PLATELET VOLUME 6.8 fL (7.4-11.0); MONOCYTES # (AUTO) 1.3 x10^3/uL (0.3-0.8); MONOCYTES % (AUTO) 9.6 % (0.0-13.0); NEUTROPHILS # (AUTO) 11.5 x10^3/uL (2.2-4.8); NEUTROPHILS % (AUTO) 83.8 % (42.0-75.0); PLATELET COUNT 395 X10^3/uL (150.0-450.0); RED BLOOD COUNT 2.67 X10^6/uL (4.7-6.0); RED CELL DISTRIBUTION WIDTH 19.2 % (11.6-16.5); WHITE BLOOD COUNT 13.7 X10^3/uL (3.6-10.0)
[2021-01-16 15:48] LABS: ALANINE AMINOTRANSFERASE 43 Units/L (12-78); ALBUMIN 1.8 g/dL (3.4-5.0); ALKALINE PHOSPHATASE 282 Units/L (46-116); ASPARTATE AMINO TRANSFERASE 30 Units/L (15-37); BLOOD UREA NITROGEN 13 mg/dL (7-18); CALCIUM 8.9 mg/dL (8.5-10.1); CARBON DIOXIDE 27.5 mmol/L (21-32); CHLORIDE 97 mmol/L (98-107); COR CA(FOR HYPOALB) 10.7 mg/dL (8.5-10.1); COR NA(FOR HYPERGLY) 134 mmol/L (136-145); CREATININE 0.97 mg/dL (0.70-1.30); SODIUM 133 mmol/L (136-145); TOTAL PROTEIN 7.2 g/dL (6.4-8.2); eGFR NON BLACK RACES > 60 (>60)
--- NOTE | 2021-01-16 15:48 | RAD ---
HISTORYCOUGHSTUDYCHEST, 1 VIEWCOMPARISONPortable chest December 01, 2020.FINDINGSThe trachea is midline. The cardiac silhouette is unremarkable. A left subclavian port is in place tip in the superior vena cava. The lungs are clear without focal infiltrate or effusion. A calcified granuloma seen in the left midlung field and calcified left hilar lymph nodes are also observed from old granulomatous disease. The bony thorax is unremarkable.IMPRESSIONNo acute cardiopulmonary disease and no significant interval change from the last film of December 01, 2020.Electronically signed by: RADHA CLEANING (January 16, 2021 15:46:48)
[2021-01-16] MEDS ORDERED: K-DUR TAB 20 MEQ PO ONE ×2 (16:09→16:50)
[2021-01-16] MEDS ORDERED: NS 1000 ML 1,000 ML IV SCH (18:00)
[2021-01-16 20:07] LABS: BILIRUBIN,URINE NEGATIVE (NEGATIVE); BLOOD/HEMOGLOBIN,URINE 3+ (NEGATIVE); GLUCOSE, URINE NEGATIVE (NEGATIVE); KETONES,URINE NEGATIVE (NEGATIVE); LEUKOCYTE ESTERASE ,URINE 3+ (NEGATIVE); NITRITES,URINE NEGATIVE (NEGATIVE); PH,URINE 6.5 (5.0 - 8.0); PROTEIN,URINE 2+ (NEGATIVE); UROBILINOGEN,URINE NORMAL (NORMAL)
[2021-01-16 20:09] LABS: APPEARANCE,URINE CLOUDY (CLEAR); BACTERIA,URINE 3+ /HPF (NEGATIVE); COLOR,URINE STRAW (YELLOW); RBC,URINE 20-30 /HPF (0-3); SQUAMOUS EPITHELIAL CELL,UR FEW /HPF (NEGATIVE)
[2021-01-16 20:10] LABS: MUCUS,URINE FEW /HPF (NEGATIVE); YEAST,URINE FEW /HPF (NEGATIVE)
[2021-01-16] MEDS: NEURONTIN CAP 300 MG PO SCH (20:43)
[2021-01-16] MEDS: COLACE CAP 100 MG PO SCH (20:43)
[2021-01-16] MEDS: CYMBALTA PO SCH (20:43)
[2021-01-16] MEDS ORDERED: REQUIP PO SCH (21:00)
[2021-01-16] MEDS ORDERED: ZOFRAN INJ 4 MG VIAL IVP PRN (21:06)
[2021-01-16] MEDS: DILAUDID INJ IVP PRN (21:35)
[2021-01-16] MEDS ORDERED: NS 250 ML IV 250 ML IV ONE (21:57)
[2021-01-17] MEDS: DILAUDID INJ IVP PRN ×2 (03:42→10:12)
[2021-01-17 04:57] LABS: HEMATOCRIT 28.1 % (42.0-54.0); HEMOGLOBIN 9.3 g/dL (13.5-18.0)
[2021-01-17] MEDS ORDERED: HEMOCYTE-PLUS ONE (07:49)
[2021-01-17] MEDS: COLACE CAP 100 MG PO SCH (08:20)
[2021-01-17] MEDS: CYMBALTA PO SCH (08:21)
[2021-01-17] MEDS: NEURONTIN CAP 300 MG PO SCH (08:21)
[2021-01-17 08:33] VITALS: BP 125/59
[2021-01-17] MEDS ORDERED: HEMOCYTE-PLUS PO SCH (09:00)
== END 2021-01-17 11:40 | disposition home health service (06) ==
LOC: ER 14:21 → MED/SURG 14:21
PROVIDERS: ADMIT Obstetrics & Gynecology Obstetrics; ATTEND Obstetrics & Gynecology Obstetrics
DX: D64.89 Other specified anemias; Z93.6 Other artificial openings of urinary tract status; E87.6 Hypokalemia; R53.1 Weakness; Z20.822 Contact with and (suspected) exposure to COVID-19; Z93.3 Colostomy status; Z92.3 Personal history of irradiation; C20 Malignant neoplasm of rectum; E87.1 Hypo-osmolality and hyponatremia; Z92.21 Personal history of antineoplastic chemotherapy

== ENCOUNTER 2021-04-12 12:33 | Inpatient (IN) ==
[2021-04-12] MEDS ORDERED: NS 1000 ML 1,000 ML IV ONE ×3 (15:13→19:14)
--- NOTE | 2021-04-12 15:13 | DR.GENAD ---
HPI Time Seen Time Seen by Provider: 04/12/21 15:02 PCP Primary Care Physician: DE LA TORRE Complaint/Symptoms Chief Complaint Doctors Comments: 60 y/o male presents feeling ill x 2 weeks. H/o colon cancer in the past, underwent colon resection, colostomy. Also has ureostomy tubes. Has had N/V, decreased appetite. Has now output form colostomy recently. Having increasing weakness. Denies abdominal pain. Chief Complaint:: N/V, WEAKNESS X2 WEEKS, DECREASED APPETITE, UNABLE TO EAT OR TAKE MEDS. LAST BM APPROX. A WEEK AGO H/O COLORECTAL CA COVID-19 Coronavirus risk:travel/contact w/high risk person: No Nurses notes reviewed Nurses Notes Review: Yes Source History Provided: Patient and Family Member Mode of Arrival Mode of Arrival: Wheelchair Timing Onset of Chief Complaint: 03/29/21 Duration Duration: Since Onset How lon Duration: Weeks Severity Severity: Moderate Modifying Factors Worsens:: nothing Improves:: nothing PMH PMH Past Medical History: Yes Past Medical History: Arthritis Past Medical History Comment: H/O COLON CA, URINARY RETENTION (BILARTERAL PERCUTANEOUS KIDNEY DRAINAGE SYSTEM Past Surgical History: Yes Surgical History: Abdominal Surgery, Cholecystectomy and Other Past Surgical History Comment: COLOSTOMY, KIDNEY DRAINAGE SYSTEM INSERTION, PAC Family History History of Family Medical Conditions: Yes Family Medical History: Diabetes Mellitus Social History Does patient currently use any type of tobacco product: Yes Have you used tobacco products in the last 12 months: Yes Type of Tobacco Use: Cigarettes How many years tobacco product used: 45 Does any household member use tobacco: No Alcohol Use: None Do you use any recreational Drugs:: No Lives With: Family Lives Where: Home Infectious screening In the last 2 months have you had wt loss of >10#?: YES Have you had fever, night sweats or hemotysis?: No Have you traveled outside the country in the last 6 months?: No Isolation: Standard ROS Review of Systems Constitutional: Malaise and Weakness Eyes: No Symptoms Reported ENTM: No Symptoms Reported Respiratoy: No Symptoms Reported Cardiovascular: No Symptoms Reported Gastrointestinal/Abdominal: Constipation, Nausea and Vomiting Genitourinary: Other (decreased urinary output) Neurological: Weakness Musculoskeletal: No Symptoms Reported Integumentary: No Symptoms Reported Hematologic/Lymphatic: No Symptoms Reported Endocrine: No Symptoms Reported Psychiatric: No Symptoms Reported All Other Systems: Reviewed and Negative PE Vital Signs Vitals: Temperature 97.2 F Pulse Rate 107 Respiratory Rate 16 Blood Pressure [Left Arm] 114/57 Blood Pressure [Right Arm] 125/59 Blood Pressure 135/74 O2 Sat by Pulse Oximetry 98 General Limitations: No Limitations General Appearance: Alert and In No Apparent Distress Head Head Exam: Normal Inspection Eyes Eye exam: Normal Appearance ENT ENT Exam: Normal Exam Mouth Exam: Normal Inspection Neck Neck Exam: Normal Inspection and Full ROM Chest Chest Inspection: Normal Inspection; negative Tenderness Respiratory Respiratory Exam: Normal Lung Sounds Bilat; negative Accessory Muscle Use and Respiratory Distress Respiratory Exam: Bilateral: Clear to Auscultation Cardiovascular Cardiovascular Exam: Regular Rate, Normal Rhythm, Tachycardia and Normal Heart Sounds Abdominal Exam Abdominal Exam: Normal Inspection, Normal Bowel Sounds and Tenderness (right side. Has increased tympany to percussion. No rebound. Empty bag.) Extremities Extremities Exam: Normal Inspection and Full ROM; negative Edema Back Back Exam: Normal Inspection Neurologic Neurological Exam: Alert, Oriented X3 and CN II-XII Intact; negative Motor Sensory Deficit Psychiatric Psychiatric Exam: Normal Affect Skin Skin Exam: Warm and Dry MDM Differential Diagnosis Differential Diagnosis: bowel obstrucion, diverticulitis, eletrolyte abn, constipation COURSE Treatment Treatment: 2 weeks feeling ill, now with contipation, decreased urinary output. Appears dehydrated with possible bowel obstruction. Given IV fluids, w/u initiated. 1845 - w/u c/w SBO. Does have elevated WBC. Discussed with his attending, Dr. De La Torre. Will admit. Pt given IV fluids, antibiotics here. Recommend NG tube placement to suction. 2140 - NG tube placed. KUB shows good position. Baseline orders written for. Nurses trying to reconcile meds, daughter to contact nurse with updated list. 5 - list of home meds obtained, nothing pt needs on a daily basis, can't take with NG tube down. Floor instructed to call me tonight for any additional orders. Critical Care Notes Total Time (mins): 35 Critical Diagnosis: Small bowel obstruction Critical Interventions: IV fluids, IV antibiotics, NG tube ordered, discussed findings with pt/attending, orders written for w/u & admission. ROR Labs Reviewed Laboratory Results Reviewed?: Yes Result Diagrams: 04/12/21 14:59 04/12/21 14:59 Laboratory: WBC 23.8 X10^3/uL (3.6-10.0) H 04/12/21 14:59 RBC 3.85 X10^6/uL (4.7-6.0) L 04/12/21 14:59 Hgb 11.7 g/dL (13.5-18.0) L 04/12/21 14:59 Hct 34.9 % (42.0-54.0) L 04/12/21 14:59 MCV 90.8 fL (80.0-100.0) 04/12/21 14:59 MCH 30.5 pg (27.0-34.0) 04/12/21 14:59 MCHC 33.6 g/dL (33.0-35.0) 04/12/21 14:59 RDW 17.6 % (11.6-16.5) H 04/12/21 14:59 Plt Count 682 X10^3/uL (150.0-450.0) H 04/12/21 14:59 Plt Count Comment Increased (ADEQUATE) 04/12/21 14:59 MPV 7.8 fL (7.4-11.0) 04/12/21 14:59 Neut % (Auto) 87.9 % (42.0-75.0) H 04/12/21 14:59 Lymph % (Auto) 4.2 % (21.0-51.0) L 04/12/21 14:59 [place] % (Auto) 7.0 % (0.0-13.0) 04/12/21 14:59 Eos % (Auto) 0.2 % (0.9-2.9) L 04/12/21 14:59 Baso % (Auto) 0.7 % (0.2-1.0) 04/12/21 14:59 Neut # (Auto) 20.9 x10^3/uL (2.2-4.8) H 04/12/21 14:59 Lymph # (Auto) 1.0 X10^3/uL (1.3-2.9) L 04/12/21 14:59 [place] # (Auto) 1.7 x10^3/uL (0.3-0.8) H 04/12/21 14:59 Eos # (Auto) 0.1 x10^3/uL (0.0-0.2) 04/12/21 14:59 Baso # (Auto) 0.2 X10^3/uL (0.0-0.1) H 04/12/21 14:59 Absolute Nucleated RBC 0.0 /100WBC 04/12/21 14:59 Total Counted 100 04/12/21 14:59 Neutrophils % (Manual) 92 % (39-76) H 04/12/21 14:59 Band Neutrophils % 1 % (0-10) 04/12/21 14:59 Lymphocytes % (Manual) 3 % (13-43) L 04/12/21 14:59 Monocytes % (Manual) 4 % (4-9) 04/12/21 14:59 Plt Morphology Comment Normal (NORMAL) 04/12/21 14:59 RBC Morphology Normal (NORMAL) 04/12/21 14:59 Sodium 131 mmol/L (136-145) L 04/12/21 14:59 Corrected Sodium TNP 04/12/21 14:59 Potassium 3.4 mmol/L (3.5-5.1) L 04/12/21 14:59 Chloride 91 mmol/L (98-107) L 04/12/21 14:59 Carbon Dioxide 33.7 mmol/L (21-32) H 04/12/21 14:59 BUN 23 mg/dL (7-18) H 04/12/21 14:59 Creatinine 1.18 mg/dL (0.70-1.30) 04/12/21 14:59 Est GFR (MDRD) Af Amer > 60 (>60) 04/12/21 14:59 Est GFR (MDRD) Non-Af > 60 (>60) 04/12/21 14:59 Glucose 109 mg/dL (65-99) H 04/12/21 14:59 Calcium 9.0 mg/dL (8.5-10.1) 04/12/21 14:59 Corrected Calcium 10.5 mg/dL (8.5-10.1) H 04/12/21 14:59 Total Bilirubin 0.60 mg/dL (0.2-1.0) 04/12/21 14:59 AST 46 Units/L (15-37) H 04/12/21 14:59 ALT 74 Units/L (12-78) 04/12/21 14:59 Alkaline Phosphatase 214 Units/L (46-116) H 04/12/21 14:59 Total Protein 7.6 g/dL (6.4-8.2) 04/12/21 14:59 Albumin 2.1 g/dL (3.4-5.0) L 04/12/21 14:59 Globulin 5.5 g/dL (2.5-4.5) H 04/12/21 14:59 Albumin/Globulin Ratio 0.4 Ratio (1.1-2.1) L 04/12/21 14:59 Lipase 61 Units/L (73-393) L 04/12/21 14:59 SARS-CoV-2 (PCR) Negative (NEGATIVE) 04/12/21 15:30 Influenza Type A (PCR) Negative (NEGATIVE) 04/12/21 15:30 Influenza Type B (PCR) Negative (NEGATIVE) 04/12/21 15:30 RSV (PCR) Negative (NEGATIVE) 04/12/21 15:30 Opioid Opioid Risk Tool Age (Shakir box if 16-45): No History of Preadolescent Sexual Abuse: No Total: 0 Total Score Risk Category: Low Risk Copyright: Noe MALONEY predicting aberrant behaviors Diagnosis Discharge Problem: Small bowel obstruction
[2021-04-12] MEDS ORDERED: NS 1000 ML 1,000 ML ONE ×3 (15:16→22:27)
[2021-04-12 15:26] LABS: BASOPHILS # (AUTO) 0.2 X10^3/uL (0.0-0.1); BASOPHILS % (AUTO) 0.7 % (0.2-1.0); EOSINOPHILS # (AUTO) 0.1 x10^3/uL (0.0-0.2); EOSINOPHILS % (AUTO) 0.2 % (0.9-2.9); HEMATOCRIT 34.9 % (42.0-54.0); HEMOGLOBIN 11.7 g/dL (13.5-18.0); LYMPHOCYTES % (AUTO) 4.2 % (21.0-51.0); MEAN CORPUSCULAR HEMOGLOBIN 30.5 pg (27.0-34.0); MEAN CORPUSCULAR HGB CONC 33.6 g/dL (33.0-35.0); MEAN CORPUSCULAR VOLUME 90.8 fL (80.0-100.0); MEAN PLATELET VOLUME 7.8 fL (7.4-11.0); MONOCYTES # (AUTO) 1.7 x10^3/uL (0.3-0.8); NEUTROPHILS # (AUTO) 20.9 x10^3/uL (2.2-4.8); NEUTROPHILS % (AUTO) 87.9 % (42.0-75.0); PLATELET COUNT 682 X10^3/uL (150.0-450.0); RED BLOOD COUNT 3.85 X10^6/uL (4.7-6.0); RED CELL DISTRIBUTION WIDTH 17.6 % (11.6-16.5); WHITE BLOOD COUNT 23.8 X10^3/uL (3.6-10.0)
[2021-04-12 15:36] LABS: BAND NEUTROPHILS % 1 % (0-10); BLOOD UREA NITROGEN 23 mg/dL (7-18); LIPASE 61 Units/L (73-393); PLATELET MORPHOLOGY COMMENT NORMAL (NORMAL); eGFR NON BLACK RACES > 60 (>60)
--- NOTE | 2021-04-12 16:12 | RAD ---
HISTORYN/V, WEAKNESS X2 WEEKS, DECREASED APPETITE, UNABLE TO EAT OR TAKE MEDS. LAST BM APPROX. A WEEK AGO H/O COLORECTAL CA Relevant Clinical InformationSTUDYACUTE ABDOMEN SERIESCOMPARISONAbdominal films October 12, 2020FINDINGSThe trachea is midline. The cardiac silhouette is [unremarkable]. A left subclavian port is in place tip in the superior vena cava in good position. [The lungs are clear without focal mass or consolidation. There is no effusion or pneumothorax.] [The bony thorax is unremarkable].Flat plate and upright evaluation of the abdomen demonstrates new distended small bowel loops in the left mid abdomen. The largest of these measures 5.2 cm in diameter. Stool is seen in the right colon the small bowel loop has a diameter of 5.82 cm.. There is no pneumoperitoneum. No pathological soft tissue mass or calcification can be observed. New nephrostomy catheters are in place since the prior exam of October 12, 2020. Surgical clips from cholecystectomy are observed. The bony structures are grossly intact.IMPRESSION1. [No acute cardiopulmonary disease.]2. Distended small bowel loops in the left mid and left upper quadrant unchanged from the October 12, 2020 film. There is stool in the right colon. Findings are due to either ileus versus early small bowel obstruction. Recommend follow-up in a patient with known colorectal carcinoma.Electronically signed by: RADHA CLEANING (Apr 12, 2021 16:10:30)
[2021-04-12 16:42] LABS: ALANINE AMINOTRANSFERASE 74 Units/L (12-78); ALBUMIN 2.1 g/dL (3.4-5.0); ALKALINE PHOSPHATASE 214 Units/L (46-116); ASPARTATE AMINO TRANSFERASE 46 Units/L (15-37); CARBON DIOXIDE 33.7 mmol/L (21-32); CHLORIDE 91 mmol/L (98-107); COR CA(FOR HYPOALB) 10.5 mg/dL (8.5-10.1); CREATININE 1.18 mg/dL (0.70-1.30); SODIUM 131 mmol/L (136-145); TOTAL PROTEIN 7.6 g/dL (6.4-8.2)
[2021-04-12] MEDS ORDERED: FLAGYL IV PREMIX 500 MG BAG 500 MG/100 ML BAG IV ONE ×2 (18:04→18:16)
[2021-04-12] MEDS ORDERED: LEVAQUIN PREMIX IV 750 MG 750 MG/150 ML BAG IV ONE ×3 (18:04→19:32)
--- NOTE | 2021-04-12 18:12 | CT ---
EXAM: CT ABDOMEN AND PELVIS WITHOUT INTRAVENOUS CONTRASTHISTORY: Weakness. History of colon cancer.TECHNIQUE: Spiral axial CT images are obtained through the abdomen and pelvis without the administration of intravenous contrast. Additional coronal and sagittal reformatted images are reconstructed.DOSIMETRY: Total DLP 394 mGycm; CTDI 7.9 mGyCOMPARISON: CT abdomen and pelvis dated October 15, 2020.FINDINGS:GASTROINTESTINAL TRACT: Status post interval partial colectomy with left colostomy placement. Abundant fecal material is seen within the large bowel loops in keeping with constipation in the appropriate clinical setting. Findings consistent with high-grade distal small bowel obstruction, with up to 4.8 cm dilated fluid-filled small bowel loops within the abdomen and pelvis, and completely collapsed distal small bowel loops; transitional bowel loops are seen in the posterior left lower abdomen (axial image 50?61; coronal image 18?26); obstructing etiology is not visualized; rule out adhesions. No evidence for pneumatosis intestinalis, portal venous air or free intraperitoneal air. No evidence for colitis, diverticulitis, or appendicitis is seen.GENITOURINARY SYSTEM: Status post interval placement of bilateral percutaneous nephrostomies, in adequate positions. The kidneys are unremarkable. There is no ureteral calculus or stigmata of obstructive uropathy. The urinary bladder is grossly unremarkable for a non-dedicated exam.CT ABDOMEN: Severe aortoiliac atherosclerotic disease, without aneurysm formation. Status post cholecystectomy. Multiple scattered calcified granulomas are seen in the liver and spleen, in keeping with chronic sequela of prior granulomatous disease. The pancreas, adrenal glands, and inferior vena cava are within normal limits for a noncontrast CT scan. There is no intra-abdominal or retroperitoneal lymphadenopathy, free fluid, or free air seen. No abdominal herniation is noted.CT PELVIS: The visualized bony structures are within normal limits. No pelvic sidewall or inguinal lymphadenopathy is seen. No inguinal herniation is noted. No free fluid or free air is seen.LUNG BASES: Calcified left lower lobe granuloma in keeping with chronic sequela of prior granulomatous disease. The lung bases are otherwise clear.IMPRESSION:1. Status post interval partial colectomy with left colostomy placement.2. Abundant fecal material is seen within the large bowel loops in keeping with constipation in the appropriate clinical setting.3. High-grade distal SBO, with up to 4.8 cm dilated fluid-filled small bowel loops within the abdomen and pelvis, and completely collapsed distal small bowel loops; transitional bowel loops are seen in the posterior left lower abdomen (axial image 50?61; coronal image 18?26); obstructing etiology is not visualized; rule out adhesions.4. No evidence for pneumatosis intestinalis, portal venous air or free intraperitoneal air.5. No evidence for bowel herniation, colitis, diverticulitis, or appendicitis is seen.6. Status post bilateral nephrostomy placements; no evidence for renal stone disease or obstructive uropathy.7. No free fluid, free air, mass lesions, or lymphadenopathy seen.8. Evidence for prior granulomatous disease with calcified granulomas in the spleen, liver, and left lower lobe.Electronically signed by: Lindsay Quiñonez (Apr 12, 2021 18:10:39)
[2021-04-12] MEDS ORDERED: FENTANYL INJ 250 mcg IVP ONE (19:12)
[2021-04-12] MEDS ORDERED: DILAUDID INJ IVP ONE (20:36)
[2021-04-12] MEDS ORDERED: DILAUDID INJ ONE (20:57)
--- NOTE | 2021-04-12 21:17 | RAD ---
HISTORYNG- TUBE PLACEMENTSTUDYKUBCOMPARISONNoneFINDINGSThe enteric tube is in the upper left abdomen. At this locatio n it is probably at the esophagogastric junction. But you could advance this by 5-10 cm to be more ap propriately positioned in the body of the stomach.Dilated small bowel is present. Bilateral nephrosto my tubes.Surgical clips are present in the right upper abdomen, probably from a cholecystectomy.IMPRE SSION1. Enteric tube in the upper left abdomen, see noteElectronically signed by: Mauri Browning ( Apr 12, 2021 21:15:53)
[2021-04-13 00:15] LABS: BILIRUBIN,URINE NEGATIVE (NEGATIVE); BLOOD/HEMOGLOBIN,URINE 5+ (NEGATIVE); GLUCOSE, URINE NEGATIVE (NEGATIVE); KETONES,URINE 1+ (NEGATIVE); LEUKOCYTE ESTERASE ,URINE 3+ (NEGATIVE); NITRITES,URINE POSITIVE (NEGATIVE); PH,URINE 6.5 (5.0 - 8.0); PROTEIN,URINE 3+ (NEGATIVE); UROBILINOGEN,URINE NORMAL (NORMAL)
[2021-04-13] MEDS ORDERED: D5W 1000 ML IV 1,000 ML IV ONE (00:19)
[2021-04-13] MEDS ORDERED: FLAGYL IV PREMIX 500 MG BAG 500 MG/100 ML BAG IV ONE (00:19)
[2021-04-13 00:21] LABS: APPEARANCE,URINE CLOUDY (CLEAR); COLOR,URINE PALE YELLOW (YELLOW)
[2021-04-13 00:22] LABS: BACTERIA,URINE 3+ /HPF (NEGATIVE); SQUAMOUS EPITHELIAL CELL,UR RARE /HPF (NEGATIVE)
[2021-04-13] MEDS: D5 NS 1000 ML 1,000 ML IV SCH ×3 (00:31→07:12)
--- NOTE | 2021-04-13 00:37 | RAD ---
HISTORYNG TUBE PLACEMENT HX COLON CANCER. SX BOWEL RESECTION, [id number]/29/2021FINDINGSEvaluation of the abdomen demonstrates a several mildl y dilated loops of small bowel suggesting early or partial obstruction. Bilateral percutaneous nephro stomy tubes. There are surgical clips in the right upper quadrant. Nasogastric tube is present with t ip in the gastric fundus. No pathological soft tissue mass or calcification can be observed. The bon y structures are grossly intact.IMPRESSIONNG tube tip in gastric fundus.Several mildly dilated loops of small bowel suggesting early or partial obstruction.Electronically signed by: Tan Palacios (Mar 172020 00:35:39)
[2021-04-13 01:47] VITALS: BMI 16.9
[2021-04-13] MEDS ORDERED: DILAUDID INJ ONE (02:08)
[2021-04-13] MEDS: DILAUDID INJ IVP PRN ×5 (02:16→22:20)
[2021-04-13] MEDS: FLAGYL IV PREMIX 500 MG BAG 500 MG/100 ML BAG IV SCH ×4 (02:53→21:21)
[2021-04-13 06:04] LABS: BASOPHILS % (AUTO) 0.2 % (0.2-1.0); EOSINOPHILS % (AUTO) 0.1 % (0.9-2.9); HEMATOCRIT 28.2 % (42.0-54.0); HEMOGLOBIN 9.4 g/dL (13.5-18.0); LYMPHOCYTES % (AUTO) 5.1 % (21.0-51.0); MEAN CORPUSCULAR HEMOGLOBIN 30.3 pg (27.0-34.0); MEAN CORPUSCULAR HGB CONC 33.5 g/dL (33.0-35.0); MEAN CORPUSCULAR VOLUME 90.6 fL (80.0-100.0); MEAN PLATELET VOLUME 7.7 fL (7.4-11.0); MONOCYTES % (AUTO) 5.2 % (0.0-13.0); NEUTROPHILS # (AUTO) 16.8 x10^3/uL (2.2-4.8); NEUTROPHILS % (AUTO) 89.4 % (42.0-75.0); PLATELET COUNT 570 X10^3/uL (150.0-450.0); RED BLOOD COUNT 3.11 X10^6/uL (4.7-6.0); RED CELL DISTRIBUTION WIDTH 17.3 % (11.6-16.5); WHITE BLOOD COUNT 18.8 X10^3/uL (3.6-10.0)
[2021-04-13 06:26] LABS: ALANINE AMINOTRANSFERASE 56 Units/L (12-78); ALBUMIN 1.8 g/dL (3.4-5.0); ALKALINE PHOSPHATASE 169 Units/L (46-116); ASPARTATE AMINO TRANSFERASE 32 Units/L (15-37); BLOOD UREA NITROGEN 17 mg/dL (7-18); CALCIUM 8.3 mg/dL (8.5-10.1); CARBON DIOXIDE 29.7 mmol/L (21-32); CHLORIDE 99 mmol/L (98-107); COR CA(FOR HYPOALB) 10.1 mg/dL (8.5-10.1); COR NA(FOR HYPERGLY) 135 mmol/L (136-145); CREATININE 0.96 mg/dL (0.70-1.30); SODIUM 135 mmol/L (136-145); TOTAL PROTEIN 6.5 g/dL (6.4-8.2); eGFR NON BLACK RACES > 60 (>60)
[2021-04-13] MEDS ORDERED: NULYTELY or GO-LYTELY PO SCH (11:00)
[2021-04-13] MEDS: COLACE SYRUP 100 MG UDC NG SCH ×4 (12:18→21:21)
[2021-04-13] MEDS: NS 1000 ML 1,000 ML IV SCH ×2 (12:18→21:21)
[2021-04-13] MEDS ORDERED: KLOR-CON PO PRN (16:05)
[2021-04-13] MEDS ORDERED: MICRO K EXTEN CAP 10 MEQ PO PRN (16:05)
[2021-04-13] MEDS ORDERED: K-DUR TAB 20 MEQ PO PRN (16:05)
[2021-04-13] MEDS ORDERED: POTASSIUM CHL 60 MEQ/NS 0.45% 500 ML IV PRN (16:05)
[2021-04-13] MEDS ORDERED: POTASSIUM CHL 40 MEQ/NS 0.45% 500 ML IV PRN (16:05)
[2021-04-13] MEDS ORDERED: POTASSIUM CHLORIDE LIQ 20 MEQ UDC PO PRN (16:05)
[2021-04-13] MEDS ORDERED: LEVAQUIN PREMIX IV 750 MG 750 MG/150 ML BAG IV SCH (18:00)
[2021-04-13] MEDS: K-RIDER 10 MEQ/NS 100 ML 10 MEQ/100 ML BAG IV PRN (21:22)
[2021-04-14] MEDS: K-RIDER 10 MEQ/NS 100 ML 10 MEQ/100 ML BAG IV PRN ×3 (00:12→07:22)
[2021-04-14] MEDS: DILAUDID INJ IVP PRN ×3 (02:15→10:27)
[2021-04-14] MEDS: NS 1000 ML 1,000 ML IV SCH (03:05)
[2021-04-14] MEDS: FLAGYL IV PREMIX 500 MG BAG 500 MG/100 ML BAG IV SCH ×2 (03:05→10:38)
[2021-04-14 07:01] LABS: BASOPHILS # (AUTO) 0.1 X10^3/uL (0.0-0.1); BASOPHILS % (AUTO) 0.6 % (0.2-1.0); EOSINOPHILS % (AUTO) 0.1 % (0.9-2.9); HEMATOCRIT 27.8 % (42.0-54.0); HEMOGLOBIN 9.3 g/dL (13.5-18.0); LYMPHOCYTES # (AUTO) 1.3 X10^3/uL (1.3-2.9); LYMPHOCYTES % (AUTO) 7.3 % (21.0-51.0); MEAN CORPUSCULAR HEMOGLOBIN 30.3 pg (27.0-34.0); MEAN CORPUSCULAR HGB CONC 33.5 g/dL (33.0-35.0); MEAN CORPUSCULAR VOLUME 90.5 fL (80.0-100.0); MEAN PLATELET VOLUME 7.7 fL (7.4-11.0); MONOCYTES # (AUTO) 1.4 x10^3/uL (0.3-0.8); MONOCYTES % (AUTO) 8.1 % (0.0-13.0); NEUTROPHILS # (AUTO) 14.8 x10^3/uL (2.2-4.8); NEUTROPHILS % (AUTO) 83.9 % (42.0-75.0); PLATELET COUNT 531 X10^3/uL (150.0-450.0); RED BLOOD COUNT 3.07 X10^6/uL (4.7-6.0); RED CELL DISTRIBUTION WIDTH 17.5 % (11.6-16.5); WHITE BLOOD COUNT 17.7 X10^3/uL (3.6-10.0)
[2021-04-14 07:32] LABS: ALANINE AMINOTRANSFERASE 40 Units/L (12-78); ALBUMIN 1.8 g/dL (3.4-5.0); ALKALINE PHOSPHATASE 153 Units/L (46-116); ASPARTATE AMINO TRANSFERASE 24 Units/L (15-37); BLOOD UREA NITROGEN 11 mg/dL (7-18); CALCIUM 8.5 mg/dL (8.5-10.1); CARBON DIOXIDE 31.2 mmol/L (21-32); CHLORIDE 98 mmol/L (98-107); COR CA(FOR HYPOALB) 10.3 mg/dL (8.5-10.1); CREATININE 0.93 mg/dL (0.70-1.30); SODIUM 137 mmol/L (136-145); TOTAL PROTEIN 6.4 g/dL (6.4-8.2); eGFR NON BLACK RACES > 60 (>60)
[2021-04-14 08:39] VITALS: BP 114/56
[2021-04-14] MEDS ORDERED: K-DUR TAB 20 MEQ PO SCH (09:00)
--- NOTE | 2021-04-14 09:26 | RAD ---
HISTORYFECAL RETENTION COLON WITH OBSTRUCTIONSTUDYACUTE ABDOMEN [id number]/30/2021FINDINGSCardiomediastinal silhouette within normal limits. Lungs grossly cl ear. No sizable effusion, pulmonary edema, or visible pneumothorax. Left subclavian Port-A-Cath. Ente tye tube projects over the stomach. Right-sided colonic stool no longer seen. Dilated small bowel is increased from prior without definite large bowel gas seen. Bilateral percutaneous nephrostomy tubes. Bladder probe or catheter.IMPRESSION1. [Worsening small bowel obstruction.]Electronically signed by: Graham Sosa (Apr 14, 2021 09:24:09)
[2021-04-14] MEDS: COLACE SYRUP 100 MG UDC NG SCH (10:26)
== END 2021-04-14 10:50 | disposition home health service (06) | DRG 389 ==
LOC: ER 12:51 → MED/SURG 23:26
PROVIDERS: ADMIT Obstetrics & Gynecology Obstetrics; ATTEND Obstetrics & Gynecology Obstetrics
DX: N39.0 Urinary tract infection, site not specified; B96.29 Other Escherichia coli [E. coli] as the cause of diseases classified elsewhere; Z20.822 Contact with and (suspected) exposure to COVID-19; K59.09 Other constipation; E86.0 Dehydration; C19 Malignant neoplasm of rectosigmoid junction; K56.690 Other partial intestinal obstruction; N17.8 Other acute kidney failure

== ENCOUNTER 2021-04-23 17:40 | Inpatient (IN) ==
--- NOTE | 2021-04-23 17:53 | DR.EXTPAIN ---
HPI Time seen Time Seen by Provider: 04/23/21 17:51 HPI Comment HPI Comment: PATIENT WITH HISTORY OF COLON CARCINOMA, COLON RESECTION, POST CHEMOTHERAPY, COMPLAINS OF FREQUENT EMESIS X 20 EPISODES OVER 3 DAYS, ASSOCIATED WITH ABDOMINAL PAIN, CONSTIPATION OF COLOSTOMY. STATES MAY HAVE HAD SEIZURE IN B ATHTUB Complaint/Symptoms Chief Complaint Doctor Comments: SEIZURE IN BATHROOM Nurses notes reviewed Nurses Notes Review: Yes Source History Provided: Patient and EMS Mode of arrival Mode of Arrival: EMS Timing Onset of Chief Complaint: 04/23/21 Associated signs and symptoms Associated Signs and Symptoms: Nausea and Vomiting Other history Other History: HISTORY OF COLON CARCINOMA PMH PMH Past Medical History: Arthritis Past Surgical History: Yes Surgical History: Abdominal Surgery, Bowel Resection, Cholecystectomy and Other Family History Family Medical History: Cancer Social History Do you use any recreational Drugs:: No ROS Review of Systems Constitutional: Weakness Eyes: No Symptoms Reported ENTM: No Symptoms Reported Respiratoy: No Symptoms Reported Cardiovascular: No Symptoms Reported Gastrointestinal/Abdominal: See HPI, Abdominal Pain, Nausea and Vomiting Genitourinary: No Symptoms Reported Neurological: No Symptoms Reported Musculoskeletal: No Symptoms Reported Integumentary: No Symptoms Reported Hematologic/Lymphatic: No Symptoms Reported Endocrine: No Symptoms Reported Psychiatric: No Symptoms Reported All Other Systems: Reviewed and Negative PE Vital Signs Vitals: Temperature 97.1 F Pulse Rate 92 Respiratory Rate 27 Blood Pressure [Left Arm] 114/56 Blood Pressure 123/58 O2 Sat by Pulse Oximetry 94 General General Appearance: Alert and In No Apparent Distress Head Head Exam: Normal Inspection and Atraumatic Eyes Eye exam: Normal Appearance and PERRL Neck Neck Exam: Normal Inspection Chest Chest Inspection: Normal Inspection and Symmetric Chest Wall Rise Respiratory Respiratory Exam: Normal Lung Sounds Bilat Respiratory Exam: Bilateral: Clear to Auscultation Cardiovascular Cardiovascular Exam: Regular Rate and Normal Rhythm Abdominal Exam Abdominal Exam: Normal Inspection and Hyperactive Bowel Sounds Abdominal Tenderness: Diffuse (TENDERNESS, GUARDING) and Other (LEFT LOWER QUAD COLOSTOMY) Extremities Extremities Exam: Full ROM Back Back Exam: Normal Inspection and Full ROM MDM Differential Diagnosis Differential Diagnosis: Other (SMALL BOWEL OBSTRUCTION, DEHYDRATION) COURSE Treatment Treatment: IV BOLUS NORMAL SALINE 3 LITERS OVER 5 HOURS, AFTER BLOOD CULTURES, LEVAQUIN 500MG IVPB AND VANCOMYCIN 1GM IVPB, VITAL SIGNS BP 86/54 THEN 99/58 Reevaluation 1st: Improved ROR Labs Reviewed Laboratory Results Reviewed?: Yes Result Diagrams: 04/24/21 04:22 04/24/21 04:22 Laboratory: WBC 23.0 X10^3/uL (3.6-10.0) H 04/24/21 04:22 RBC 3.37 X10^6/uL (4.7-6.0) L 04/24/21 04:22 Hgb 10.0 g/dL (13.5-18.0) L 04/24/21 04:22 Hct 29.9 % (42.0-54.0) L 04/24/21 04:22 MCV 88.9 fL (80.0-100.0) 04/24/21 04:22 MCH 29.6 pg (27.0-34.0) 04/24/21 04: MCHC 33.4 g/dL (33.0-35.0) 04/24/21 04:22 RDW 17.8 % (11.6-16.5) H 04/24/21 04:22 Plt Count 533 X10^3/uL (150.0-450.0) H 04/24/21 04:22 Plt Count Comment Increased (ADEQUATE) 04/24/21 04:22 MPV 7.3 fL (7.4-11.0) L 04/24/21 04:22 Neut % (Auto) 89.4 % (42.0-75.0) H 04/24/21 04:22 Lymph % (Auto) 5.9 % (21.0-51.0) L 04/24/21 04:22 [place] % (Auto) 4.3 % (0.0-13.0) 04/24/21 04:22 Eos % (Auto) 0.2 % (0.9-2.9) L 04/24/21 04:22 Baso % (Auto) 0.2 % (0.2-1.0) 04/24/21 04:22 Neut # (Auto) 20.6 x10^3/uL (2.2-4.8) H 04/24/21 04:22 Lymph # (Auto) 1.3 X10^3/uL (1.3-2.9) 04/24/21 04:22 [place] # (Auto) 1.0 x10^3/uL (0.3-0.8) H 04/24/21 04:22 Eos # (Auto) 0.0 x10^3/uL (0.0-0.2) 04/24/21 04:22 Baso # (Auto) 0.0 X10^3/uL (0.0-0.1) 04/24/21 04:22 Absolute Nucleated RBC 0.0 /100WBC 04/24/21 04:22 Total Counted 100 04/24/21 04:22 Neutrophils % (Manual) 95 % (39-76) H 04/24/21 04:22 Lymphocytes % (Manual) 5 % (13-43) L 04/24/21 04:22 Monocytes % (Manual) 2 % (4-9) L 04/23/21 18:20 Plt Clumps, EDTA Few 04/24/21 04:22 Giant Platelets Moderate 04/24/21 04:22 Plt Morphology Comment Abnormal (NORMAL) 04/24/21 04:22 RBC Morphology Normal (NORMAL) 04/24/21 04:22 Sample Site Rra 04/23/21 19:55 ABG pH 7.540 (7.35-7.45) H 04/23/21 19:55 ABG pCO2 53.0 mmHg (35.0-45.0) H* 04/23/21 19:55 ABG pO2 72.0 mmHg (80.0-100.0) L 04/23/21 19:55 ABG HCO3 45.3 mmol/L (22-26) H* 04/23/21 19:55 ABG O2 Saturation 96.0 % (90-100) 04/23/21 19:55 ABG Base Excess 19.9 mmol/L (-2.0-2.0) H 04/23/21 19:55 Osmani Test Pos 04/23/21 19:55 A-a Gradient 11.0 mmHg 04/23/21 19:55 FiO2 21.0 04/23/21 19:55 Blood Gas Comments Jovan well mts 04/23/21 19:55 Sodium 133 mmol/L (136-145) L 04/24/21 04:22 Corrected Sodium TNP 04/24/21 04:22 Potassium 2.7 mmol/L (3.5-5.1) L* 04/24/21 04:22 Chloride 91 mmol/L (98-107) L 04/24/21 04:22 Carbon Dioxide 35.8 mmol/L (21-32) H 04/24/21 04:22 BUN 44 mg/dL (7-18) H 04/24/21 04:22 Creatinine 1.38 mg/dL (0.70-1.30) H 04/24/21 04:22 Est GFR (MDRD) Af Amer > 60 (>60) 04/24/21 04:22 Est GFR (MDRD) Non-Af 55 (>60) L 04/24/21 04:22 Glucose 74 mg/dL (65-99) 04/24/21 04:22 Lactic Acid 1.5 mmol/L (0.4-2.0) 04/23/21 19:48 Calcium 8.5 mg/dL (8.5-10.1) 04/24/21 04:22 Corrected Calcium 11.8 mg/dL (8.5-10.1) H 04/23/21 18:20 Magnesium 3.2 mg/dL (1.7-2.9) H 04/23/21 18:20 Total Bilirubin 0.80 mg/dL (0.2-1.0) 04/23/21 18:20 AST 55 Units/L (15-37) H 04/23/21 18:20 ALT 41 Units/L (12-78) 04/23/21 18:20 Alkaline Phosphatase 217 Units/L (46-116) H 04/23/21 18:20 Troponin I < 0.02 ng/mL (0-1.5) 04/23/21 18:20 Total Protein 8.9 g/dL (6.4-8.2) H 04/23/21 18:20 Albumin 2.3 g/dL (3.4-5.0) L 04/23/21 18:20 Globulin 6.6 g/dL (2.5-4.5) H 04/23/21 18:20 Albumin/Globulin Ratio 0.3 Ratio (1.1-2.1) L 04/23/21 18:20 Amylase 37 Units/L (25-115) 04/23/21 18:20 Lipase 57 Units/L (73-393) L 04/23/21 18:20 Specimen Type Random urine 08/09/21 21:33 Urine Color Yellow (YELLOW) 04/23/21 21:33 Urine Appearance Clear (CLEAR) 04/23/21 21:33 Urine pH 5.0 (5.0 - 8.0) 04/23/21 21:33 Ur Specific [place] 1.010 (1.000-1.030) 04/23/21 21:33 Urine Protein 3+ (NEGATIVE) 04/23/21 21:33 Urine Glucose (UA) Negative (NEGATIVE) 04/23/21 21:33 Urine Ketones 1+ (NEGATIVE) 04/23/21 21:33 Urine Occult Blood 4+ (NEGATIVE) 04/23/21 21:33 Urine Nitrite Negative (NEGATIVE) 04/23/21 21: Urine Bilirubin Negative (NEGATIVE) 04/23/21 21:33 Urine Urobilinogen Normal (NORMAL) 04/23/21 21:33 Ur Leukocyte Esterase 3+ (NEGATIVE) 04/23/21 21:33 Urine RBC 5-10 /HPF (0-3) A 04/23/21 21:33 Urine WBC Tntc /HPF (0-5) A 04/23/21 21:33 Ur Squamous Epith Cells Few /HPF (NEGATIVE) 04/23/21 21:33 Urine Bacteria 2+ /HPF (NEGATIVE) 04/23/21 21:33 Urine Mucus Few /HPF (NEGATIVE) 04/23/21 21:33 Urine Yeast Moderate /HPF (NEGATIVE) 04/23/21 21:33 Ur Culture Indicated? No/not indicated 04/23/21 21:33 SARS-CoV-2 (PCR) Negative (NEGATIVE) 04/23/21 21:32 Influenza Type A (PCR) Negative (NEGATIVE) 04/23/21 21:32 Influenza Type B (PCR) Negative (NEGATIVE) 04/23/21 21:32 RSV (PCR) Negative (NEGATIVE) 04/23/21 21:32 XRAY XRAY Interpreted by: Radiologist (HEAD CT SCAN NEGATIVE, ABDOMEN PELVIC CT NONCONTRAST C/W SMALL BOWEL OBSTRUCTION, TRANSITION POINT IN LOWER ABDOMEN. ENHANCING SOFT TISSUE SURROUNDING LOWER RECTUM WITH AIR-FLUID LEVEL AND ABSCESS NOTED, 7.4CM X 3.0, MOST COMPATIBLE WITH ABSCESS, COMPLEX ABSCESSS VERUS RESIDUAL NEOPLASM) X-ray Results: PORTABLE CHEST XRAY-NEGATIVE EKG Rate: 99 Rhythm: NSR (PROLONGED QT) and ST Opioid Opioid Risk Tool Age (Shakir box if 16-45): No History of Preadolescent Sexual Abuse: No Total: 0 Total Score Risk Category: Low Risk Copyright: Noe MALONEY predicting aberrant behaviors Diagnosis Discharge Problem: Complete small bowel obstruction, Pelvic mass, Acute hypokalemia
[2021-04-23] MEDS ORDERED: NS 1000 ML 1,000 ML IV STA (17:54)
[2021-04-23 18:31] LABS: BASOPHILS % (AUTO) 0.1 % (0.2-1.0); EOSINOPHILS % (AUTO) 0.2 % (0.9-2.9); HEMATOCRIT 34.9 % (42.0-54.0); HEMOGLOBIN 11.7 g/dL (13.5-18.0); LYMPHOCYTES # (AUTO) 1.1 X10^3/uL (1.3-2.9); LYMPHOCYTES % (AUTO) 4.4 % (21.0-51.0); MEAN CORPUSCULAR HEMOGLOBIN 29.5 pg (27.0-34.0); MEAN CORPUSCULAR HGB CONC 33.5 g/dL (33.0-35.0); MEAN CORPUSCULAR VOLUME 88.3 fL (80.0-100.0); MEAN PLATELET VOLUME 7.8 fL (7.4-11.0); MONOCYTES # (AUTO) 0.9 x10^3/uL (0.3-0.8); MONOCYTES % (AUTO) 3.7 % (0.0-13.0); NEUTROPHILS # (AUTO) 22.5 x10^3/uL (2.2-4.8); NEUTROPHILS % (AUTO) 91.6 % (42.0-75.0); PLATELET COUNT 575 X10^3/uL (150.0-450.0); RED BLOOD COUNT 3.96 X10^6/uL (4.7-6.0); RED CELL DISTRIBUTION WIDTH 17.5 % (11.6-16.5); WHITE BLOOD COUNT 24.5 X10^3/uL (3.6-10.0)
[2021-04-23 18:45] LABS: ALANINE AMINOTRANSFERASE 41 Units/L (12-78); ALBUMIN 2.3 g/dL (3.4-5.0); ALKALINE PHOSPHATASE 217 Units/L (46-116); AMYLASE 37 Units/L (25-115); ASPARTATE AMINO TRANSFERASE 55 Units/L (15-37); BLOOD UREA NITROGEN 50 mg/dL (7-18); CALCIUM 10.4 mg/dL (8.5-10.1); CARBON DIOXIDE 39.2 mmol/L (21-32); COR CA(FOR HYPOALB) 11.8 mg/dL (8.5-10.1); COR NA(FOR HYPERGLY) 126 mmol/L (136-145); CREATININE 1.79 mg/dL (0.70-1.30); LIPASE 57 Units/L (73-393); MAGNESIUM 3.2 mg/dL (1.7-2.9); TOTAL PROTEIN 8.9 g/dL (6.4-8.2); TROPONIN I < 0.02 ng/mL (0-1.5); eGFR NON BLACK RACES 41 (>60)
[2021-04-23 18:50] LABS: SODIUM 125 mmol/L (136-145)
[2021-04-23 18:51] LABS: CHLORIDE 77 mmol/L (98-107)
[2021-04-23 18:57] LABS: PLATELET MORPHOLOGY COMMENT NORMAL (NORMAL)
[2021-04-23] MEDS ORDERED: NS 100 ML IV 100 ML ONE (19:01)
[2021-04-23] MEDS ORDERED: NS 1000 ML 1,000 ML ONE ×3 (19:11→22:38)
[2021-04-23] MEDS ORDERED: LEVAQUIN PREMIX IV 500 MG 500 MG/100 ML BAG IV ONE ×2 (19:32→20:49)
[2021-04-23 19:59] LABS: ABG BASE EXCESS 19.9 mmol/L (-2.0-2.0); ABG HCO3 45.3 mmol/L (22-26)
[2021-04-23 20:00] LABS: ABG ALLEN TEST POS
--- NOTE | 2021-04-23 20:34 | CT ---
EXAM: HEAD CT WITHOUT INTRAVENOUS CONTRASTHISTORY: Seizure.TECHNIQUE: Spiral axial CT images are obtained through the brain without the administration of intravenous contrast. Sagittal and coronal reformatted images are reconstructed.DOSIMETRY: Total DLP 1294.1 mGycm; CTDI 70.8 mGyCOMPARISON: None available.FINDINGS:There is mild diffuse cerebral cortical atrophy. The centrum semiovale, basal ganglia, cerebellum, and brainstem are otherwise grossly unremarkable for a noncontrast CT scan. Atherosclerosis of the carotid siphons is seen. Consider follow-up MRA as clinically warranted.There is no acute intracranial hemorrhage, discernible acute infarction, mass lesion, midline shift, or hydrocephalus seen. No extra-axial mass or abnormal fluid collection is seen. Nonspecific pineal gland calcification is seen.The calvarium is intact. The partially imaged paranasal sinuses, middle ear cavities, and mastoid air cells are clear.IMPRESSION:1. No intracranial hemorrhage, discernible acute infarction, mass lesions, midline shift, mass effect or hydrocephalus seen.2. Mild diffuse cerebral cortical atrophy.3. Atherosclerotic disease of the carotid siphons marked by calcified mural plaques.4. Consider followup evaluation with MRI /MRA imaging for further assessment as clinically warranted.Electronically signed by: Lindsay Quiñonez (Apr 23, 2021 20:33:11)
[2021-04-23] MEDS: NS 1000 ML 1,000 ML IV ONE ×3 (20:35→22:39)
--- NOTE | 2021-04-23 20:41 | CT ---
CT abdomen and pelvis with contrastIndication: Abdominal pain. History of colon cancer and bowel resection. History of nephrostomy.COMPARISONJuly 2020 CTTECHNIQUE: Helical images through the abdomen and pelvis after IV contrast. 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 Calcified granuloma noted. Left lower lobe calcified lung nodule noted.Abdomen: Abdomen: The liver, spleen and adrenal glands are normal. Pancreas is normal. Cholecystectomy clips noted. Nephrostomy tubes are seen bilaterally with left renal atrophy pronounced. Aortoiliac plaque noted.Stomach and duodenum show no acute abnormality. The jejunum is dilated. Left abdominal ostomy seen on axial image 64, with the lower left colon resected. The right colon and remaining left colon above the ostomy site show relatively normal amount of stool. Appendix is not convincingly demonstrated without marked pericecal inflammation. Terminal ileum is collapsed on axial image 68.The dilatation of the jejunum is similar in pattern to the prior CT overall, without pneumatosis convincingly demonstrated. Transition point appears to be present in the mid abdomen on axial image 63, where there is focal narrowing and possible anastomosis, with clip seen on axial image 64-62.Pelvis: There is diffuse rectal wall thickening on axial image 72-89, with marked stranding and inflammation in the pelvis. Peripherally enhancing soft tissue density is noted on axial images 74-85, with an air-fluid level on axial image 83 and peripheral enhancing collection noted. This measures 7.4 x 3.0 centimeters, previously remeasured as 7.4 x 3.0 centimeters on axial image 76. This is most compatible with an abscess and unchanged. Presacral soft tissue inflammation is seen, extending into the left gluteal region through the sciatic foramina on axial image 77. This lesion measures 2.1 x 3.5 centimeters and is concerning for neoplasm versus abscess. The large non gas containing collection around the lower rectum measures 8.5 x 4.5 centimeters on axial image 78, relatively unchanged from prior axial image 70. Multi-septated fluid is seen to the left of the rectum on axial image 74-80, with gas, concerning for abscess here as well.Visualization to the bladder is possible with marked bladder wall thickening and enhancement around the bladder with gas in the bladder.IMPRESSION1. Findings are overall similar to the prior with small-bowel obstruction favored, probably due to adhesions or inflammation in the lower abdomen, with transition point in the lower abdomen. Surgical consultation recommended.2. Enhancing soft tissue surrounding the lower rectum, with air-fluid level and abscess noted. The largest abscess is through the left of the midline in the lower pelvis abutting the rectum, with multi septated fluid tracking cranially along the rectum as well, possibly communicating and fistulas into the bladder base, as the bladder is thick-walled and contains gas. Surgical consultation recommended.3. Surrounding the rectum into the right there is enhancing soft tissue, possibly reflecting residual neoplasm, possibly invading the lower rectum on axial image 83 and extending through this attic frame on axial image 77. Complex abscess versus residual cancer suspected with high concern for residual neoplasm.4. Renal atrophy with nephrostomy tubes.Electronically signed by: KATIE RYAN (Apr 23, 2021 20:38:57)
--- NOTE | 2021-04-23 21:14 | RAD ---
EXAM: CHEST X-RAYHISTORY: Cough. Seizure.TECHNIQUE: AP chest x-ray dated April 23, 2021 at 7:40 PM.COMPARISON: CXR dated January 16, 2021.FINDINGS:There is a left subclavian anterior chest wall chest port in situ with the distal tip in the distal SVC (adequate position). The heart size and mediastinum are within normal limits. There is a stable 6 mm calcified nodule in the left lower lung field in keeping with a chronic calcified granuloma or chronic sequela of prior granulomatous disease. The lung vallejo and costophrenic angles are otherwise clear. There is no acute parenchymal infiltrate, pleural effusion, or pneumothorax seen. The visualized bony structures are within normal limits.IMPRESSION:1. No evidence for acute cardiopulmonary disease seen.2. Stable 6 mm calcified nodule in the left lower lung field in keeping with a chronic calcified granuloma or chronic sequela of prior granulomatous disease.3. No significant interval change from the previous exam.Electronically signed by: Lindsay Quiñonez (Apr 23, 2021 21:11:51)
[2021-04-23 21:52] LABS: BILIRUBIN,URINE NEGATIVE (NEGATIVE); BLOOD/HEMOGLOBIN,URINE 4+ (NEGATIVE); GLUCOSE, URINE NEGATIVE (NEGATIVE); KETONES,URINE 1+ (NEGATIVE); LEUKOCYTE ESTERASE ,URINE 3+ (NEGATIVE); NITRITES,URINE NEGATIVE (NEGATIVE); PROTEIN,URINE 3+ (NEGATIVE); UROBILINOGEN,URINE NORMAL (NORMAL)
[2021-04-23 22:03] LABS: APPEARANCE,URINE CLEAR (CLEAR); COLOR,URINE YELLOW (YELLOW)
[2021-04-23 22:04] LABS: BACTERIA,URINE 2+ /HPF (NEGATIVE); MUCUS,URINE FEW /HPF (NEGATIVE); SQUAMOUS EPITHELIAL CELL,UR FEW /HPF (NEGATIVE); YEAST,URINE MODERATE /HPF (NEGATIVE)
[2021-04-24] MEDS ORDERED: NS 1000 ML 1,000 ML ONE ×3 (01:17→10:04)
[2021-04-24] MEDS ORDERED: VANCOMYCIN IV *PREMIX 1 G/200 ML BAG 1 G/200 ML PIGGYBACK IV ONE ×2 (01:19→01:51)
[2021-04-24] MEDS ORDERED: K-RIDER 10 MEQ/NS 100 ML 10 MEQ/100 ML BAG IV ONE ×6 (01:20→23:50)
[2021-04-24] MEDS ORDERED: LEVOPHED INJ ONE (01:47)
[2021-04-24] MEDS ORDERED: D5W 250 ML IV 250 ML IV ONE (01:48)
[2021-04-24] MEDS: LEVOPHED INJ 8 MG in D5W 250 ML IV 242 ML IV PRN ×4 (02:11→11:45)
[2021-04-24] MEDS ORDERED: MORPHINE SULFATE INJ 2 MG INJ IVP STA (03:22)
[2021-04-24] MEDS ORDERED: ZOFRAN INJ 4 MG VIAL IVP ONE (03:22)
[2021-04-24] MEDS ORDERED: ZOFRAN INJ 4 MG VIAL ONE (04:14)
[2021-04-24] MEDS ORDERED: MORPHINE SULFATE INJ 2 MG INJ ONE ×2 (04:14→22:52)
[2021-04-24] MEDS: K-RIDER 10 MEQ/NS 100 ML 10 MEQ/100 ML BAG IV ONE ×4 (04:19→06:47)
[2021-04-24 04:30] LABS: BASOPHILS % (AUTO) 0.2 % (0.2-1.0); EOSINOPHILS % (AUTO) 0.2 % (0.9-2.9); HEMATOCRIT 29.9 % (42.0-54.0); LYMPHOCYTES # (AUTO) 1.3 X10^3/uL (1.3-2.9); LYMPHOCYTES % (AUTO) 5.9 % (21.0-51.0); MEAN CORPUSCULAR HEMOGLOBIN 29.6 pg (27.0-34.0); MEAN CORPUSCULAR HGB CONC 33.4 g/dL (33.0-35.0); MEAN CORPUSCULAR VOLUME 88.9 fL (80.0-100.0); MEAN PLATELET VOLUME 7.3 fL (7.4-11.0); MONOCYTES % (AUTO) 4.3 % (0.0-13.0); NEUTROPHILS # (AUTO) 20.6 x10^3/uL (2.2-4.8); NEUTROPHILS % (AUTO) 89.4 % (42.0-75.0); PLATELET COUNT 533 X10^3/uL (150.0-450.0); RED BLOOD COUNT 3.37 X10^6/uL (4.7-6.0); RED CELL DISTRIBUTION WIDTH 17.8 % (11.6-16.5)
[2021-04-24 04:37] LABS: BLOOD UREA NITROGEN 44 mg/dL (7-18); CALCIUM 8.5 mg/dL (8.5-10.1); CARBON DIOXIDE 35.8 mmol/L (21-32); CHLORIDE 91 mmol/L (98-107); CREATININE 1.38 mg/dL (0.70-1.30); SODIUM 133 mmol/L (136-145); eGFR NON BLACK RACES 55 (>60)
[2021-04-24 04:41] LABS: GIANT PLATELET MODERATE; PLATELET MORPHOLOGY COMMENT ABNORMAL (NORMAL)
--- NOTE | 2021-04-24 05:43 | RAD ---
PROCEDURE: Abdomen X-ray 1 View .HISTORY: NG TUBE PLACEMENT .TECHNIQUE: AP supine abdomen view .COMPARISON: 04/12/2021.TECHNICAL QUALITY: Satisfactory .FINDINGS:NG tube tip at the GE junction and repositioning more distally 15 cm recommended.Bilateral percutaneous nephrostomy tubes projected over the kidneys.Scattered nonspecific bowel-gas.IMPRESSION:NG tube at the GE junction and repositioning more distally 15 cm recommended.Electronically signed by: Jin Roca (Apr 24, 2021 05:41:59)
[2021-04-24] MEDS ORDERED: ZOFRAN INJ 4 MG VIAL IVP PRN (06:12)
[2021-04-24] MEDS ORDERED: LEVOPHED INJ 8 MG in D5W 250 ML IV 242 ML IV PRN (06:24)
[2021-04-24] MEDS: NS 1000 ML 1,000 ML IV SCH ×5 (06:33→22:44)
[2021-04-24] MEDS ORDERED: NS 1000 ML 1,000 ML IV ONE (08:07)
[2021-04-24] MEDS: PROTONIX INJ 40 MG VIAL IVP SCH (09:12)
[2021-04-24] MEDS: FLAGYL IV PREMIX 500 MG BAG 500 MG/100 ML BAG IV SCH ×3 (09:12→20:02)
[2021-04-24] MEDS ORDERED: INVANZ INJ 1 GM VIAL ONE (10:04)
[2021-04-24] MEDS ORDERED: NS 100 ML IV + SPIKE MINIBAG* 100 ML IV ONE (10:04)
[2021-04-24] MEDS: INVANZ INJ 1 GM VIAL 1 GM in NS 100 ML IV + SPIKE MINIBAG* 100 ML IV SCH (10:18)
[2021-04-24] MEDS ORDERED: KLOR-CON PO PRN (16:40)
[2021-04-24] MEDS ORDERED: POTASSIUM CHLORIDE LIQ 20 MEQ UDC PO PRN (16:40)
[2021-04-24] MEDS ORDERED: MICRO K EXTEN CAP 10 MEQ PO PRN (16:40)
[2021-04-24] MEDS ORDERED: POTASSIUM CHL 60 MEQ/NS 0.45% 500 ML IV PRN (16:40)
[2021-04-24] MEDS ORDERED: K-DUR TAB 20 MEQ PO PRN (16:40)
[2021-04-24] MEDS ORDERED: POTASSIUM CHL 40 MEQ/NS 0.45% 500 ML IV PRN (16:40)
[2021-04-24] MEDS: K-RIDER 10 MEQ/NS 100 ML 10 MEQ/100 ML BAG IV PRN ×3 (17:19→22:55)
[2021-04-24] MEDS: MORPHINE SULFATE INJ 2 MG INJ IVP PRN (23:15)
[2021-04-25] MEDS ORDERED: K-RIDER 10 MEQ/NS 100 ML 10 MEQ/100 ML BAG IV ONE (00:56)
[2021-04-25] MEDS: K-RIDER 10 MEQ/NS 100 ML 10 MEQ/100 ML BAG IV PRN ×3 (01:00→02:06)
[2021-04-25] MEDS: FLAGYL IV PREMIX 500 MG BAG 500 MG/100 ML BAG IV SCH ×4 (03:15→21:25)
[2021-04-25] MEDS: LEVOPHED INJ 8 MG in D5W 250 ML IV 242 ML IV PRN ×3 (04:28→13:36)
[2021-04-25 06:42] LABS: BASOPHILS # (AUTO) 0.1 X10^3/uL (0.0-0.1); BASOPHILS % (AUTO) 0.5 % (0.2-1.0); HEMATOCRIT 29.5 % (42.0-54.0); HEMOGLOBIN 9.6 g/dL (13.5-18.0); LYMPHOCYTES # (AUTO) 0.8 X10^3/uL (1.3-2.9); LYMPHOCYTES % (AUTO) 4.8 % (21.0-51.0); MEAN CORPUSCULAR HEMOGLOBIN 29.4 pg (27.0-34.0); MEAN CORPUSCULAR HGB CONC 32.5 g/dL (33.0-35.0); MEAN CORPUSCULAR VOLUME 90.5 fL (80.0-100.0); MEAN PLATELET VOLUME 7.6 fL (7.4-11.0); MONOCYTES # (AUTO) 0.6 x10^3/uL (0.3-0.8); MONOCYTES % (AUTO) 3.3 % (0.0-13.0); NEUTROPHILS # (AUTO) 15.9 x10^3/uL (2.2-4.8); NEUTROPHILS % (AUTO) 91.4 % (42.0-75.0); PLATELET COUNT 529 X10^3/uL (150.0-450.0); RED BLOOD COUNT 3.26 X10^6/uL (4.7-6.0); RED CELL DISTRIBUTION WIDTH 17.1 % (11.6-16.5); WHITE BLOOD COUNT 17.4 X10^3/uL (3.6-10.0)
[2021-04-25 06:48] LABS: ALANINE AMINOTRANSFERASE 20 Units/L (12-78); ALBUMIN 1.7 g/dL (3.4-5.0); ALKALINE PHOSPHATASE 135 Units/L (46-116); ASPARTATE AMINO TRANSFERASE 26 Units/L (15-37); BLOOD UREA NITROGEN 25 mg/dL (7-18); CALCIUM 8.9 mg/dL (8.5-10.1); CARBON DIOXIDE 30.2 mmol/L (21-32); CHLORIDE 109 mmol/L (98-107); COR CA(FOR HYPOALB) 10.7 mg/dL (8.5-10.1); CREATININE 1.11 mg/dL (0.70-1.30); MAGNESIUM 2.7 mg/dL (1.7-2.9); SODIUM 146 mmol/L (136-145); TOTAL PROTEIN 6.7 g/dL (6.4-8.2); eGFR NON BLACK RACES > 60 (>60)
[2021-04-25] MEDS: NS 1000 ML 1,000 ML IV SCH ×4 (07:10→19:20)
[2021-04-25 08:11] LABS: BAND NEUTROPHILS % 3 % (0-10)
[2021-04-25 08:12] LABS: ANISOCYTOSIS SLIGHT; HYPOCHROMASIA SLIGHT; PLATELET MORPHOLOGY COMMENT NORMAL (NORMAL)
[2021-04-25] MEDS ORDERED: OXYCODONE ACETAMINOPHEN PO PRN (08:23)
[2021-04-25] MEDS ORDERED: PHENERGAN TAB 25 MG PO PRN (08:23)
[2021-04-25] MEDS ORDERED: AMBIEN PO PRN (08:23)
[2021-04-25] MEDS ORDERED: PERCOCET TAB 5/325 MG PO PRN (08:31)
[2021-04-25] MEDS: INVANZ INJ 1 GM VIAL 1 GM in NS 100 ML IV + SPIKE MINIBAG* 100 ML IV SCH (08:40)
[2021-04-25] MEDS: PROTONIX INJ 40 MG VIAL IVP SCH (08:42)
[2021-04-25] MEDS: COLACE CAP 100 MG PO SCH ×2 (09:31→21:25)
[2021-04-25] MEDS: NEURONTIN CAP 300 MG PO SCH ×4 (09:32→21:25)
[2021-04-25] MEDS: CYMBALTA PO SCH ×2 (09:32→21:25)
--- NOTE | 2021-04-25 11:00 | DR.PROGNOT ---
Hospital Progress Notes - Progress Note for Day of: Progress Note Date: 04/25/21 - Chief Complaint Chief Complaint: Pt pulled his NGT yesterday . denies abdominal pain . no nausea or vomiting . small amount of stool in colostomy bag . normal urine in nephrestomy bag . - Past Medical Family Social History Past Med/Fam/Surg Hx: No changes since H&P Allergies: Allergies tramadol Allergy (Unknown, Verified 12/04/20 10:23) Penicillins Allergy (Verified 12/04/20 10:23) - Review Of Systems ROS: No change since H&P - Vital Signs Vital Signs: Temperature 97.9 F Pulse Rate 92 Respiratory Rate 17 Blood Pressure [Left Arm] 114/56 Blood Pressure 124/56 O2 Sat by Pulse Oximetry 96 - Physical Exam Oriented: Normal Eyes: Normal Nose: Normal Throat: Normal Respiratory: Normal : Other (has bilateral nephrostomies ) GI: Tenderness: Other (soft, full abdomen with only mild diffuse tenderfness more on the suprapubic area . colostoly is functioning ) Speech Pattern: Clear, Appropriate - Laboratory and Diagnostics Result Diagrams: 04/25/21 05:50 04/25/21 05:50 Labs: Laboratory WBC 17.4 X10^3/uL (3.6-10.0) H 04/25/21 05:50 RBC 3.26 X10^6/uL (4.7-6.0) L 04/25/21 05:50 Hgb 9.6 g/dL (13.5-18.0) L 04/25/21 05:50 Hct 29.5 % (42.0-54.0) L 04/25/21 05:50 MCV 90.5 fL (80.0-100.0) 04/25/21 05:50 MCH 29.4 pg (27.0-34.0) 04/25/21 05:50 MCHC 32.5 g/dL (33.0-35.0) L 04/25/21 05:50 RDW 17.1 % (11.6-16.5) H 04/25/21 05:50 Plt Count 529 X10^3/uL (150.0-450.0) H 04/25/21 05:50 Plt Count Comment Increased (ADEQUATE) 04/25/21 05:50 MPV 7.6 fL (7.4-11.0) 04/25/21 05:50 Neut % (Auto) 91.4 % (42.0-75.0) H 04/25/21 05:50 Lymph % (Auto) 4.8 % (21.0-51.0) L 04/25/21 05:50 [place] % (Auto) 3.3 % (0.0-13.0) 04/25/21 05:50 Eos % (Auto) 0.0 % (0.9-2.9) L 04/25/21 05:50 Baso % (Auto) 0.5 % (0.2-1.0) 04/25/21 05:50 Neut # (Auto) 15.9 x10^3/uL (2.2-4.8) H 04/25/21 05:50 Lymph # (Auto) 0.8 X10^3/uL (1.3-2.9) L 04/25/21 05:50 [place] # (Auto) 0.6 x10^3/uL (0.3-0.8) 04/25/21 05:50 Eos # (Auto) 0.0 x10^3/uL (0.0-0.2) 04/25/21 05:50 Baso # (Auto) 0.1 X10^3/uL (0.0-0.1) 04/25/21 05:50 Absolute Nucleated RBC 0.0 /100WBC 04/25/21 05:50 Total Counted 100 04/25/21 05:50 Neutrophils % (Manual) 94 % (39-76) H 04/25/21 05:50 Band Neutrophils % 3 % (0-10) 04/25/21 05:50 Lymphocytes % (Manual) 3 % (13-43) L 04/25/21 05:50 Monocytes % (Manual) 2 % (4-9) L 04/23/21 18:20 Plt Clumps, EDTA Few 04/24/21 04:22 Giant Platelets Moderate 04/24/21 04:22 Plt Morphology Comment Normal (NORMAL) 04/25/21 05:50 RBC Morphology Abnormal (NORMAL) 04/25/21 05:50 Hypochromasia Slight A 04/25/21 05:50 Anisocytosis Slight A 04/25/21 05:50 Sample Site Rra 04/23/21 19:55 ABG pH 7.540 (7.35-7.45) H 04/23/21 19:55 ABG pCO2 53.0 mmHg (35.0-45.0) H* 04/23/21 19:55 ABG pO2 72.0 mmHg (80.0-100.0) L 04/23/21 19:55 ABG HCO3 45.3 mmol/L (22-26) H* 04/23/21 19:55 ABG O2 Saturation 96.0 % (90-100) 04/23/21 19:55 ABG Base Excess 19.9 mmol/L (-2.0-2.0) H 04/23/21 19:55 Osmani Test Pos 04/23/21 19:55 A-a Gradient 11.0 mmHg 04/23/21 19:55 FiO2 21.0 04/23/21 19:55 Blood Gas Comments Jovan well mts 04/23/21 19:55 Sodium 146 mmol/L (136-145) H 04/25/21 05:50 Corrected Sodium TNP 04/25/21 05:50 Potassium 4.0 mmol/L (3.5-5.1) 04/25/21 05:50 Chloride 109 mmol/L (98-107) H 04/25/21 05:50 Carbon Dioxide 30.2 mmol/L (21-32) 04/25/21 05:50 BUN 25 mg/dL (7-18) H 04/25/21 05:50 Creatinine 1.11 mg/dL (0.70-1.30) 04/25/21 05:50 Est GFR (MDRD) Af Amer > 60 (>60) 04/25/21 05:50 Est GFR (MDRD) Non-Af > 60 (>60) 04/25/21 05:50 Glucose 77 mg/dL (65-99) 04/25/21 05:50 Lactic Acid 1.5 mmol/L (0.4-2.0) 04/23/21 19:48 Calcium 8.9 mg/dL (8.5-10.1) 04/25/21 05:50 Corrected Calcium 10.7 mg/dL (8.5-10.1) H 04/25/21 05:50 Magnesium 2.7 mg/dL (1.7-2.9) 04/25/21 05:50 Total Bilirubin 0.40 mg/dL (0.2-1.0) 04/25/21 05:50 AST 26 Units/L (15-37) 04/25/21 05:50 ALT 20 Units/L (12-78) 04/25/21 05:50 Alkaline Phosphatase 135 Units/L (46-116) H 04/25/21 05:50 Troponin I < 0.02 ng/mL (0-1.5) 04/23/21 18:20 Total Protein 6.7 g/dL (6.4-8.2) 04/25/21 05:50 Albumin 1.7 g/dL (3.4-5.0) L 04/25/21 05:50 Globulin 5.0 g/dL (2.5-4.5) H 04/25/21 05:50 Albumin/Globulin Ratio 0.3 Ratio (1.1-2.1) L 04/25/21 05:50 Amylase 37 Units/L (25-115) 04/23/21 18:20 Lipase 57 Units/L (73-393) L 04/23/21 18:20 Specimen Type Random urine 04/23/21 21:33 Urine Color Yellow (YELLOW) 04/23/21 21:33 Urine Appearance Clear (CLEAR) 04/23/21 21:33 Urine pH 5.0 (5.0 - 8.0) 04/23/21 21:33 Ur Specific [place] 1.010 (1.000-1.030) 04/23/21 21:33 Urine Protein 3+ (NEGATIVE) 04/23/21 21:33 Urine Glucose (UA) Negative (NEGATIVE) 04/23/21 21:33 Urine Ketones 1+ (NEGATIVE) 04/23/21 21:33 Urine Occult Blood 4+ (NEGATIVE) 04/23/21 21:33 Urine Nitrite Negative (NEGATIVE) 04/23/21 21:33 Urine Bilirubin Negative (NEGATIVE) 04/23/21 21:33 Urine Urobilinogen Normal (NORMAL) 04/23/21 21:33 Ur Leukocyte Esterase 3+ (NEGATIVE) 04/23/21 21:33 Urine RBC 5-10 /HPF (0-3) A 04/23/21 21:33 Urine WBC Tntc /HPF (0-5) A 04/23/21 21:33 Ur Squamous Epith Cells Few /HPF (NEGATIVE) 04/23/21 21:33 Urine Bacteria 2+ /HPF (NEGATIVE) 04/23/21 21:33 Urine Mucus Few /HPF (NEGATIVE) 04/23/21 21:33 Urine Yeast Moderate /HPF (NEGATIVE) 04/23/21 21:33 Ur Culture Indicated? No/not indicated 04/23/21 21:33 SARS-CoV-2 (PCR) Negative (NEGATIVE) 04/23/21 21:32 Influenza Type A (PCR) Negative (NEGATIVE) 04/23/21 21:32 Influenza Type B (PCR) Negative (NEGATIVE) 04/23/21 21:32 RSV (PCR) Negative (NEGATIVE) 04/23/21 21:32 - Assessment and Plan 1: partial SBO . 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 s/o proximal colostomy and bilateral tube nephrostomies . to start on liquid diet and repeat abdominal xray today .. - Problem Patient Problems: Patient Problems (This Medical Record has been edited. Action required.) Complete small bowel obstruction (Acute) K56.601 Pelvic mass (Acute) R19.00 Acute hypokalemia (Acute) E87.6
--- NOTE | 2021-04-25 11:52 | RAD ---
HISTORY:Small bowel obstruction, pelvic mass, history of colon cancer, nephrostomyStudy: KUBComparison:CT 04/23/2021FINDINGS/IMPRESSION:There is a persistent small bowel obstruction with increased distention of small-bowel loops in the central abdomen now measuring up to 6.7 centimeters. There are bilateral nephrostomy tubes in place. Soft tissue density in the pelvis as described on recent CT.Electronically signed by: JAN HINSON (Apr 25, 2021 11:48:38)
[2021-04-25] MEDS ORDERED: REQUIP PO SCH (21:00)
[2021-04-26] MEDS: LEVOPHED INJ 8 MG in D5W 250 ML IV 242 ML IV PRN (01:54)
[2021-04-26] MEDS: FLAGYL IV PREMIX 500 MG BAG 500 MG/100 ML BAG IV SCH ×4 (02:47→20:20)
[2021-04-26] MEDS: NS 1000 ML 1,000 ML IV SCH ×2 (06:03→16:00)
[2021-04-26 06:49] LABS: BASOPHILS # (AUTO) 0.1 X10^3/uL (0.0-0.1); BASOPHILS % (AUTO) 0.4 % (0.2-1.0); EOSINOPHILS % (AUTO) 0.2 % (0.9-2.9); HEMATOCRIT 29.5 % (42.0-54.0); HEMOGLOBIN 9.4 g/dL (13.5-18.0); LYMPHOCYTES # (AUTO) 0.9 X10^3/uL (1.3-2.9); LYMPHOCYTES % (AUTO) 5.5 % (21.0-51.0); MEAN CORPUSCULAR HGB CONC 31.9 g/dL (33.0-35.0); MEAN CORPUSCULAR VOLUME 90.9 fL (80.0-100.0); MEAN PLATELET VOLUME 7.7 fL (7.4-11.0); MONOCYTES # (AUTO) 0.6 x10^3/uL (0.3-0.8); MONOCYTES % (AUTO) 3.4 % (0.0-13.0); NEUTROPHILS # (AUTO) 14.8 x10^3/uL (2.2-4.8); NEUTROPHILS % (AUTO) 90.5 % (42.0-75.0); PLATELET COUNT 496 X10^3/uL (150.0-450.0); RED BLOOD COUNT 3.24 X10^6/uL (4.7-6.0); RED CELL DISTRIBUTION WIDTH 17.4 % (11.6-16.5); WHITE BLOOD COUNT 16.4 X10^3/uL (3.6-10.0)
[2021-04-26 07:11] LABS: ALANINE AMINOTRANSFERASE 15 Units/L (12-78); ALBUMIN 1.6 g/dL (3.4-5.0); ALKALINE PHOSPHATASE 128 Units/L (46-116); ASPARTATE AMINO TRANSFERASE 18 Units/L (15-37); BLOOD UREA NITROGEN 17 mg/dL (7-18); CALCIUM 8.9 mg/dL (8.5-10.1); CHLORIDE 112 mmol/L (98-107); COR CA(FOR HYPOALB) 10.8 mg/dL (8.5-10.1); CREATININE 1.01 mg/dL (0.70-1.30); SODIUM 147 mmol/L (136-145); TOTAL PROTEIN 6.1 g/dL (6.4-8.2); eGFR NON BLACK RACES > 60 (>60)
[2021-04-26 07:30] LABS: BAND NEUTROPHILS % 3 % (0-10); PLATELET MORPHOLOGY COMMENT NORMAL (NORMAL)
[2021-04-26] MEDS ORDERED: FLOMAX PO SCH (09:00)
[2021-04-26] MEDS ORDERED: MAGNESIUM SULFATE 1 GRAM/100 mL PREMIX 1 GM/100 ML BAG IV PRN (09:10)
[2021-04-26] MEDS: CYMBALTA PO SCH (09:15)
[2021-04-26] MEDS: COLACE CAP 100 MG PO SCH (09:15)
[2021-04-26] MEDS: INVANZ INJ 1 GM VIAL 1 GM in NS 100 ML IV + SPIKE MINIBAG* 100 ML IV SCH (09:16)
[2021-04-26] MEDS: NEURONTIN CAP 300 MG PO SCH ×2 (09:17→14:25)
[2021-04-26] MEDS: PROTONIX INJ 40 MG VIAL IVP SCH (09:17)
--- NOTE | 2021-04-26 10:23 | DR.PROGNOT ---
Hospital Progress Notes - Progress Note for Day of: Progress Note Date: 04/26/21 - Chief Complaint Chief Complaint: c/o nausea . no vomiting . having lower abdominal pain . abdominal xray showed SBO . BUN/Creat normal . WBC 16.4 - Past Medical Family Social History Past Med/Fam/Surg Hx: No changes since H&P Allergies: Allergies tramadol Allergy (Unknown, Verified 12/04/20 10:23) Penicillins Allergy (Verified 12/04/20 10:23) - Review Of Systems ROS: No change since H&P - Vital Signs Vital Signs: Temperature 97.3 F Pulse Rate 96 Respiratory Rate 22 Blood Pressure [Left Arm] 114/56 Blood Pressure 108/71 O2 Sat by Pulse Oximetry 94 - Physical Exam Oriented: Normal Eyes: Normal Nose: Normal Throat: Normal Respiratory: Normal : Other (has bilateral nephrostomies ) GI: Tenderness: Other (distended , tympanic abdomen .. colostomy bag is empty . lower abdominal tenderness ) Speech Pattern: Clear, Appropriate - Laboratory and Diagnostics Result Diagrams: 04/26/21 05:55 04/26/21 05:55 Labs: Laboratory WBC 16.4 X10^3/uL (3.6-10.0) H 04/26/21 05:55 RBC 3.24 X10^6/uL (4.7-6.0) L 04/26/21 05:55 Hgb 9.4 g/dL (13.5-18.0) L 04/26/21 05:55 Hct 29.5 % (42.0-54.0) L 04/26/21 05:55 MCV 90.9 fL (80.0-100.0) 04/26/21 05:55 MCH 29.0 pg (27.0-34.0) 04/26/21 05:55 MCHC 31.9 g/dL (33.0-35.0) L 04/26/21 05:55 RDW 17.4 % (11.6-16.5) H 04/26/21 05:55 Plt Count 496 X10^3/uL (150.0-450.0) H 04/26/21 05:55 Plt Count Comment Adequate (ADEQUATE) 04/26/21 05:55 MPV 7.7 fL (7.4-11.0) 04/26/21 05:55 Neut % (Auto) 90.5 % (42.0-75.0) H 04/26/21 05:55 Lymph % (Auto) 5.5 % (21.0-51.0) L 04/26/21 05:55 [place] % (Auto) 3.4 % (0.0-13.0) 04/26/21 05:55 Eos % (Auto) 0.2 % (0.9-2.9) L 04/26/21 05:55 Baso % (Auto) 0.4 % (0.2-1.0) 04/26/21 05:55 Neut # (Auto) 14.8 x10^3/uL (2.2-4.8) H 04/26/21 05:55 Lymph # (Auto) 0.9 X10^3/uL (1.3-2.9) L 04/26/21 05:55 [place] # (Auto) 0.6 x10^3/uL (0.3-0.8) 04/26/21 05:55 Eos # (Auto) 0.0 x10^3/uL (0.0-0.2) 04/26/21 05:55 Baso # (Auto) 0.1 X10^3/uL (0.0-0.1) 04/26/21 05:55 Absolute Nucleated RBC 0.0 /100WBC 04/26/21 05:55 Total Counted 100 04/26/21 05:55 Neutrophils % (Manual) 88 % (39-76) H 04/26/21 05:55 Band Neutrophils % 3 % (0-10) 04/26/21 05:55 Lymphocytes % (Manual) 6 % (13-43) L 04/26/21 05:55 Monocytes % (Manual) 3 % (4-9) L 04/26/21 05:55 Plt Clumps, EDTA Few 04/24/21 04:22 Giant Platelets Moderate 04/24/21 04:22 Plt Morphology Comment Normal (NORMAL) 04/26/21 05:55 RBC Morphology Normal (NORMAL) 04/26/21 05:55 Hypochromasia Slight A 04/25/21 05:50 Anisocytosis Slight A 04/25/21 05:50 Sample Site Rra 04/23/21 19:55 ABG pH 7.540 (7.35-7.45) H 04/23/21 19:55 ABG pCO2 53.0 mmHg (35.0-45.0) H* 04/23/21 19:55 ABG pO2 72.0 mmHg (80.0-100.0) L 04/23/21 19:55 ABG HCO3 45.3 mmol/L (22-26) H* 04/23/21 19:55 ABG O2 Saturation 96.0 % (90-100) 04/23/21 19:55 ABG Base Excess 19.9 mmol/L (-2.0-2.0) H 04/23/21 19:55 Osmani Test Pos 04/23/21 19:55 A-a Gradient 11.0 mmHg 04/23/21 19:55 FiO2 21.0 04/23/21 19:55 Blood Gas Comments Jovan well mts 04/23/21 19:55 Sodium 147 mmol/L (136-145) H 04/26/21 05:55 Corrected Sodium TNP 04/26/21 05:55 Potassium 2.9 mmol/L (3.5-5.1) L* 04/26/21 05:55 Chloride 112 mmol/L (98-107) H 04/26/21 05:55 Carbon Dioxide 29.0 mmol/L (21-32) 04/26/21 05:55 BUN 17 mg/dL (7-18) 04/26/21 05:55 Creatinine 1.01 mg/dL (0.70-1.30) 04/26/21 05:55 Est GFR (MDRD) Af Amer > 60 (>60) 04/26/21 05:55 Est GFR (MDRD) Non-Af > 60 (>60) 04/26/21 05:55 Glucose 94 mg/dL (65-99) 04/26/21 05:55 Lactic Acid 1.5 mmol/L (0.4-2.0) 04/23/21 19:48 Calcium 8.9 mg/dL (8.5-10.1) 04/26/21 05:55 Corrected Calcium 10.8 mg/dL (8.5-10.1) H 04/26/21 05:55 Magnesium 2.1 mg/dL (1.7-2.9) 04/26/21 05:55 Total Bilirubin 0.40 mg/dL (0.2-1.0) 04/26/21 05:55 AST 18 Units/L (15-37) 04/26/21 05:55 ALT 15 Units/L (12-78) 04/26/21 05:55 Alkaline Phosphatase 128 Units/L (46-116) H 04/26/21 05:55 Troponin I < 0.02 ng/mL (0-1.5) 04/23/21 18:20 Total Protein 6.1 g/dL (6.4-8.2) L 04/26/21 05:55 Albumin 1.6 g/dL (3.4-5.0) L 04/26/21 05:55 Globulin 4.5 g/dL (2.5-4.5) 04/26/21 05:55 Albumin/Globulin Ratio 0.4 Ratio (1.1-2.1) L 04/26/21 05:55 Amylase 37 Units/L (25-115) 04/23/21 18:20 Lipase 57 Units/L (73-393) L 04/23/21 18:20 Specimen Type Random urine 04/23/21 21:33 Urine Color Yellow (YELLOW) 04/23/21 21:33 Urine Appearance Clear (CLEAR) 04/23/21 21:33 Urine pH 5.0 (5.0 - 8.0) 04/23/21 21:33 Ur Specific [place] 1.010 (1.000-1.030) 04/23/21 21:33 Urine Protein 3+ (NEGATIVE) 04/23/21 21:33 Urine Glucose (UA) Negative (NEGATIVE) 04/23/21 21:33 Urine Ketones 1+ (NEGATIVE) 04/23/21 21:33 Urine Occult Blood 4+ (NEGATIVE) 04/23/21 21:33 Urine Nitrite Negative (NEGATIVE) 04/23/21 21:33 Urine Bilirubin Negative (NEGATIVE) 04/23/21 21:33 Urine Urobilinogen Normal (NORMAL) 04/23/21 21:33 Ur Leukocyte Esterase 3+ (NEGATIVE) 04/23/21 21:33 Urine RBC 5-10 /HPF (0-3) A 04/23/21 21:33 Urine WBC Tntc /HPF (0-5) A 04/23/21 21:33 Ur Squamous Epith Cells Few /HPF (NEGATIVE) 04/23/21 21:33 Urine Bacteria 2+ /HPF (NEGATIVE) 04/23/21 21:33 Urine Mucus Few /HPF (NEGATIVE) 04/23/21 21:33 Urine Yeast Moderate /HPF (NEGATIVE) 04/23/21 21:33 Ur Culture Indicated? No/not indicated 04/23/21 21:33 SARS-CoV-2 (PCR) Negative (NEGATIVE) 04/23/21 21:32 Influenza Type A (PCR) Negative (NEGATIVE) 04/23/21 21:32 Influenza Type B (PCR) Negative (NEGATIVE) 04/23/21 21:32 RSV (PCR) Negative (NEGATIVE) 04/23/21 21:32 - Assessment and Plan 1: SBO . 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 s/o proximal colostomy and bilateral tube nephrostomies . maybe necrotic recatl ca . to place NGT .start TPN . not a surgical candidate .. - Problem Patient Problems: Patient Problems (This Medical Record has been edited. Action required.) Complete small bowel obstruction (Acute) K56.601 Pelvic mass (Acute) R19.00 Acute hypokalemia (Acute) E87.6
--- NOTE | 2021-04-26 12:57 | RAD ---
HISTORYCOLON CA, BOWEL OBSTRUCTIONSTUDYKUB x-ray one viewCOMPARISONX-ray 04/25/2021FINDINGSWorsening small bowel dilation with increased air in the small bowel. Small bowel is dilated up to 6.7 cm in diameter.Bilateral percutaneous nephrostomy tubes are suspected, unchanged. No colonic air is seen.IMPRESSIONProbable worsening small bowel obstructionElectronically signed by: Jon Barrett (Apr 26, 2021 12:55:53)
--- NOTE | 2021-04-26 13:50 | RAD ---
HISTORYNG TUBE PLACEMENTSTUDYKUBCOMPARISONSame day KUB.TECHNIQUEKUB, 3 images.FINDINGSNG tube in good position curling within the stomach. Unchanged gas-filled dilated small bowel consistent with obstruction. Bilateral nephrostomy tubes. No discernible free air, pneumatosis, or portal venous gas. Lung bases are clearIMPRESSIONNG tube in good position. Unchanged small bowel obstruction.Electronically signed by: Luther Escobedo (Apr 26, 2021 13:48:23)
[2021-04-26] MEDS ORDERED: PHARMACY CONSULT - TPN XX SCH (14:00)
[2021-04-26] MEDS: MORPHINE SULFATE INJ 2 MG INJ IVP PRN (14:26)
[2021-04-26] MEDS ORDERED: DEXTROSE 10% 1,000 ML IV PRN (14:55)
[2021-04-26] MEDS ORDERED: HumuLIN R SUBCUT PRN (14:55)
[2021-04-26] MEDS ORDERED: POTASSIUM CHLORIDE IV SCH ×2 (15:00)
[2021-04-26] MEDS ORDERED: CLINIMIX IV SCH ×2 (15:00)
[2021-04-26] MEDS: [UNRECOGNIZED DRUG - OTHER] IV SCH ×3 (16:00)
[2021-04-26] MEDS: POTASSIUM CHLORIDE IV SCH ×3 (16:00)
[2021-04-26] MEDS: CLINIMIX IV SCH ×3 (16:00)
[2021-04-27] MEDS: NS 1000 ML 1,000 ML IV SCH ×3 (01:51→14:27)
[2021-04-27] MEDS: FLAGYL IV PREMIX 500 MG BAG 500 MG/100 ML BAG IV SCH ×4 (02:15→20:25)
[2021-04-27] MEDS: [UNRECOGNIZED DRUG - OTHER] IV SCH ×9 (06:15→20:25)
[2021-04-27] MEDS: CLINIMIX IV SCH ×9 (06:15→20:25)
[2021-04-27] MEDS: POTASSIUM CHLORIDE IV SCH ×9 (06:15→20:25)
[2021-04-27 06:34] LABS: PREALBUMIN 6.6 mg/dL (18-35.7)
[2021-04-27 06:45] LABS: ALANINE AMINOTRANSFERASE 8 Units/L (12-78); ALBUMIN 1.5 g/dL (3.4-5.0); ALKALINE PHOSPHATASE 108 Units/L (46-116); ASPARTATE AMINO TRANSFERASE 16 Units/L (15-37); BLOOD UREA NITROGEN 14 mg/dL (7-18); CALCIUM 8.7 mg/dL (8.5-10.1); CARBON DIOXIDE 26.5 mmol/L (21-32); CHLORIDE 109 mmol/L (98-107); COR CA(FOR HYPOALB) 10.7 mg/dL (8.5-10.1); COR NA(FOR HYPERGLY) 141 mmol/L (136-145); MAGNESIUM 1.5 mg/dL (1.7-2.9); PHOSPHORUS 1.1 mg/dL (2.6-4.7); SODIUM 140 mmol/L (136-145); TOTAL PROTEIN 5.9 g/dL (6.4-8.2); TRIGLYCERIDES 82 mg/dL (0-150); eGFR NON BLACK RACES > 60 (>60)
[2021-04-27 08:44] VITALS: BMI 17.3
[2021-04-27] MEDS: PROTONIX INJ 40 MG VIAL IVP SCH (08:44)
[2021-04-27] MEDS: INVANZ INJ 1 GM VIAL 1 GM in NS 100 ML IV + SPIKE MINIBAG* 100 ML IV SCH (08:48)
[2021-04-27] MEDS: MORPHINE SULFATE INJ 2 MG INJ IVP PRN (13:54)
--- NOTE | 2021-04-27 17:27 | DR.PROGNOT ---
Hospital Progress Notes - Progress Note for Day of: Progress Note Date: 04/27/21 - Chief Complaint Chief Complaint: colostomy os functioning today . Pt is confused and pulled NGT again .. c/o nausea . no vomiting . having lower abdominal pain . abdominal xray showed SBO . BUN/Creat normal . WBC 16.4 - Past Medical Family Social History Past Med/Fam/Surg Hx: No changes since H&P Allergies: Allergies tramadol Allergy (Unknown, Verified 12/04/20 10:23) Penicillins Allergy (Verified 12/04/20 10:23) - Review Of Systems ROS: No change since H&P - Vital Signs Vital Signs: Temperature 98.7 F Pulse Rate 98 Respiratory Rate 17 Blood Pressure [Left Arm] 114/56 Blood Pressure 110/63 O2 Sat by Pulse Oximetry 95 - Physical Exam Oriented: Other (confused , disoriented .) Eyes: Normal Nose: Normal Throat: Normal Respiratory: Normal : Other (has bilateral nephrostomies ) GI: Tenderness: Other (abdomen with fullness .. colostomy is funsctioning .) Speech Pattern: Unclear - Laboratory and Diagnostics Result Diagrams: 04/26/21 05:55 04/27/21 05:49 Labs: Laboratory WBC 16.4 X10^3/uL (3.6-10.0) H 04/26/21 05:55 RBC 3.24 X10^6/uL (4.7-6.0) L 04/26/21 05:55 Hgb 9.4 g/dL (13.5-18.0) L 04/26/21 05:55 Hct 29.5 % (42.0-54.0) L 04/26/21 05:55 MCV 90.9 fL (80.0-100.0) 04/26/21 05:55 MCH 29.0 pg (27.0-34.0) 04/26/21 05:55 MCHC 31.9 g/dL (33.0-35.0) L 04/26/21 05:55 RDW 17.4 % (11.6-16.5) H 04/26/21 05:55 Plt Count 496 X10^3/uL (150.0-450.0) H 04/26/21 05:55 Plt Count Comment Adequate (ADEQUATE) 04/26/21 05:55 MPV 7.7 fL (7.4-11.0) 04/26/21 05:55 Neut % (Auto) 90.5 % (42.0-75.0) H 04/26/21 05:55 Lymph % (Auto) 5.5 % (21.0-51.0) L 04/26/21 05:55 [place] % (Auto) 3.4 % (0.0-13.0) 04/26/21 05:55 Eos % (Auto) 0.2 % (0.9-2.9) L 04/26/21 05:55 Baso % (Auto) 0.4 % (0.2-1.0) 04/26/21 05:55 Neut # (Auto) 14.8 x10^3/uL (2.2-4.8) H 04/26/21 05:55 Lymph # (Auto) 0.9 X10^3/uL (1.3-2.9) L 04/26/21 05:55 [place] # (Auto) 0.6 x10^3/uL (0.3-0.8) 04/26/21 05:55 Eos # (Auto) 0.0 x10^3/uL (0.0-0.2) 04/26/21 05:55 Baso # (Auto) 0.1 X10^3/uL (0.0-0.1) 04/26/21 05:55 Absolute Nucleated RBC 0.0 /100WBC 04/26/21 05:55 Total Counted 100 04/26/21 05:55 Neutrophils % (Manual) 88 % (39-76) H 04/26/21 05:55 Band Neutrophils % 3 % (0-10) 04/26/21 05:55 Lymphocytes % (Manual) 6 % (13-43) L 04/26/21 05:55 Monocytes % (Manual) 3 % (4-9) L 04/26/21 05:55 Plt Clumps, EDTA Few 04/24/21 04:22 Giant Platelets Moderate 04/24/21 04:22 Plt Morphology Comment Normal (NORMAL) 04/26/21 05:55 RBC Morphology Normal (NORMAL) 04/26/21 05:55 Hypochromasia Slight A 04/25/21 05:50 Anisocytosis Slight A 04/25/21 05:50 Sample Site Rra 04/23/21 19:55 ABG pH 7.540 (7.35-7.45) H 04/23/21 19:55 ABG pCO2 53.0 mmHg (35.0-45.0) H* 04/23/21 19:55 ABG pO2 72.0 mmHg (80.0-100.0) L 04/23/21 19:55 ABG HCO3 45.3 mmol/L (22-26) H* 04/23/21 19:55 ABG O2 Saturation 96.0 % (90-100) 04/23/21 19:55 ABG Base Excess 19.9 mmol/L (-2.0-2.0) H 04/23/21 19:55 Osmani Test Pos 04/23/21 19:55 A-a Gradient 11.0 mmHg 04/23/21 19:55 FiO2 21.0 04/23/21 19:55 Blood Gas Comments Jovan well mts 04/23/21 19:55 Sodium 140 mmol/L (136-145) 04/27/21 05:49 Corrected Sodium 141 mmol/L (136-145) 04/27/21 05:49 Potassium 3.6 mmol/L (3.5-5.1) 04/27/21 05:49 Chloride 109 mmol/L (98-107) H 04/27/21 05:49 Carbon Dioxide 26.5 mmol/L (21-32) 04/27/21 05:49 BUN 14 mg/dL (7-18) 04/27/21 05:49 Creatinine 1.10 mg/dL (0.70-1.30) 04/27/21 05:49 Est GFR (MDRD) Af Amer > 60 (>60) 04/27/21 05:49 Est GFR (MDRD) Non-Af > 60 (>60) 04/27/21 05:49 Glucose 142 mg/dL (65-99) H 04/27/21 05:49 POC Glucose (mg/dL) 132 mg/dL (65-99) H 04/27/21 14:46 Lactic Acid 1.5 mmol/L (0.4-2.0) 04/23/21 19:48 Calcium 8.7 mg/dL (8.5-10.1) 04/27/21 05:49 Corrected Calcium 10.7 mg/dL (8.5-10.1) H 04/27/21 05:49 Phosphorus 1.1 mg/dL (2.6-4.7) L 04/27/21 05:49 Magnesium 1.5 mg/dL (1.7-2.9) L 04/27/21 05:49 Total Bilirubin 0.30 mg/dL (0.2-1.0) 04/27/21 05:49 AST 16 Units/L (15-37) 04/27/21 05:49 ALT 8 Units/L (12-78) L 04/27/21 05:49 Alkaline Phosphatase 108 Units/L (46-116) 04/27/21 05:49 Troponin I < 0.02 ng/mL (0-1.5) 04/23/21 18:20 Total Protein 5.9 g/dL (6.4-8.2) L 04/27/21 05:49 Albumin 1.5 g/dL (3.4-5.0) L 04/27/21 05:49 Globulin 4.4 g/dL (2.5-4.5) 04/27/21 05:49 Albumin/Globulin Ratio 0.3 Ratio (1.1-2.1) L 04/27/21 05:49 Prealbumin 6.6 mg/dL (18-35.7) L 04/27/21 05:49 Triglycerides 82 mg/dL (0-150) 04/27/21 05:49 Amylase 37 Units/L (25-115) 04/23/21 18:20 Lipase 57 Units/L (73-393) L 04/23/21 18:20 Specimen Type Random urine 04/23/21 21:33 Urine Color Yellow (YELLOW) 04/23/21 21:33 Urine Appearance Clear (CLEAR) 04/23/21 21:33 Urine pH 5.0 (5.0 - 8.0) 04/23/21 21:33 Ur Specific [place] 1.010 (1.000-1.030) 04/23/21 21:33 Urine Protein 3+ (NEGATIVE) 04/23/21 21:33 Urine Glucose (UA) Negative (NEGATIVE) 04/23/21 21:33 Urine Ketones 1+ (NEGATIVE) 04/23/21 21:33 Urine Occult Blood 4+ (NEGATIVE) 04/23/21 21:33 Urine Nitrite Negative (NEGATIVE) 04/23/21 21:33 Urine Bilirubin Negative (NEGATIVE) 04/23/21 21:33 Urine Urobilinogen Normal (NORMAL) 04/23/21 21:33 Ur Leukocyte Esterase 3+ (NEGATIVE) 04/23/21 21:33 Urine RBC 5-10 /HPF (0-3) A 04/23/21 21:33 Urine WBC Tntc /HPF (0-5) A 04/23/21 21:33 Ur Squamous Epith Cells Few /HPF (NEGATIVE) 04/23/21 21:33 Urine Bacteria 2+ /HPF (NEGATIVE) 04/23/21 21:33 Urine Mucus Few /HPF (NEGATIVE) 04/23/21 21:33 Urine Yeast Moderate /HPF (NEGATIVE) 04/23/21 21:33 Ur Culture Indicated? No/not indicated 04/23/21 21:33 SARS-CoV-2 (PCR) Negative (NEGATIVE) 04/23/21 21:32 Influenza Type A (PCR) Negative (NEGATIVE) 04/23/21 21:32 Influenza Type B (PCR) Negative (NEGATIVE) 04/23/21 21:32 RSV (PCR) Negative (NEGATIVE) 04/23/21 21:32 - Assessment and Plan 1: SBO 2 nd to rectal ca. 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 s/o proximal colostomy and bilateral tube nephrostomies . maybe necrotic recatl ca . to place NGT .start TPN . not a surgical candidate .. same supportivcare for now .. - Problem Patient Problems: Patient Problems (This Medical Record has been edited. Action required.) Complete small bowel obstruction (Acute) K56.601 Pelvic mass (Acute) R19.00 Acute hypokalemia (Acute) E87.6
[2021-04-28] MEDS: CLINIMIX IV SCH ×12 (00:47→16:02)
[2021-04-28] MEDS: NS 1000 ML 1,000 ML IV SCH ×4 (00:47→21:28)
[2021-04-28] MEDS: [UNRECOGNIZED DRUG - OTHER] IV SCH ×12 (00:47→16:02)
[2021-04-28] MEDS: POTASSIUM CHLORIDE IV SCH ×12 (00:47→16:02)
[2021-04-28] MEDS: FLAGYL IV PREMIX 500 MG BAG 500 MG/100 ML BAG IV SCH ×4 (02:14→21:26)
[2021-04-28 06:35] LABS: BASOPHILS % (AUTO) 0.2 % (0.2-1.0); EOSINOPHILS % (AUTO) 0.2 % (0.9-2.9); HEMOGLOBIN 8.9 g/dL (13.5-18.0); LYMPHOCYTES # (AUTO) 1.2 X10^3/uL (1.3-2.9); LYMPHOCYTES % (AUTO) 8.7 % (21.0-51.0); MEAN CORPUSCULAR HEMOGLOBIN 28.9 pg (27.0-34.0); MEAN CORPUSCULAR HGB CONC 31.8 g/dL (33.0-35.0); MEAN CORPUSCULAR VOLUME 90.9 fL (80.0-100.0); MEAN PLATELET VOLUME 7.9 fL (7.4-11.0); MONOCYTES # (AUTO) 0.9 x10^3/uL (0.3-0.8); MONOCYTES % (AUTO) 6.7 % (0.0-13.0); NEUTROPHILS # (AUTO) 11.6 x10^3/uL (2.2-4.8); NEUTROPHILS % (AUTO) 84.2 % (42.0-75.0); PLATELET COUNT 409 X10^3/uL (150.0-450.0); RED BLOOD COUNT 3.08 X10^6/uL (4.7-6.0); RED CELL DISTRIBUTION WIDTH 17.1 % (11.6-16.5); WHITE BLOOD COUNT 13.8 X10^3/uL (3.6-10.0)
[2021-04-28 06:37] LABS: ALANINE AMINOTRANSFERASE 7 Units/L (12-78); ALBUMIN 1.6 g/dL (3.4-5.0); ALKALINE PHOSPHATASE 111 Units/L (46-116); ASPARTATE AMINO TRANSFERASE 16 Units/L (15-37); BLOOD UREA NITROGEN 17 mg/dL (7-18); CARBON DIOXIDE 24.3 mmol/L (21-32); CHLORIDE 109 mmol/L (98-107); COR CA(FOR HYPOALB) 10.9 mg/dL (8.5-10.1); COR NA(FOR HYPERGLY) 141 mmol/L (136-145); CREATININE 0.96 mg/dL (0.70-1.30); SODIUM 140 mmol/L (136-145); TOTAL PROTEIN 6.4 g/dL (6.4-8.2); eGFR NON BLACK RACES > 60 (>60)
[2021-04-28] MEDS: INVANZ INJ 1 GM VIAL 1 GM in NS 100 ML IV + SPIKE MINIBAG* 100 ML IV SCH (08:42)
[2021-04-28] MEDS: PROTONIX INJ 40 MG VIAL IVP SCH (08:42)
[2021-04-28] MEDS: K-RIDER 10 MEQ/NS 100 ML 10 MEQ/100 ML BAG IV PRN ×4 (11:15→17:24)
[2021-04-28] MEDS: MORPHINE SULFATE INJ 2 MG INJ IVP PRN ×2 (11:23→17:23)
[2021-04-29] MEDS: FLAGYL IV PREMIX 500 MG BAG 500 MG/100 ML BAG IV SCH ×2 (04:00→08:31)
[2021-04-29 06:15] LABS: BASOPHILS % (AUTO) 0.3 % (0.2-1.0); EOSINOPHILS % (AUTO) 0.4 % (0.9-2.9); HEMATOCRIT 26.3 % (42.0-54.0); HEMOGLOBIN 8.6 g/dL (13.5-18.0); LYMPHOCYTES # (AUTO) 1.2 X10^3/uL (1.3-2.9); MEAN CORPUSCULAR HEMOGLOBIN 29.1 pg (27.0-34.0); MEAN CORPUSCULAR HGB CONC 32.7 g/dL (33.0-35.0); MEAN CORPUSCULAR VOLUME 88.9 fL (80.0-100.0); MEAN PLATELET VOLUME 7.9 fL (7.4-11.0); MONOCYTES # (AUTO) 1.1 x10^3/uL (0.3-0.8); NEUTROPHILS # (AUTO) 9.6 x10^3/uL (2.2-4.8); NEUTROPHILS % (AUTO) 80.3 % (42.0-75.0); PLATELET COUNT 407 X10^3/uL (150.0-450.0); RED BLOOD COUNT 2.95 X10^6/uL (4.7-6.0); RED CELL DISTRIBUTION WIDTH 17.2 % (11.6-16.5); WHITE BLOOD COUNT 11.9 X10^3/uL (3.6-10.0)
[2021-04-29 06:27] LABS: ALANINE AMINOTRANSFERASE 13 Units/L (12-78); ALBUMIN 1.6 g/dL (3.4-5.0); ALKALINE PHOSPHATASE 128 Units/L (46-116); ASPARTATE AMINO TRANSFERASE 24 Units/L (15-37); BLOOD UREA NITROGEN 18 mg/dL (7-18); CARBON DIOXIDE 23.3 mmol/L (21-32); CHLORIDE 108 mmol/L (98-107); COR CA(FOR HYPOALB) 10.9 mg/dL (8.5-10.1); COR NA(FOR HYPERGLY) 139 mmol/L (136-145); CREATININE 0.98 mg/dL (0.70-1.30); SODIUM 138 mmol/L (136-145); TOTAL PROTEIN 6.4 g/dL (6.4-8.2); eGFR NON BLACK RACES > 60 (>60)
[2021-04-29] MEDS: NS 1000 ML 1,000 ML IV SCH ×2 (07:20→08:37)
[2021-04-29] MEDS: MORPHINE SULFATE INJ 2 MG INJ IVP PRN (07:28)
[2021-04-29] MEDS: POTASSIUM CHLORIDE IV SCH ×3 (07:58)
[2021-04-29] MEDS: [UNRECOGNIZED DRUG - OTHER] IV SCH ×3 (07:58)
[2021-04-29] MEDS: CLINIMIX IV SCH ×3 (07:58)
[2021-04-29] MEDS: PROTONIX INJ 40 MG VIAL IVP SCH (08:31)
[2021-04-29] MEDS: INVANZ INJ 1 GM VIAL 1 GM in NS 100 ML IV + SPIKE MINIBAG* 100 ML IV SCH (08:31)
--- NOTE | 2021-04-29 11:16 | DR.PROGNOT ---
Hospital Progress Notes - Progress Note for Day of: Progress Note Date: 04/29/21 - Chief Complaint Chief Complaint: c/o nausea .. poor oral intake . small amount of stool in colostomy. WBC 11.4 . Hgb 8.4. moderate distended abdomen . - Past Medical Family Social History Past Med/Fam/Surg Hx: No changes since H&P Allergies: Allergies tramadol Allergy (Unknown, Verified 12/04/20 10:23) Penicillins Allergy (Verified 12/04/20 10:23) - Review Of Systems ROS: No change since H&P - Vital Signs Vital Signs: Temperature 98.2 F Pulse Rate 96 Respiratory Rate 20 Blood Pressure [Left Arm] 114/56 Blood Pressure 102/59 O2 Sat by Pulse Oximetry 98 - Physical Exam Oriented: Other (confused , disoriented .) Eyes: Normal Nose: Normal Throat: Normal Respiratory: Normal : Other (has bilateral nephrostomies ) GI: Tenderness: Other (abdomen with fullness .. colostomy is funsctioning .) Speech Pattern: Unclear - Laboratory and Diagnostics Result Diagrams: 04/29/21 05:38 04/29/21 05:38 Labs: Laboratory WBC 11.9 X10^3/uL (3.6-10.0) H 04/29/21 05:38 RBC 2.95 X10^6/uL (4.7-6.0) L 04/29/21 05:38 Hgb 8.6 g/dL (13.5-18.0) L 04/29/21 05:38 Hct 26.3 % (42.0-54.0) L 04/29/21 05:38 MCV 88.9 fL (80.0-100.0) 04/29/21 05:38 MCH 29.1 pg (27.0-34.0) 04/29/21 05:38 MCHC 32.7 g/dL (33.0-35.0) L 04/29/21 05:38 RDW 17.2 % (11.6-16.5) H 04/29/21 05:38 Plt Count 407 X10^3/uL (150.0-450.0) 04/29/21 05:38 Plt Count Comment Adequate (ADEQUATE) 04/26/21 05:55 MPV 7.9 fL (7.4-11.0) 04/29/21 05:38 Neut % (Auto) 80.3 % (42.0-75.0) H 04/29/21 05:38 Lymph % (Auto) 10.0 % (21.0-51.0) L 04/29/21 05:38 [place] % (Auto) 9.0 % (0.0-13.0) 04/29/21 05:38 Eos % (Auto) 0.4 % (0.9-2.9) L 04/29/21 05:38 Baso % (Auto) 0.3 % (0.2-1.0) 04/29/21 05:38 Neut # (Auto) 9.6 x10^3/uL (2.2-4.8) H 04/29/21 05:38 Lymph # (Auto) 1.2 X10^3/uL (1.3-2.9) L 04/29/21 05:38 [place] # (Auto) 1.1 x10^3/uL (0.3-0.8) H 04/29/21 05:38 Eos # (Auto) 0.0 x10^3/uL (0.0-0.2) 04/29/21 05:38 Baso # (Auto) 0.0 X10^3/uL (0.0-0.1) 04/29/21 05:38 Absolute Nucleated RBC 0.0 /100WBC 04/29/21 05:38 Total Counted 100 04/26/21 05:55 Neutrophils % (Manual) 88 % (39-76) H 04/26/21 05:55 Band Neutrophils % 3 % (0-10) 04/26/21 05:55 Lymphocytes % (Manual) 6 % (13-43) L 04/26/21 05:55 Monocytes % (Manual) 3 % (4-9) L 04/26/21 05:55 Plt Clumps, EDTA Few 04/24/21 04:22 Giant Platelets Moderate 04/24/21 04:22 Plt Morphology Comment Normal (NORMAL) 04/26/21 05:55 RBC Morphology Normal (NORMAL) 04/26/21 05:55 Hypochromasia Slight A 04/25/21 05:50 Anisocytosis Slight A 04/25/21 05:50 Sample Site Rra 04/23/21 19:55 ABG pH 7.540 (7.35-7.45) H 04/23/21 19:55 ABG pCO2 53.0 mmHg (35.0-45.0) H* 04/23/21 19:55 ABG pO2 72.0 mmHg (80.0-100.0) L 04/23/21 19:55 ABG HCO3 45.3 mmol/L (22-26) H* 04/23/21 19:55 ABG O2 Saturation 96.0 % (90-100) 04/23/21 19:55 ABG Base Excess 19.9 mmol/L (-2.0-2.0) H 04/23/21 19:55 Osmani Test Pos 04/23/21 19:55 A-a Gradient 11.0 mmHg 04/23/21 19:55 FiO2 21.0 04/23/21 19:55 Blood Gas Comments Jovan well mts 04/23/21 19:55 Sodium 138 mmol/L (136-145) 04/29/21 05:38 Corrected Sodium 139 mmol/L (136-145) 04/29/21 05:38 Potassium 3.6 mmol/L (3.5-5.1) 04/29/21 05:38 Chloride 108 mmol/L (98-107) H 04/29/21 05:38 Carbon Dioxide 23.3 mmol/L (21-32) 04/29/21 05:38 BUN 18 mg/dL (7-18) 04/29/21 05:38 Creatinine 0.98 mg/dL (0.70-1.30) 04/29/21 05:38 Est GFR (MDRD) Af Amer > 60 (>60) 04/29/21 05:38 Est GFR (MDRD) Non-Af > 60 (>60) 04/29/21 05:38 Glucose 143 mg/dL (65-99) H 04/29/21 05:38 POC Glucose (mg/dL) 106 mg/dL (65-99) H 04/29/21 07:24 Lactic Acid 1.5 mmol/L (0.4-2.0) 04/23/21 19:48 Calcium 9.0 mg/dL (8.5-10.1) 04/29/21 05:38 Corrected Calcium 10.9 mg/dL (8.5-10.1) H 04/29/21 05:38 Phosphorus 1.1 mg/dL (2.6-4.7) L 04/27/21 05:49 Magnesium 1.5 mg/dL (1.7-2.9) L 04/27/21 05:49 Total Bilirubin 0.40 mg/dL (0.2-1.0) 04/29/21 05:38 AST 24 Units/L (15-37) 04/29/21 05:38 ALT 13 Units/L (12-78) 04/29/21 05:38 Alkaline Phosphatase 128 Units/L (46-116) H 04/29/21 05:38 Troponin I < 0.02 ng/mL (0-1.5) 04/23/21 18:20 Total Protein 6.4 g/dL (6.4-8.2) 04/29/21 05:38 Albumin 1.6 g/dL (3.4-5.0) L 04/29/21 05:38 Globulin 4.8 g/dL (2.5-4.5) H 04/29/21 05:38 Albumin/Globulin Ratio 0.3 Ratio (1.1-2.1) L 04/29/21 05:38 Prealbumin 6.6 mg/dL (18-35.7) L 04/27/21 05:49 Triglycerides 82 mg/dL (0-150) 04/27/21 05:49 Amylase 37 Units/L (25-115) 04/23/21 18:20 Lipase 57 Units/L (73-393) L 04/23/21 18:20 Specimen Type Random urine 04/23/21 21:33 Urine Color Yellow (YELLOW) 04/23/21 21:33 Urine Appearance Clear (CLEAR) 04/23/21 21:33 Urine pH 5.0 (5.0 - 8.0) 04/23/21 21:33 Ur Specific [place] 1.010 (1.000-1.030) 04/23/21 21:33 Urine Protein 3+ (NEGATIVE) 04/23/21 21:33 Urine Glucose (UA) Negative (NEGATIVE) 04/23/21 21:33 Urine Ketones 1+ (NEGATIVE) 04/23/21 21:33 Urine Occult Blood 4+ (NEGATIVE) 04/23/21 21:33 Urine Nitrite Negative (NEGATIVE) 04/23/21 21:33 Urine Bilirubin Negative (NEGATIVE) 04/23/21 21:33 Urine Urobilinogen Normal (NORMAL) 04/23/21 21:33 Ur Leukocyte Esterase 3+ (NEGATIVE) 04/23/21 21:33 Urine RBC 5-10 /HPF (0-3) A 04/23/21 21:33 Urine WBC Tntc /HPF (0-5) A 04/23/21 21:33 Ur Squamous Epith Cells Few /HPF (NEGATIVE) 04/23/21 21:33 Urine Bacteria 2+ /HPF (NEGATIVE) 04/23/21 21:33 Urine Mucus Few /HPF (NEGATIVE) 04/23/21 21:33 Urine Yeast Moderate /HPF (NEGATIVE) 04/23/21 21:33 Ur Culture Indicated? No/not indicated 04/23/21 21:33 SARS-CoV-2 (PCR) Negative (NEGATIVE) 04/23/21 21:32 Influenza Type A (PCR) Negative (NEGATIVE) 04/23/21 21:32 Influenza Type B (PCR) Negative (NEGATIVE) 04/23/21 21:32 RSV (PCR) Negative (NEGATIVE) 04/23/21 21:32 - Assessment and Plan 1: SBO 2 nd to rectal ca. 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 s/o proximal colostomy and bilateral tube nephrostomies . maybe necrotic recatl ca . pt will be placed on Hospice care . PEG tube could be helpfull instead of NGT to drain the stomach if needed .... - Problem Patient Problems: Patient Problems (This Medical Record has been edited. Action required.) Complete small bowel obstruction (Acute) K56.601 Pelvic mass (Acute) R19.00 Acute hypokalemia (Acute) E87.6
[2021-04-29 11:28] VITALS: BP 95/58
[2021-04-29] MEDS ORDERED: HEPARIN SODIUM INJ 5000 UNITS IVP ONE (11:30)
== END 2021-04-29 13:08 | disposition hospice, home (50) | DRG 389 ==
LOC: ER 17:40 → OBS 04-24 06:12 → MED/SURG 04-25 01:11
PROVIDERS: ADMIT Internal Medicine; ATTEND Obstetrics & Gynecology Obstetrics
DX: N39.0 Urinary tract infection, site not specified; R19.09 Other intra-abdominal and pelvic swelling, mass and lump; I95.89 Other hypotension; E86.0 Dehydration; Z93.3 Colostomy status; R11.2 Nausea with vomiting, unspecified; C20 Malignant neoplasm of rectum; R94.31 Abnormal electrocardiogram [ECG] [EKG]; Z20.822 Contact with and (suspected) exposure to COVID-19; E87.6 Hypokalemia; N17.8 Other acute kidney failure; K56.691 Other complete intestinal obstruction